=== PATIENT | female | born 1960 | race African-American/Black ===

== ENCOUNTER 2017-07-19 07:32 | Observation (INO) | payer OTHER ==
[2017-07-19 07:56] LABS: #Eosinphils 0.1 thou/uL (0.0-0.7); #Lymphocytes 2.3 thou/uL (1.20-3.40); #Monocytes 0.4 thou/uL (0.11-0.59); #Neutrophils 4.3 thou/uL (1.40-6.50); %Lymphocytes 31.9 % (21.0-51.0); %Monocytes 6.2 % (0.0-10.0); Hematocrit 40.4 % (36.0-47.0); Red Blood Cell (RBC) Count 4.46 mill/uL (4.20-5.40); White Blood Cell (WBC) Count 7.2 thou/uL (4.8-10.8)
--- NOTE | 2017-07-19 08:08 | RAD ---
CHEST 1 VIEW: Date: 07/19/17 HISTORY: Chest pain. Tachycardia. COMPARISON: Chest 2 view dated 06/22/17. FINDINGS: Lungs are clear. No pneumothorax or effusion. Cardiac silhouette and mediastinal contours are normal . IMPRESSION: No acute intrathoracic abnormality. POS: MED
[2017-07-19 08:24] LABS: ALT (SGPT) 18 U/L (8-55); AST (SGOT) 14 U/L (5-34); Alkaline Phosphatase 95 U/L (40-150); Anion Gap 16 mmol/L (10-20); BUN (Urea Nitrogen) 11 mg/dL (9.8-20.1); Bilirubin, Total 0.3 mg/dL (0.2-1.2); CK (CPK) 123 U/L (29-168); Calc. Creatinine Clearance 0 mL/min (70-130); Calcium 9.7 mg/dL (7.8-10.44); Carbon Dioxide 25 mmol/L (22-29); Chloride 104 mmol/L (98-107); Estimated GFR-MDRD 79; Globulin 3.9 g/dL (2.4-3.5); Protein, Total 7.9 g/dL (6.0-8.3)
[2017-07-19 08:27] LABS: Troponin I Less than 0.010 ng/mL (< 0.028)
--- NOTE | 2017-07-19 10:23 | CT ---
CT ARTERIOGRAM CHEST WITH IV CONTRAST AND 3D MIP IMAGING: History: Chest pain, tachycardia. FINDINGS: There is good contrast opacification of the pulmonary arteries and thoracic aorta with normal branch ing of the great vessels from the aortic arch. No pneumothorax, pleural fluid, or mediastinal adenop athy are apparent. Reactive appearing lymph nodes are partially visualized of each axilla. Subglandu lar bilateral breast implants are in place. IMPRESSION: No CT evidence of pulmonary embolus. POS: LUIZA
[2017-07-19 13:35] LABS: Magnesium 1.6 mg/dL (1.6-2.6); Phosphorus 2.8 mg/dL (2.3-4.7)
[2017-07-19 13:39] LABS: Troponin I Less than 0.010 ng/mL (< 0.028)
[2017-07-19] MEDS ORDERED: Acetaminophen 325 MG TAB PO PRN (14:02)
[2017-07-19] MEDS ORDERED: Ondansetron ODT 4 MG TAB PO PRN (14:02)
[2017-07-19] MEDS ORDERED: Ondansetron HCl/PF 4 MG/2 ML Vial IVP PRN (14:02)
[2017-07-19 14:30] VITALS: BMI 43.6
[2017-07-19 15:43] LABS: Troponin I Less than 0.010 ng/mL (< 0.028)
[2017-07-19] MEDS ORDERED: Sodium Chloride 0.9% 1,000 ML IV SCH (16:00)
[2017-07-19] MEDS ORDERED: ISOVUE-370 76%-LOCM 1 ML ONE (16:26)
--- NOTE | 2017-07-19 23:34 | CON ---
DATE OF CONSULTATION: 07/19/2017 ELECTROPHYSIOLOGY CONSULTATION REFERRING PHYSICIAN: Dr. Jey Blas. HISTORY OF PRESENT ILLNESS: I am seeing Ms. 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 Her problems are: 1. Paroxysmal tachyarrhythmias. A. Previous admission in 12/2016. At that point, cardiac workup demonstrated no ischemia and mannie l LVEF on a stress test. B. No documented strips from the tachyarrhythmia episodes. 2. Coronary artery risk factors. A. Hypertension. B. Elevated BMI. ALLERGIES: PENICILLINS. MEDICATIONS AT HOME: Included Norvasc which was recently started. She is off atenolol which she wa s taking before. She is on estrogen supplements, cholecalciferol, multivitamin, magnesium oxide, an d aspirin. SUBJECTIVE: Ms. Bowen is here due to rapid palpitations. 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 She had a monitor placed on her in day surgery, but it was not recorded. She subsequently was sent to the ER where her rhythm was back to normal. These spells are very similar to prior arrhyth laith episodes back in December, at which point she was admitted, then had full cardiac workup, but no ta chyarrhythmia documented. At that point, she was on beta-blockers. She has no stroke-like symptoms or neurological deficits. No fever, chills, or cough. She has no PND or orthopnea at this time. No bleeding issues. REVIEW OF SYSTEMS: The rest of the 12-point review of systems overall unremarkable. PAST MEDICAL HISTORY: As above. SOCIAL HISTORY: The patient denies smoking, ETOH, or drug abuse. She is a registered nurse in our OR. FAMILY HISTORY: Noncontributory. OBJECTIVE DATA: VITAL SIGNS: Blood pressure is 145/86, heart rate 77, respirations 16, temperature 97.7 degrees Fah renheit. GENERAL: She is an alert and oriented woman, in no apparent distress. NECK: Supple. Jugular veins are not distended. CHEST: Coarse without crackles. CARDIOVASCULAR: Heart sounds are regular to rate and rhythm. No murmur or gallop. ABDOMEN: Benign. Bowel sounds positive. EXTREMITIES: Lower extremities without edema, clubbing, or cyanosis. DATABASE: EKGs reviewed from the ER revealing sinus rhythm, rate of 94 beats per minute, no signifi cant ST-T wave changes. Narrow QRS at 82 milliseconds noted. LABORATORY DATA: Sodium 141, potassium 3.5, BUN 11, creatinine 0.89. AST and ALT are 14 and 18. C K 123. Troponin I is less than 0.01 and 0.01. Albumin and globulin are 4 and 3.9. ASSESSMENT AND PLAN: Ms. Bowen is a pleasant 56-year-old woman with a prior history of hypertension , who has recurrent tachypalpitations. Although, she was noted to have heart rates in attach monito r today with palpitations started, it was unfortunately not recorded, not available to me. So far, we are not able to exactly diagnose arrhythmias, but they are definitely present. I discussed treatment options. She already tried beta-blockers and atenolol in the past with breakt hrough arrhythmias with that as well back in December. Considerations to resume beta blockers, increas ing dosages versus switching to diltiazem were discussed with her. On the other hand, she would lik e to have a more accurate diagnosis and this could be done through an electrophysiology study. Also discussed different arrhythmias as well as the statistical chances of her having each which we coul d induce on the EP study. I did discuss the ablation procedures for atrioventricular john reentry tachycardia flutter ablation discussed as well. We might consider basic ablation maneuvers if indee d atrioventricular john reentry tachycardia or flutter is induced or atrioventricular reentrant tac hycardia is induced. Might require medical therapy if atrial fibrillation is seen. For now, stroke risk is low. Risks, benefits of the potential infection, bleeding, tamponade, recurrence, bradycar leilani requiring pacing, stroke risk are all detailed. She understands and willing to proceed. We will schedule her a near date. Thank you again for allowing me to participate in the care of this patient. We will follow with you . Discussed the case with the patient, nurse, and the primary family residents as well.
[2017-07-20 04:54] LABS: #Eosinphils 0.2 thou/uL (0.0-0.7); #Lymphocytes 2.3 thou/uL (1.20-3.40); #Monocytes 0.4 thou/uL (0.11-0.59); #Neutrophils 3.5 thou/uL (1.40-6.50); %Basophils 0.3 % (0.0-1.0); %Eosinophils 2.6 % (0.0-10.0); %Lymphocytes 36.2 % (21.0-51.0); %Monocytes 6.4 % (0.0-10.0); Hematocrit 35.6 % (36.0-47.0); Red Blood Cell (RBC) Count 3.93 mill/uL (4.20-5.40); White Blood Cell (WBC) Count 6.4 thou/uL (4.8-10.8)
--- NOTE | 2017-07-20 04:59 | HP-2 ---
PRIMARY CARE PHYSICIAN: Shahab Gilliland M.D. ATTENDING PHYSICIAN: Fatmata Whitehead M.D. ADMITTING RESIDENT: Artie Arechiga MD. CODE STATUS: FULL. CHIEF COMPLAINT: Palpitations. HISTORY OF PRESENT ILLNESS: This is a 56-year-old female with previous episodes of paroxysmal palpi tations, who presented this morning with chest pain, shortness of breath, and palpitations that star franko suddenly at work. 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 Hospital staff was around the patient and quickly hooked he r up to monitors which showed a heart rate in the 180s. This was not a 12-lead EKG, but per witness es, it appeared to be SVT to the nurses on hand. The patient was wheeled down to the ER. No EKG fr om that time was available at the time of the admission. The patient denies nausea, vomiting, and d iarrhea. Symptoms lasted for 45 minutes. They seemed to resolve after several times the patient to bear down to cause a vagal maneuver. Eventually, this brought her heart rate down. She did not re ceive any medications to reduce her heart rate. In the ER, she was given aspirin. PAST MEDICAL HISTORY: 1. Hypertension. 2. Osteoarthritis. PAST SURGICAL HISTORY: 1. Tonsils and adenoids removed in 1987. 2. BTL in 1982. 3. Bilateral breast augmentation in 1992. 4. Total vaginal hysterectomy with BSO in 1989. 5. Left knee arthroscopy in 2001. 6. Right knee arthroscopy in 2012. 7. Left endoscopic plantar fascia release in 2009. 8. Left tympanoplasty in 2012. 9. Abdominoplasty in 2007. SOCIAL HISTORY: The patient is a never smoker, drinks approximately 1drink per week and denies any recreational drugs. Her occupation is as an operating room nurse. REVIEW OF SYSTEMS: A twelve-point review of systems was done and was negative for everything except for what is listed above. Respiratory: Positive for shortness of breath. Cardiovascular: Positi ve for chest pain, palpitations, and diaphoresis. PHYSICAL EXAMINATION: VITAL SIGNS: Blood pressure 141/88, pulse 72, respiratory rate 14, T-max 97.5, pulse ox 98% on room air. GENERAL: The patient is alert and oriented x4, in no acute distress, obese, and appropriately inter active. EYES: PERRLA, EOMI. Conjunctivae are within normal limits. ENT: Showed normal nasal mucosa and oropharynx. NECK: Supple without lymphadenopathy. No bruits. CARDIOVASCULAR: Regular rate and rhythm without murmurs or gallops. Radial pulses 2+, pedal pulses 2+. RESPIRATORY: Normal effort without retractions. Clear to auscultation bilaterally. SKIN: Warm and dry without cyanosis or lesions. ABDOMEN: Soft, nontender to palpation. Bowel sounds x4 without mass or distention. EXTREMITIES: No clubbing, cyanosis, or edema. MUSCULOSKELETAL: Structure and tone within normal limits. NEUROLOGIC: No focal deficits. Sensation is within normal limits. LABORATORY DATA: White blood cell count 7.2, hemoglobin 13.0, hematocrit 40.4, platelets 385. Sodi um 141, potassium 3.5, chloride 104, bicarbonate 25, BUN 11, creatinine 0.89, glucose 124. Troponin was 0.010 x3. TSH 6 months ago was 2.7. Chest x-ray showed no acute disease. Chest CT was negati ve for pulmonary embolism and showed no other acute disease in the cardiothoracic region. [facility] while the patient was nonsymptomatic, was normal sinus rhythm. ASSESSMENT AND PLAN: 1. Paroxysmal supraventricular tachycardia. We do not have EKG available, but the rate of 180 is n ot consistent with sinus tachycardia and it is quick onset and resolution, it is also not consistent sinus tachycardia, more consistent with paroxysmal supraventricular tachycardia. Dr. Goldsmith with [facility] was consulted in the emergency department and plans [facility] with possible ablation if schedule allows tomorrow. We will make the patient n.p.o . at midnight. If the patient cannot be fit into the schedule tomorrow, he is discussed that he may discharge the patient with rate control medications and follow up soon for study as described above . 2. Hypertension, controlled. Continue amlodipine. 3. Osteoarthritis. We will hold home Celebrex and Tylenol as needed for pain. 4. Surgical menopause. We will continue the patient's home Premarin. History and physical exam, as well as management, discussed with Dr. Fatmata Whitehead who is in [facility] nt.
[2017-07-20 05:10] LABS: PTT 28.6 SEC (22.9-36.1); Prothrombin Time 14.3 SEC (12.0-14.7)
[2017-07-20 05:16] LABS: Anion Gap 9 mmol/L (10-20); BUN (Urea Nitrogen) 11 mg/dL (9.8-20.1); Calc. Creatinine Clearance 178 mL/min (70-130); Calcium 8.7 mg/dL (7.8-10.44); Carbon Dioxide 27 mmol/L (22-29); Chloride 104 mmol/L (98-107); Estimated GFR-MDRD Greater than 90
[2017-07-20] MEDS ORDERED: Potassium Chloride 20 MEQ TAB PO SCH (07:00)
[2017-07-20] MEDS ORDERED: Potassium Chloride 40 MEQ in Sodium Chloride 0.9% 500 ML IVPB SCH (07:45)
--- NOTE | 2017-07-20 08:11 | PDOC.FM ---
- Subjective Subjective: Patient doing well this AM. No significant overnight events. She did have another episode of SVT that resolved with vagal maneuver yesterday evening after being admitted to hospital. - Objective MAR Reviewed: Yes Vital Signs & Weight: Vital Signs (12 hours) Temp Pulse Resp BP BP Pulse Ox 07/20/17 08:00 97.6 F 72 18 136/73 96 07/20/17 07:31 76 145/78 H 07/20/17 07:05 97.6 F 72 18 136/73 96 07/20/17 03:49 98.7 F 76 16 145/78 H 96 07/19/17 22:47 98.6 F 76 16 140/90 97 Weight Weight 137.847 kg I&O: 07/19/17 07/20/17 07/21/17 06:59 06:59 06:59 Intake Total 902 Output Total 600 Balance 302 Result Diagrams: 07/20/17 03:52 07/20/17 03:52 <Karen Ramos - Last Filed: 07/20/17 08:17> - Objective Vital Signs & Weight: Vital Signs (12 hours) Temp Pulse Resp BP BP Pulse Ox 07/20/17 11:03 98.3 F 74 18 135/75 97 07/20/17 08:00 97.6 F 72 18 136/73 96 07/20/17 07:31 76 145/78 H 07/20/17 07:05 97.6 F 72 18 136/73 96 07/20/17 03:49 98.7 F 76 16 145/78 H 96 Weight Weight 137.847 kg I&O: 07/19/17 07/20/17 07/21/17 06:59 06:59 06:59 Intake Total 902 Output Total 600 Balance 302 Result Diagrams: 07/20/17 03:52 07/20/17 03:52 <Charles Muñiz - Last Filed: 07/20/17 11:57> Phys Exam - Physical Examination Constitutional: NAD HEENT: moist MMs, sclera anicteric Neck: supple, full ROM Respiratory: no wheezing, no rales, no rhonchi, clear to auscultation bilateral Cardiovascular: RRR, no significant murmur, no rub Gastrointestinal: soft, non-tender, no distention, positive bowel sounds obese trace edema Neurological: moves all 4 limbs Psychiatric: normal affect, A&O x 3 Skin: no rash, normal turgor, cap refill <2 seconds <Karen Ramos - Last Filed: 07/20/17 08:17> Dx/Plan (1) Paroxysmal SVT (supraventricular tachycardia) Code(s): I47.1 - SUPRAVENTRICULAR TACHYCARDIA Status: Acute Plan: -HR in 180's on admission; resolved with vagal maneuvers -Dr. Goldsmith, home teaching grades 9 thru 12 teacher, consulted; appreciate recommendations -Plans for EP study to evaluate cause of arrhythmias if schedule allows -If schedule does not allow for procedure today, plans for discharge home with rate control medications and EP study in near future -Chest CTA negative for PE (2) HTN (hypertension) Code(s): I10 - ESSENTIAL (PRIMARY) HYPERTENSION Status: Acute Plan: -Continue amlodipine -Monitor BP -BP 145/78 this AM (3) Osteoarthritis Code(s): M19.90 - UNSPECIFIED OSTEOARTHRITIS, UNSPECIFIED SITE Status: Acute Plan: -Hold celebrex in case study is performed -Tylenol as needed for pain (4) Obesity Code(s): E66.9 - OBESITY, UNSPECIFIED Status: Acute Qualifiers: Body mass index: BMI 40.0-44.9 Plan: -Recommend diet and exercise (5) Surgical menopause Code(s): E89.40 - ASYMPTOMATIC POSTPROCEDURAL OVARIAN FAILURE Status: Acute Plan: -Continue primerin <Karen Ramos - Last Filed: 07/20/17 08:17> Attending Addendum - Attending Addendum I personally evaluated the patient and discussed the management with Dr. Olmedo. I agree with the History, Examination, Assessment and Plan documented above with any addition or exceptions noted below. Feels fine now. At least one documented run of SVT on monitor. Dr. Goldsmith to consider EP study/ablation. Lungs: CTA, Cor: RRR no murmur or gallop. Rajiv <Charles Muñiz - Last Filed: 07/20/17 11:57>
--- NOTE | 2017-07-20 13:50 | PRG ---
DATE OF SERVICE: 07/20/2017 I am seeing Ms. Bowen at our [facility] telemetry floor as a followup. SUBJECTIVE: Mrs. Bowen is essentially doing well. OBJECTIVE DATA: VITAL SIGNS: Blood pressure is 135/75, heart rate 74, respirations 18, temperature 98.3 degrees Fah renheit. GENERAL: Alert and oriented woman with elevated BMI, in no apparent distress. NECK: Supple. Jugular veins not distended. CHEST: Coarse without crackles. CARDIOVASCULAR: Heart sounds are regular rate and rhythm. No murmur or gallop. ABDOMEN: Benign. EXTREMITIES: Lower extremities without edema, clubbing or cyanosis. LABORATORY DATA: Hemoglobin 11.4, white cell count is 6.4, platelet count is 328. INR 1.1. Sodium 137, potassium 3.4, BUN 9, creatinine 0.77. ASSESSMENT AND PLAN: Ms. Bowen is a pleasant 56-year-old woman with history of recurrent palpitatio ns. She has had episodes of tachy palpitations and on the recorded telemetry strips was suggestive of supraventricular tachycardia. We are planning an EP study and radiofrequency ablation. Now it h as been postponed hence scheduling issues for tomorrow. Risks, benefits discussed in detail, she is willing to proceed. Thank you again for allowing me to participate in the care of this patient.
[2017-07-20] MEDS: Ibuprofen 600 MG TAB PO PRN (19:57)
--- NOTE | 2017-07-21 06:27 | PDOC.FM ---
- Subjective Subjective: Patient doing well this AM. No significant overnight events. She went down for EP study yesterday, but there was a scheduling conflict so procedure was never performed. She is scheduled to have EP study and radiofrequency ablation performed between 12-[address] Goldsmith. - Objective MAR Reviewed: Yes Vital Signs & Weight: Vital Signs (12 hours) Temp Pulse Resp BP BP Pulse Ox 07/21/17 04:36 97.6 F 74 16 142/86 H 97 07/20/17 23:06 98.4 F 72 22 H 140/78 96 07/20/17 19:07 99.1 F 81 24 H 145/70 H 97 07/20/17 19:01 97.7 F 76 22 H Weight Weight 137.847 kg I&O: 07/19/17 07/20/17 07/21/17 06:59 06:59 06:59 Intake Total 902 1300 Output Total 600 2200 Balance 302 -900 Result Diagrams: 07/20/17 03:52 07/20/17 03:52 EKG Reviewed by me: Yes <Karen Ramos - Last Filed: 07/21/17 11:56> - Objective Vital Signs & Weight: Weight Weight 137.847 kg I&O: 07/21/17 07/22/17 07/23/17 06:59 06:59 06:59 Intake Total 1540 Output Total 2200 Balance -660 Result Diagrams: 07/20/17 03:52 07/20/17 03:52 <Charles Muñiz - Last Filed: 07/22/17 13:23> Phys Exam - Physical Examination Constitutional: NAD HEENT: PERRLA, moist MMs, sclera anicteric Neck: full ROM Respiratory: no wheezing, no rales, no rhonchi, clear to auscultation bilateral Cardiovascular: RRR, no significant murmur, no rub Gastrointestinal: soft, non-tender, no distention, positive bowel sounds Musculoskeletal: pulses present trace edema Neurological: moves all 4 limbs Psychiatric: normal affect, A&O x 3 Skin: no rash, cap refill <2 seconds <Karen Ramos - Last Filed: 07/21/17 11:56> Dx/Plan (1) Paroxysmal SVT (supraventricular tachycardia) Code(s): I47.1 - SUPRAVENTRICULAR TACHYCARDIA Status: Acute Plan: -Dr. Goldsmith, barrel line operator, consulted; appreciate recommendations -Plan for EP study and radiofrequency ablation today per Dr. Goldsmith around 12-1 pm -Chest CTA negative for PE -Patient had an episode of SVT which was captured on electronics technology instructor (2) HTN (hypertension) Code(s): I10 - ESSENTIAL (PRIMARY) HYPERTENSION Status: Acute Plan: -Continue amlodipine -Monitor BP -BP 142/86 this AM (3) Osteoarthritis Code(s): M19.90 - UNSPECIFIED OSTEOARTHRITIS, UNSPECIFIED SITE Status: Acute Plan: -Hold celebrex for procedure -Tylenol as needed for pain (4) Obesity Code(s): E66.9 - OBESITY, UNSPECIFIED Status: Acute Qualifiers: Body mass index: BMI 40.0-44.9 Plan: -Recommend diet and exercise (5) Surgical menopause Code(s): E89.40 - ASYMPTOMATIC POSTPROCEDURAL OVARIAN FAILURE Status: Acute Plan: -Continue Premarin <Karen Ramos - Last Filed: 07/21/17 11:56> Attending Addendum - Attending Addendum I personally evaluated the patient and discussed the management on DOS 07/[address] Ramos. I agree with the History, Examination, Assessment and Plan documented above with any addition or exceptions noted below. She feels well. Cor: RRR no arrhythmias overnight. Will be going for EP strudy and planned RF Ablation tomorrow. Liz <Charles Muñiz - Last Filed: 07/22/17 13:23>
[2017-07-21] MEDS: Ibuprofen 600 MG TAB PO PRN ×2 (09:18→18:27)
[2017-07-21] MEDS ORDERED: Heparin 10,000 UNITS/1 ML VIAL ONE (11:04)
[2017-07-21] MEDS ORDERED: Propofol 500 MG/50 ML VIAL ONE ×3 (12:06→14:49)
[2017-07-21] MEDS ORDERED: Ondansetron HCl/PF 4 MG/2 ML Vial ONE ×2 (12:59→13:04)
[2017-07-21] MEDS ORDERED: Midazolam HCl 2 mg/2 ml Vial ONE (12:59)
[2017-07-21] MEDS ORDERED: PHENYLEPHRINE-NS 100 MCG/ML 10 ML SYRINGE ONE (13:04)
[2017-07-21] MEDS ORDERED: Propofol 200 MG/20 ML VIAL ONE (13:04)
[2017-07-21] MEDS ORDERED: Lidocaine 2% Jelly 5 ML TUBE ONE (13:13)
[2017-07-21] MEDS ORDERED: Propofol 1,000 MG/100 ML VIAL IV ONE (13:26)
[2017-07-21] MEDS ORDERED: Isoproterenol 0.2 MG/1 ML AMP ONE (14:23)
[2017-07-21] MEDS ORDERED: Fentanyl 100 MCG/2 ML VIAL ONE ×2 (15:18→16:16)
[2017-07-21] MEDS ORDERED: Lidocaine 1% PF 5 ML VIAL ONE (15:44)
[2017-07-21] MEDS ORDERED: Ondansetron HCl/PF 4 MG/2 ML Vial IVP PRN ×2 (16:07→16:30)
[2017-07-21] MEDS ORDERED: Promethazine HCl 25 MG/ML VIAL SLOW IVP PRN (16:07)
[2017-07-21] MEDS ORDERED: traMADol HCl 50 MG TAB PO PRN (16:30)
[2017-07-21] MEDS ORDERED: Acetaminophen 325 MG TAB PO PRN (16:30)
[2017-07-21] MEDS ORDERED: Nitroglycerin 0.4 MG TAB (25 Tab Bottle) SL PRN (16:30)
[2017-07-21] MEDS ORDERED: diphenhydrAMINE HCl 25 MG CAP PO PRN (16:30)
[2017-07-21] MEDS ORDERED: Bisacodyl 10 MG SUPP PR PRN (16:30)
[2017-07-21] MEDS ORDERED: Mag-Al 1200 mg/1200 mg/30 ML UDCUP PO PRN (16:30)
[2017-07-21] MEDS ORDERED: Bisacodyl 5 MG TAB PO PRN (16:30)
[2017-07-21] MEDS ORDERED: Temazepam 15 MG CAP PO PRN (16:30)
[2017-07-21 17:28] VITALS: TEMP 97.5
[2017-07-21 19:53] VITALS: BP 140/83
--- NOTE | 2017-07-22 14:29 | CCLSPC ---
DATE OF SERVICE: 07/21/2017 ELECTROPHYSIOLOGY STUDY AND RADIOFREQUENCY ABLATION REPORT REFERRING PHYSICIAN: Charles Muñiz M.D. REASON FOR PROCEDURE: Ms. Bowen is a 56-year-old woman with history of recurrent palpitations with negative cardiac workup so far. 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 She is here for evaluating the nature of her tachyarrhythmias and potential radiofrequency ablat ion. PROCEDURE: The patient received deep sedation by Anesthesia specialist. Both femoral venous areas were prepped, draped and anesthetized using subcutaneous lidocaine. With the help of vascular ultra sound, the left femoral vein was accessed x2 and 6- and 8-Citizen Of [place] short sheath was introduced through which an octapolar catheter was advanced to the RV, His bundle and right atrial area. Also a Decap olar catheter was advanced to the coronary sinus. Mapping, pacing and recording was performed in ea ch location. Following findings were noted. Baseline cycle length is 785, CT 189, QRS 86, QT 429, AH 116, HV 67 milliseconds. AV Wenckebach cyc le length 350, retrograde Wenckebach cycle length less than 360, center retrograde VA activation was seen on the CS lead. Antegrade extra stimuli testing was performed demonstrating AV john ERP less than 600/240 milliseconds and clear dual AV john physiology was present. With RV pacing, we unabl e to induce a narrow complex SVT with VA timing very short less than 60 milliseconds, the cycle bunny th was 399 milliseconds. Ventricular overdrive pacing demonstrating VA-VA response, that is suggest ed typical AV john reentrant tachycardia along with the dual AV john physiology being present. Th e tachycardia was terminable from both A and V overdrive pacing. Following that, the right femoral vein area was accessed without ultrasound guidance and an 8-Citizen [place] sheath was introduced, which was eventually exchanged to a ----- sheath. Through this a 4-mm F-cur ve catheter was advanced to the right atrial geometry map as well as His bundle and CS area map was obtained. Following that, multiple min total of 4 ablations was delivered with the slow pathway a fab. Junctional beats were demonstrated with the min. No AV block was seen. Following that, a r epeat EP testing was performed demonstrating normal HV interval about 50 milliseconds. The AV Wenck ebach cycle length was about 360 milliseconds. Still dual AV john physiology was present on Isupre l. The tachycardia concerned with AVNRT was reinduced. Repeat min were applied eventually elimin ating the inducible tachycardia which remained non-inducible on Isuprel. CONCLUSION: 1. Typical AV john reentrant tachycardia induced. 2. Ablation of the slow pathway eventually eliminates the inducibility of the AV john reentrant ta chycardia. POS: LUIZA
--- NOTE | 2017-07-23 17:44 | EKG ---
Test Reason : Blood Pressure : / mmHG Vent. Rate : 078 BPM Atrial Rate : 078 BPM P-R Int : 194 ms QRS Dur : 088 ms QT Int : 416 ms P-R-T Axes : 074 032 037 degrees QTc Int : 474 ms Normal sinus rhythm Low voltage QRS ( Precordial leads) Borderline ECG Confirmed by JENNYFER SAENZ ([id number]) on 07/23/2017 5:44:25 PM Referred By: ELIU Confirmed By:JENNYFER SAENZ
--- NOTE | 2017-07-24 01:25 | DIS-2 ---
DATE OF ADMISSION: 07/19/2017 DATE OF DISCHARGE: 07/21/2017 RESIDENT: Karen Ramos DO ADMITTING ATTENDING: Charles Muñiz MD DISCHARGE ATTENDING: Charles Muñiz MD CONSULT: Electrophysiology, Jero Goldsmith MD PROCEDURES: 1. Electrophysiology study. 2. Radiofrequency ablation. 3. EKG, normal sinus rhythm, low voltage QRS. PRIMARY DIAGNOSIS: Typical atrioventricular john reentrant tachycardia; supraventricular tachycardia. SECONDARY DIAGNOSES: 1. Hypertension. 2. Osteoarthritis. 3. Obesity. 4. Surgical menopause. DISCHARGE MEDICATIONS: 1. Premarin 1.25 mg oral daily. 2. Vitamin D3 of 5000 units daily. 3. Multivitamin 2 tablets oral daily. 4. Aspirin 81 mg oral daily. 5. Ibuprofen 800 mg oral 3 times daily as needed. 6. Furosemide 40 mg oral daily as needed. 7. Amlodipine 5 mg oral daily. 8. Celebrex 200 mg oral daily. DISCONTINUED MEDICATIONS: None. HISTORY OF PRESENT ILLNESS/HOSPITAL COURSE: This is a 56-year-old female with previous episodes of paroxysmal palpitations, who presented with chest pain, shortness of breath, and palpitations that started suddenly at work. 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 Hospital staff was around the patient and quickly hooked her up to monitors, which showed a heart rate in the 180s. This was not a 12-lead EKG, but per witnesses it appeared to be SVT. The patient was wheeled down to the ER. She denied nausea, vomiting, or diarrhea. Symptoms lasted for approximately 45 minutes. This seemed to resolve after several Valsalva maneuvers. Eventually, the patient's heart rate went down into the normal range. She received aspirin in the ER. The patient remained stable throughout the course of her hospital stay, the evening that she presented to the emergency department, she had a second episode of SVT. Since she was on telemetry, this episode was captured. It was appreciable for supraventricular tachycardia. Dr. Goldsmith was consulted in the emergency department. He opted to perform an electrophysiology study to evaluate for AV john reentrant tachycardia. Additionally, he recommended a radiofrequency ablation. The patient was taken down for her electrophysiology study the morning after admission; however, Dr. Goldsmith's schedule did not allow for the procedure to be done that day, so patient did stay in the hospital an additional day to have procedure performed. The procedure was performed and the electrophysiology study did note an AV john reentrant tachycardia, which was ablated via radiofrequency. Patient denied any more episodes of palpitations. She was stable to be discharged a few hours after the procedure was performed. Dr. Goldsmith did not recommend any further medications to be added to her current medication regimen. The patient is to follow up with Dr. Goldsmith between 2 to 6 weeks for re-evaluation. This was all discussed with the patient and she was in understanding of the plan. DISPOSITION: Stable. DISCHARGE INSTRUCTIONS: 1. Location: Home. 2. Diet: No restrictions. 3. Activity: As tolerated. 4. Followup: The patient is to follow up with training designer, Dr. Goldsmith, within the next 2 to 6 weeks for re-evaluation. These are the recommendations per Dr. Goldsmith. Additionally, the patient is to follow with her primary care physician, Dr. Tee Gilliland within 7 days for hospital followup and to ensure proper management of her current condition. The patient was in understanding of this plan and agreeable. LIV
== END 2017-07-21 21:08 | disposition home or self-care (01) ==
LOC: ERS 07:32 → 2SW 12:10
PROVIDERS: ADMIT Family Medicine; ATTEND Family Medicine
DX: I47.1 Supraventricular tachycardia (principal); I10 Essential (primary) hypertension; M19.90 Unspecified osteoarthritis, unspecified site; E66.9 Obesity, unspecified; Z79.82 Long term (current) use of aspirin; Z79.899 Other long term (current) drug therapy; Z68.41 Body mass index [BMI] 40.0-44.9, adult; Z88.0 Allergy status to penicillin; Z98.51 Tubal ligation status; Z78.0 Asymptomatic menopausal state; Z98.890 Other specified postprocedural states
CPT/HCPCS: 36415; 71010; 71275; 76942; 80048; 80053; 82553; 83735; 84100; 84484; 85025; 85379; 85610; 85730; 93005; 93613; 93623; 93653; 96361; 96365; 96366; C1730; C1769; G0378; J1644; J2001; J2250; J2405; J2704; J3010; J3480; J7050

== ENCOUNTER 2017-07-27 19:30 | Outpatient (CLI) | payer OTHER | END 2017-07-27 19:31 | disposition home or self-care (01) | LOC: SLEEPLAB 19:30 | PROVIDERS: ATTEND Internal Medicine | DX: G47.33 Obstructive sleep apnea (adult) (pediatric) (principal); E66.9 Obesity, unspecified; K21.9 Gastro-esophageal reflux disease without esophagitis; I10 Essential (primary) hypertension; R06.83 Snoring; R35.1 Nocturia | CPT/HCPCS: 95811 ==

== ENCOUNTER 2018-02-14 12:04 | Emergency (ER) | payer OTHER ==
[2018-02-14 13:25] LABS: #Basophils 0.1 thou/uL (0.0-0.2); #Eosinphils 0.1 thou/uL (0.0-0.7); #Lymphocytes 3.2 thou/uL (1.20-3.40); #Monocytes 0.8 thou/uL (0.11-0.59); #Neutrophils 8.5 thou/uL (1.40-6.50); %Basophils 0.4 % (0.0-1.0); %Eosinophils 0.9 % (0.0-10.0); %Monocytes 6.1 % (0.0-10.0); %Neutrophils 67.6 % (42.0-75.0); Hemoglobin 11.5 g/dL (12.0-16.0); Mean Corpuscular HGB CONC 33.3 g/dL (32.0-36.0); Mean Platelet Volume 7.3 fL (7.4-10.4); Platelet Count 398 thou/uL (130-400); RBC Distribution Width 14.9 % (11.5-14.5); Red Blood Cell (RBC) Count 3.84 mill/uL (4.20-5.40); White Blood Cell (WBC) Count 12.6 thou/uL (4.8-10.8)
[2018-02-14 13:52] LABS: ALT (SGPT) 18 U/L (8-55); AST (SGOT) 11 U/L (5-34); Albumin 3.8 g/dL (3.5-5.0); Alkaline Phosphatase 56 U/L (40-150); Anion Gap 12 mmol/L (10-20); BUN (Urea Nitrogen) 32 mg/dL (9.8-20.1); Bilirubin, Total 0.3 mg/dL (0.2-1.2); CK (CPK) 103 U/L (29-168); Calc. Creatinine Clearance 0 mL/min (70-130); Calcium 9.2 mg/dL (7.8-10.44); Carbon Dioxide 22 mmol/L (22-29); Chloride 108 mmol/L (98-107); Estimated GFR-MDRD 71; Globulin 3.2 g/dL (2.4-3.5); Glucose 81 mg/dL (70-105); Lipase 21 U/L (8-78); Potassium 4.4 mmol/L (3.5-5.1); Sodium 138 mmol/L (136-145)
[2018-02-14 13:55] LABS: CKMB 2.7 ng/mL (0-6.6); Troponin I Less than 0.010 ng/mL (< 0.028)
--- NOTE | 2018-02-14 14:17 | RAD ---
PORTABLE CHEST ONE VIEW: Date: 02-14-18 Time: 12:53 p.m. History: Chest pain. FINDINGS: Comparison is made with exam of 07-29-17. There is continued elevation of the right hemidiaphragm. The heart size is normal. No focal areas of consolidation, pneumothorax, mary pulmonary edema or pleural effusions are seen. There are degenerat moody changes of the spine. IMPRESSION: No acute process. POS: ANNETTE
== END 2018-02-14 14:50 | disposition home or self-care (01) ==
LOC: ERS 12:04
DX: R07.2 Precordial pain (principal); I10 Essential (primary) hypertension; Z79.82 Long term (current) use of aspirin; Z79.899 Other long term (current) drug therapy
CPT/HCPCS: 36415; 71045; 80053; 82550; 82553; 83690; 84484; 85025; 93005

== ENCOUNTER 2018-02-26 08:42 | Outpatient (CLI) | payer OTHER | END 2018-02-26 08:43 | disposition home or self-care (01) | LOC: BICMAMMO 08:42 | PROVIDERS: ATTEND Obstetrics & Gynecology | DX: Z12.31 Encounter for screening mammogram for malignant neoplasm of breast (principal) | CPT/HCPCS: 77063; 77067 ==

== ENCOUNTER 2018-09-18 12:14 | Outpatient (CLI) | payer OTHER | END 2018-09-18 12:15 | disposition home or self-care (01) | LOC: CP 12:14 | PROVIDERS: ATTEND Internal Medicine | DX: R05 Cough (principal); R06.09 Other forms of dyspnea; G47.33 Obstructive sleep apnea (adult) (pediatric) | CPT/HCPCS: 94060; 94727; 94729 ==

== ENCOUNTER 2018-12-10 00:01 | Inpatient (IN) | payer OTHER ==
[2018-12-10] MEDS ORDERED: cefTRIAXone\\ROCEPHIN 1 GM VIAL ONE (01:10)
[2018-12-10] MEDS ORDERED: Ondansetron PF 4 MG/2 ML Vial ONE (01:10)
[2018-12-10] MEDS ORDERED: Ketorolac Tromethamine 30 MG/ML VIAL ONE (01:10)
[2018-12-10] MEDS ORDERED: Morphine 4 MG/ML VIAL ONE (01:10)
[2018-12-10 01:13] LABS: Band 6 % (5-11); Lymphocytes 9 % (21-51); MDiff Complete? YES; Mean Corpuscular HGB CONC 31.4 g/dL (32.0-36.0); Mean Corpuscular Hemoglobin 28.1 pg (27.0-31.0); Mean Corpuscular Volume 89.7 fL (78.0-98.0); Mean Platelet Volume 7.7 fL (7.4-10.4); Monocytes 4 % (0-10); Neutrophil 81 % (42-75); Platelet Count 365 thou/uL (130-400); Platelet Morphology Comment Appears Adequate; RBC Distribution Width 15.3 % (11.5-14.5); Red Blood Cell (RBC) Count 4.28 mill/uL (4.20-5.40); White Blood Cell (WBC) Count 22.8 thou/uL (4.8-10.8)
[2018-12-10] MEDS ORDERED: Lidocaine 1% w/Epinephrine 1:100K 20 ML VIAL ONE (01:16)
[2018-12-10 01:18] LABS: ALT (SGPT) 22 U/L (8-55); AST (SGOT) 20 U/L (5-34); Albumin 3.6 g/dL (3.5-5.0); Alkaline Phosphatase 106 U/L (40-150); Anion Gap 15 mmol/L (10-20); BUN (Urea Nitrogen) 13 mg/dL (9.8-20.1); Bilirubin, Total 0.5 mg/dL (0.2-1.2); Calc. Creatinine Clearance 0 mL/min (70-130); Calcium 9.6 mg/dL (7.8-10.44); Carbon Dioxide 24 mmol/L (22-29); Chloride 102 mmol/L (98-107); Estimated GFR-MDRD 61; Glucose 123 mg/dL (70-105); Potassium 4.1 mmol/L (3.5-5.1); Protein, Total 7.6 g/dL (6.0-8.3); Sodium 137 mmol/L (136-145)
[2018-12-10] MEDS ORDERED: Midazolam HCl 2 mg/2 ml Vial ONE (01:28)
--- NOTE | 2018-12-10 02:31 | PDOC.FPRHP ---
- History of Present Illness Chief Complaint: back abscess History of Present Illness: 58 yo F presents to ED for cc of lower back abscess. Started out as pimple two days ago. Did not attempt to pop it, but due to increasing pain, redness and growth came to ED. No drainage. Endorses subjective fevers, chills, some diarrhea initially that has now resolved. Denies any upper respiratory infections, hx of prior abscess or recent trauma to site In the ED BPs were lower limit of normal in low 100s, febrile, tachycardic received 30cc/kg fluids. I&D performed which drained about 30cc per ED resident. - Allergies/Adverse Reactions Allergies Allergy/AdvReac Type Severity Reaction Status Date / Time Penicillins Allergy Verified 12/22/16 13:18 - Home Medications Medication Instructions Recorded Confirmed Type Aspirin Chewable [Aspirin Chewable 81 mg PO DAILY 12/22/16 12/10/18 History Tablet] Cholecalciferol (Vitamin D3) 5,000 unit PO DAILY 12/22/16 12/10/18 History [Vitamin D3] Estrogens, Conjugated [Premarin] 1.25 mg PO DAILY 12/22/16 12/10/18 History Multivitamin [Daily Multiple 1 each PO DAILY 12/22/16 12/10/18 History Vitamin] Amlodipine [Norvasc] 10 mg PO DAILY 07/19/17 12/10/18 History Furosemide [Lasix] 40 mg PO DAILY PRN 07/19/17 12/10/18 History Baclofen 10 mg PO BID 12/10/18 12/10/18 History Diclofenac Sodium/Misoprostol 1 tab PO BID 12/10/18 12/10/18 History [Diclofenac-Misoprost 75-200 Tb] Fluticasone/Vilanterol [Breo 1 puff INH DAILY 12/10/18 12/10/18 History Ellipta 200-25 Mcg INH] Losartan Potassium 25 mg PO DAILY 12/10/18 12/10/18 History Meloxicam 7.5 mg PO BID 12/10/18 12/10/18 History Montelukast Sodium [Singulair] 10 mg PO DAILY 12/10/18 12/10/18 History traMADol HCl [Tramadol HCl ER] 200 mg PO Q6HR PRN 12/10/18 12/10/18 History - History PMHx:DJD, HTN, asthma PSHx: orthopedic surg, b/l knee arthroscopy, hysterectomy, cardiac ablation, colonscopy, abdominoplasty, tympanoplasty, breast augmentation FHx: n/c Social: denies t/e/d - Review of Systems General: reports: fever/chills, weight/appetite/sleep changes Eyes: denies: eye pain, vision changes ENT: denies: nasal congestion, rhinorrhea Respiratory: denies: cough, congestion, shortness of breath Cardiovascular: denies: chest pain, palpitation Gastrointestinal: reports: nausea, diarrhea. denies: vomiting, abdominal pain, GI bleeding Genitourinary: denies: incontinence, dysuria Skin: reports: rashes, lesions (abscess). denies: jaundice Musculoskeletal: reports: pain, tenderness Neurological: denies: numbness, seizure, weakness - Vital signs BP: 107/72 HR: 89 RR: 18 Tmax: 100.1 Pox: 95% on [RA] Wt: 142kg - Physical Exam Constitutional: NAD, awake, alert and oriented HEENT: normocephalic and atraumatic, PERRLA, EOMI, conjunctiva clear, no scleral icterus Neck: supple, FROM, trachea midline Chest: no-tender to palpation, no lesions Heart: RRR, normal S1/S2, no murmurs/rubs/gallops Lungs: CTAB, no respiratory distress, no wheezing Abdomen: soft, non-tender, bowel sounds present, no hernias Musculoskeletal: normal structure, normal tone, ROM grossly normal Neurological: no focal deficit, CN II-XII intact, normal sensation -Skin: right lower paraspinal area with erythema. swelling with 4 skin incisions and darrick drains from I&D, no crepitus Heme/Lymphatic: no unusual bruising or bleeding, no purpura Psychiatric: normal mood and affect, good judgment and insight, intact recent and remote memory FMR H&P: Results - Labs Result Diagrams: 12/10/18 00:34 12/10/18 05:15 Lab results: WBC 22.8 thou/uL (4.8-10.8) H 12/10/18 00:34 Hgb 12.0 g/dL (12.0-16.0) 12/10/18 00:34 Hct 38.4 % (36.0-47.0) 12/10/18 00:34 MCV 89.7 fL (78.0-98.0) 12/10/18 00:34 Plt Count 365 thou/uL (130-400) 12/10/18 00:34 Band Neuts % (Manual) 6 % (5-11) 12/10/18 00:34 Sodium 137 mmol/L (136-145) 12/10/18 00:34 Potassium 4.1 mmol/L (3.5-5.1) 12/10/18 00:34 Chloride 102 mmol/L (98-107) 12/10/18 00:34 Carbon Dioxide 24 mmol/L (22-29) 12/10/18 00:34 BUN 13 mg/dL (9.8-20.1) 12/10/18 00:34 Creatinine 1.11 mg/dL (0.6-1.1) H 12/10/18 00:34 Glucose 123 mg/dL (70-105) H 12/10/18 00:34 Lactic Acid 1.3 mmol/L (0.5-2.2) 12/10/18 00:34 Calcium 9.6 mg/dL (7.8-10.44) 12/10/18 00:34 Total Bilirubin 0.5 mg/dL (0.2-1.2) 12/10/18 00:34 AST 20 U/L (5-34) 12/10/18 00:34 ALT 22 U/L (8-55) 12/10/18 00:34 Alkaline Phosphatase 106 U/L (40-150) 12/10/18 00:34 Serum Total Protein 7.6 g/dL (6.0-8.3) 12/10/18 00:34 Albumin 3.6 g/dL (3.5-5.0) 12/10/18 00:34 - EKG Interpretation EKG: sinus tachycardia - Radiology Interpretation Chest x-ray Status: image reviewed by me, report reviewed by me (no acute cardiopulmonary processes) FMR H&P: A/P - Problem List (1) Sepsis Current Visit: Yes Status: Acute Code(s): A41.9 - SEPSIS, UNSPECIFIED ORGANISM (2) Abscess Current Visit: Yes Status: Acute Code(s): L02.91 - CUTANEOUS ABSCESS, UNSPECIFIED (3) Asthma Current Visit: Yes Status: Acute Code(s): J45.909 - UNSPECIFIED ASTHMA, UNCOMPLICATED (4) HTN (hypertension) Current Visit: No Status: Acute Code(s): I10 - ESSENTIAL (PRIMARY) HYPERTENSION (5) Obesity Current Visit: No Status: Acute Code(s): E66.9 - OBESITY, UNSPECIFIED Qualifiers: Body mass index: BMI 40.0-44.9 (6) Osteoarthritis Current Visit: No Status: Acute Code(s): M19.90 - UNSPECIFIED OSTEOARTHRITIS , UNSPECIFIED SITE - Plan Sepsis 2/2 abscess of left lower back -WBC 22, P 108, Temp 101.4 in ED -s/p 30cc/kg fluids resuscication with I&D & darrick drain placement -s/p vanc & rocephin -received 1g vanc in ED, based on CrCl and weight pt should have 2g loading dose. Will give 1g once more and then continue regimen -will change ceftriaxone to cefepime to include pseudomonas coverage. 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 Roberto Nuno -will hold anitihypertensives since BP on low end in ED -asx, stable, continue to monitor DJD -hold home meds for now since NPO dvt ppx: SCD diet: NPO --> HH FMR H&P: Upper Level - Pertinent history 58 y/o F with HTN presents with a mass on her back. She first noticed it 3 days ago and it has swollen since then, become more painful, and redness has increased. Associated weakness, chills, decreased appetite, and generalized not feeling well. Also pain around the area with fever. PT has no history of abscess in the past. ED course: S/p incision and Drainage with pinrose drains placed. Did receive 30cc/kg IVF which improved initial sinus tachycardia. Morphine given and pain controlled well and pt in good spirits lying in bed. - Pertinent findings PHYSICAL EXAM: GEN: NAD, pleasant CARDIO: RRR, no MRG LUNGS: lungs CTAB, no wheezes, ronchi, non-labored breathing MSK: MAEW, no edema, pulses present and strong SKIN: Bandage overlying lesion o n R Mid back. x4 1cm incisions present with drains present. Minimal erythema visualized WBC 22.8 - Plan Date/Time: 12/10/18 0231 Jesus Lawrence, have evaluated this patient and agree with findings/plan as outlined by post graduate internship resident. Pertinent changes/additions are listed here. 1. Sepsis 2/2 Abscess & Cellulitis - s/p IVF resuscitation in ED. Significant leukocytosis 22.8. Will continue broad spectrum abx and consult surgery in the AM. ED did use packing with pinrose drains for lesion. Continue MIVF and pain control overnight. Margins of cellulitis marked. Will notify gen surgery tonight if margins rapidly spread, but no specific concern for necrotizing fasciitis currently. EKG reviewed and sinus tachycardia which has improved with IVF.. 2. HTN - Hold home medications now as mildly hypotensive. 3. LILIA - likely prerenal; will trend BMP Diet: NPO at midnight DVT PPX: SCDs
[2018-12-10 03:18] VITALS: BMI 45.0
[2018-12-10] MEDS ORDERED: Acetaminophen 1,000 MG in Premix Bag 1 BAG IVPB PRN (03:42)
[2018-12-10] MEDS: Lactated Ringer's 1,000 ML IV SCH ×3 (04:08→21:26)
[2018-12-10] MEDS ORDERED: Vancomycin HCl 1 GM in Premix Bag 1 BAG IVPB SCH (04:30)
[2018-12-10] MEDS ORDERED: Cefepime 2 GM in Sodium Chloride 0.9% 100 ML IVPB SCH (06:00)
--- NOTE | 2018-12-10 06:01 | RAD ---
CHEST ONE VIEW: INDICATIONS: Sepsis protocol. COMPARISON: 02/14/2018 FINDINGS: There is stable elevation of the right hemidiaphragm. Heart size is normal. The lungs are clear. N o pneumothorax is evident. No acute osseous abnormality is noted. IMPRESSION: No acute cardiopulmonary abnormality. POS: BH
[2018-12-10 07:07] LABS: Anion Gap 16 mmol/L (10-20); BUN (Urea Nitrogen) 14 mg/dL (9.8-20.1); Calc. Creatinine Clearance 119 mL/min (70-130); Calcium 8.8 mg/dL (7.8-10.44); Carbon Dioxide 20 mmol/L (22-29); Chloride 105 mmol/L (98-107); Estimated GFR-MDRD 58; Glucose 96 mg/dL (70-105); Potassium 4.1 mmol/L (3.5-5.1); Sodium 137 mmol/L (136-145)
[2018-12-10] MEDS: Morphine 4 MG/ML VIAL SLOW IVP PRN ×2 (08:11→12:32)
[2018-12-10] MEDS: Cefepime 2 GM in Sodium Chloride 0.9% 100 ML IVPB SCH ×2 (08:11→21:28)
[2018-12-10 08:19] LABS: Hemoglobin A1c 5.7 % (4.0-6.0)
--- NOTE | 2018-12-10 10:03 | HP ---
HISTORY OF PRESENT ILLNESS: I have examined the patient. I have discussed the case with Dr. Mary Fay and agree with her assessment and plan. Briefly, Ms. 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 She presented with a 2-day history of abscess on her back that started off as a "pimple." The patient does state she had some fever and chills at home. She is not diabetic. She had I and D of about 30 mL done in the ER. Currently, she is awake and alert, in no distress. PHYSICAL EXAMINATION: VITAL SIGNS: She is afebrile. Blood pressure is 92/64. Her O2 sats on room air 92%. Pulse rate is 97 respirations 16. GENERAL: She is awake, alert, and pleasant, in no distress. EAR, NOSE, AND THROAT: No erythema or exudate. NECK: Supple. CARDIAC: Heart rhythm is regular. No gallop or murmur noted. LUNGS: Clear without rales or wheezes. ABDOMEN: Flat and soft. No guarding, rebound, or rigidity. EXTREMITIES: No edema. NEUROLOGIC: No focal deficits. LABORATORY DATA: White count is 22,800, hemoglobin was 12, hematocrit is 38.4. Chemistries; sodium 137, potassium 4.1, chloride 102, bicarb 24, BUN 13, creatinine 1.11 with a GFR 61. Her glucose is 123. ASSESSMENT: Soft tissue abscess. PLAN: Cultures have been obtained. 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 We will also talk surgery about whether any further I and D is needed. Job ID: [id number]
--- NOTE | 2018-12-10 11:33 | ULT ---
ULTRASOUND SOFT TISSUE TRUNK FOR ABSCESS OR CYST: HISTORY: Evaluation for abscess. COMPARISON: None. FINDINGS: Very extensive infiltration in the subcutaneous fat along the back, on the right side. No drainable fluid collection. The skin is thickened. IMPRESSION: Findings suggestive of cellulitis. No drainable collection. POS: [facility]
[2018-12-10] MEDS ORDERED: Furosemide 40 MG TAB PO PRN (11:57)
[2018-12-10] MEDS ORDERED: Acetaminophen 500 MG TAB PO PRN (12:01)
[2018-12-10] MEDS ORDERED: Tramadol Hcl [Tramadol Hcl Er] 200 MG PO PRN (13:15)
[2018-12-10] MEDS ORDERED: Heparin 1,000 UNITS/ML VIAL ONE (15:00)
[2018-12-10] MEDS: Vancomycin HCl 1.25 GM in Sodium Chloride 0.9% 250 ML 250 ML IVPB SCH (21:28)
[2018-12-10] MEDS: Baclofen 10 MG TAB PO SCH (21:29)
[2018-12-11] MEDS ORDERED: cefTRIAXone\\ROCEPHIN 1 GM in Sodium Chloride 0.9% 100 ML IVPB SCH (01:00)
[2018-12-11] MEDS: Lactated Ringer's 1,000 ML IV SCH ×4 (05:39→23:40)
[2018-12-11] MEDS: Morphine 4 MG/ML VIAL SLOW IVP PRN (06:01)
[2018-12-11 06:40] LABS: #Eosinphils 0.2 thou/uL (0.0-0.7); #Lymphocytes 1.7 thou/uL (1.20-3.40); #Monocytes 0.9 thou/uL (0.11-0.59); #Neutrophils 12.7 thou/uL (1.40-6.50); %Lymphocytes 10.9 % (21.0-51.0); Hemoglobin 10.7 g/dL (12.0-16.0); Mean Corpuscular HGB CONC 31.2 g/dL (32.0-36.0); Mean Corpuscular Hemoglobin 28.1 pg (27.0-31.0); Mean Platelet Volume 7.7 fL (7.4-10.4); Platelet Count 348 thou/uL (130-400); RBC Distribution Width 15.3 % (11.5-14.5); Red Blood Cell (RBC) Count 3.81 mill/uL (4.20-5.40); White Blood Cell (WBC) Count 15.5 thou/uL (4.8-10.8)
[2018-12-11 06:57] LABS: Anion Gap 12 mmol/L (10-20); BUN (Urea Nitrogen) 15 mg/dL (9.8-20.1); Calc. Creatinine Clearance 113 mL/min (70-130); Calcium 8.9 mg/dL (7.8-10.44); Carbon Dioxide 23 mmol/L (22-29); Chloride 105 mmol/L (98-107); Estimated GFR-MDRD 55; Glucose 107 mg/dL (70-105); Potassium 4.3 mmol/L (3.5-5.1); Sodium 136 mmol/L (136-145)
--- NOTE | 2018-12-11 07:42 | PDOC.FM ---
- Subjective Subjective: Patient reports spreading of swelling and redness around her right side. Also reports fevering on & off overnight. Plans to go to OR today with Dr. Sidhu. Denies any N/V and reports pain is currently ok as she just received IV morphine around 0600. - Objective MAR Reviewed: Yes Vital Signs & Weight: Vital Signs (12 hours) Temp Pulse Resp BP Pulse Ox 12/11/18 07:05 98.4 F 97 20 94/67 99 12/11/18 06:54 96 20 93 L 12/11/18 05:04 99.5 F 107 H 18 100/68 93 L 12/11/18 00:27 105 H 22 H 92 L 12/11/18 00:00 99.4 F 105 H 18 97/64 92 L 12/10/18 20:00 98.7 F 93 18 95/62 93 L Weight Weight 142.428 kg I&O: 12/10/18 12/11/18 12/12/18 06:59 06:59 06:59 Intake Total 2350 Balance 2350 Result Diagrams: 12/11/18 05:59 12/11/18 05:59 Phys Exam - Physical Examination Constitutional: NAD HEENT: moist MMs Neck: supple, full ROM Respiratory: no wheezing, no rales, no rhonchi, clear to auscultation bilateral Cardiovascular: RRR, no significant murmur Gastrointestinal: positive bowel sounds Neurological: non-focal, moves all 4 limbs Psychiatric: normal affect, A&O x 3 Skin: normal turgor Deviation from normal: right mid back covered with dry clean & intact dressing -: areas of warmth palpated outside dressing w/ TTP just below R axilla Dx/Plan (1) Cellulitis Code(s): L03.90 - CELLULITIS, UNSPECIFIED Status: Acute (2) Leukocytosis Code(s): D72.829 - ELEVATED WHITE BLOOD CELL COUNT, UNSPECIFIED Status: Acute (3) LILIA (acute kidney injury) Code(s): N17.9 - ACUTE KIDNEY FAILURE, UNSPECIFIED Status: Acute (4) CKD (chronic kidney disease) Code(s): N18.9 - CHRONIC KIDNEY DISEASE, UNSPECIFIED Status: Acute (5) Asthma Code(s): J45.909 - UNSPECIFIED ASTHMA, UNCOMPLICATED Status: Acute (6) Sepsis Code(s): A41.9 - SEPSIS, UNSPECIFIED ORGANISM Status: Acute (7) HTN (hypertension) Code(s): I10 - ESSENTIAL (PRIMARY) HYPERTENSION Status: Chronic Qualifiers: Hypertension type: essential hypertension Qualified Code(s): I10 - Essential (primary) hypertension (8) Obesity Code(s): E66.9 - OBESITY, UNSPECIFIED Status: Chronic Qualifiers: Body mass index: BMI 40.0-44.9 (9) Osteoarthritis Code(s): M19.90 - UNSPECIFIED OSTEOARTHRITIS, UNSPECIFIED SITE Status: Acute (10) Paroxysmal SVT (supraventricular tachycardia) Code(s): I47.1 - SUPRAVENTRICULAR TACHYCARDIA Status: Chronic - Plan Plan: Sepsis 2/2 purulent cellulitis of right lower back, improving -WBC 22, P 108, Temp 101.4 in ED. Tmax of 100.9 yesterday w/ tachycardia & hypotension. WBC improved to 15 this AM. -s/p 30cc/kg fluids resuscitation with I&D & darrick drain placement -Will continue IV vancomycin and cefepime & IVFs w/ LR @ 150mL/hr. -Prelim fluid cxs showing + gram cocci in clusters. Blood Cxs NTD. -procal 0.16 yesterday -Will continue tylenol for fever & morphine & tramadol for pain control. - Patient going to OR for I&D w/ general surgery this AM. LILIA on suspected CKD III - Per chart review eGFR ~60 months prior. Patient endorses h/o chronic heavy NSAID use for DJD. - Will continue mIVFs & hold NSAIDS during hospital stay. - Will continue to monitor w/ QD BMPs. SVT s/p ablation -stable, not on any meds for this -follows with Dr. Mejia HTN -Will hold anitihypertensives since BP continues to run low & continue IVFs. -Asx, stable, continue to monitor DJD -Will hold home meds for now since NPO dvt ppx: SCD diet: ABDULLAHI
[2018-12-11] MEDS: Cefepime 2 GM in Sodium Chloride 0.9% 100 ML IVPB SCH ×2 (08:32→20:13)
[2018-12-11] MEDS ORDERED: traMADol HCl 50 MG TAB PO PRN (08:57)
[2018-12-11] MEDS ORDERED: Amlodipine 10 MG TAB PO SCH (09:00)
[2018-12-11] MEDS ORDERED: Amlodipine 5 MG TAB PO SCH (09:00)
[2018-12-11] MEDS ORDERED: Losartan 25 MG TAB PO SCH (09:00)
[2018-12-11] MEDS ORDERED: ESTROGENS CONJUGATED 1.25 MG PO SCH (09:00)
[2018-12-11] MEDS ORDERED: Non-Formulary Item 1 EACH (Cholecalciferol (Vitamin D3) [Vitamin D3] 5,000 UNIT) PO SCH (09:00)
[2018-12-11] MEDS ORDERED: Non-Formulary Item 1 EACH (Multivitamin [Daily Multiple Vitamin] 1 EACH) PO SCH (09:00)
[2018-12-11] MEDS: Vancomycin HCl 1.25 GM in Sodium Chloride 0.9% 250 ML 250 ML IVPB SCH ×2 (09:43→21:42)
[2018-12-11] MEDS: Aspirin Chewable 81 MG TAB PO SCH (10:17)
[2018-12-11] MEDS: Baclofen 10 MG TAB PO SCH ×2 (10:17→20:12)
[2018-12-11] MEDS: Montelukast Sodium 10 mg Tablet PO SCH (10:17)
[2018-12-11] MEDS: Multivit, Therapeutic 1 TAB PO SCH (10:18)
--- NOTE | 2018-12-11 12:26 | PRG ---
DATE OF SERVICE: 12/11/2018 ADDENDUM: This is an addendum to the note of Dr. Radha Figueroa. Ms. Cueto was still have some significant back and flank pain over the site of her abscess, and was seen by Surgery. She will be taken later today for further I and D, although soft tissue ultrasound did not reveal a drainable pocket. Her white count has improved, although she does maintain a low-grade fever. We will continue our current antibiotic regimen. Pending final culture results and further culture results from surgery. Job ID: [id number]
[2018-12-11] MEDS ORDERED: Scopolamine 1.5 mg/72 hour Patch ONE (13:33)
[2018-12-11] MEDS ORDERED: Bupivacaine/Epinephrine 0.25% 30 ML VIAL ONE (14:03)
[2018-12-11] MEDS ORDERED: Midazolam HCl 2 mg/2 ml Vial ONE (14:15)
[2018-12-11] MEDS ORDERED: Fentanyl 250 MCG/5 ML VIAL ONE (14:15)
[2018-12-11] MEDS ORDERED: Lidocaine 1% PF 5 ML VIAL ONE (15:10)
[2018-12-11] MEDS ORDERED: Rocuronium Bromide 10 MG/ML (10ML VIAL) ONE (15:10)
[2018-12-11] MEDS ORDERED: PROPOFOL 200 MG/20 ML VIAL ONE (15:10)
[2018-12-11] MEDS ORDERED: Glycopyrrolate 0.2 MG/ML 5 ML SYRINGE ONE (15:10)
[2018-12-11] MEDS ORDERED: Ondansetron PF 4 MG/2 ML Vial ONE (15:10)
[2018-12-11] MEDS ORDERED: HYDROmorphone 2 MG/ML VIAL ONE (15:43)
[2018-12-11] MEDS ORDERED: HYDROmorphone 2 MG/ML VIAL SLOW IVP PRN (15:55)
[2018-12-11] MEDS ORDERED: Ondansetron HCl/PF 4 MG/2 ML Vial IVP PRN (15:55)
[2018-12-11] MEDS ORDERED: PACU-Morphine 4MG/ML VIAL SLOW IVP PRN (15:55)
[2018-12-11] MEDS ORDERED: Promethazine HCl 25 MG/ML VIAL SLOW IVP PRN (15:55)
[2018-12-11] MEDS ORDERED: Promethazine HCl 25 MG/ML VIAL IM PRN ×2 (15:55→16:04)
[2018-12-11] MEDS ORDERED: HYDROmorphone 10 mg/100 ml CADD IVPB PRN (16:04)
[2018-12-11] MEDS ORDERED: diphenhydrAMINE 50 MG/ML VIAL IVP PRN (16:04)
[2018-12-11] MEDS ORDERED: Ondansetron PF 4 MG/2 ML Vial IVP PRN (16:04)
[2018-12-11] MEDS ORDERED: Zolpidem Tartrate 5 MG TAB PO PRN (16:04)
[2018-12-11] MEDS ORDERED: diphenhydrAMINE 50 MG/ML VIAL IM PRN (16:04)
[2018-12-11] MEDS ORDERED: diphenhydrAMINE 25 MG CAP PO PRN (16:04)
[2018-12-11] MEDS ORDERED: Naloxone HCl 0.4 mg/ml Vial IV PRN (16:04)
[2018-12-11] MEDS ORDERED: Communication Order-Pharmacy FS SCH (16:15)
[2018-12-11] MEDS ORDERED: Fentanyl 100 MCG/2 ML VIAL ONE (16:48)
[2018-12-11 21:07] LABS: Vancomycin, Trough 18.3 ug/mL
[2018-12-12] MEDS: Lactated Ringer's 1,000 ML IV SCH (05:18)
--- NOTE | 2018-12-12 06:42 | PDOC.FM ---
- Subjective Subjective: Patient states her pain is markedly this AM. Denies any chest pain, SOB, or N/V/ D. Does endorse fevering up to 102.4F overnight but says her fever broke around 0400. Says she is still not urinating much but is tolerating PO. - Objective MAR Reviewed: Yes Vital Signs & Weight: Vital Signs (12 hours) Temp Pulse Resp BP Pulse Ox 12/12/18 05:08 99.5 F 104 H 18 103/66 93 L 12/12/18 01:46 108 H 18 96 12/12/18 00:00 99.9 F H 110 H 18 121/56 L 91 L 12/11/18 20:00 98 F 83 18 101/54 L 98 12/11/18 19:42 82 18 96 Weight Weight 142.428 kg I&O: 12/10/18 12/11/18 12/12/18 06:59 06:59 06:59 Intake Total 2350 2500 Balance 2350 2500 Result Diagrams: 12/12/18 07:17 12/12/18 07:17 Phys Exam - Physical Examination Constitutional: NAD HEENT: moist MMs Neck: supple, full ROM Respiratory: no wheezing, no rales, no rhonchi, clear to auscultation bilateral Cardiovascular: RRR, no significant murmur Gastrointestinal: positive bowel sounds Neurological: non-focal, moves all 4 limbs Psychiatric: normal affect, A&O x 3 Skin: no rash Deviation from normal: R-mid back wound covered with a wound vac Dx/Plan (1) Cellulitis Code(s): L03.90 - CELLULITIS, UNSPECIFIED Status: Acute Qualifiers: Site of cellulitis: trunk Site of cellulitis of trunk: back Qualified Code(s): L03.312 - Cellulitis of back [any part except buttock] (2) Leukocytosis Code(s): D72.829 - ELEVATED WHITE BLOOD CELL COUNT, UNSPECIFIED Status: Acute (3) LILIA (acute kidney injury) Code(s): N17.9 - ACUTE KIDNEY FAILURE, UNSPECIFIED Status: Ruled-out (4) CKD (chronic kidney disease) Code(s): N18.9 - CHRONIC KIDNEY DISEASE, UNSPECIFIED Status: Acute (5) Sepsis Code(s): A41.9 - SEPSIS, UNSPECIFIED ORGANISM Status: Ruled-out (6) HTN (hypertension) Code(s): I10 - ESSENTIAL (PRIMARY) HYPERTENSION Status: Chronic Qualifiers: Hypertension type: essential hypertension Qualified Code(s): I10 - Essential (primary) hypertension (7) Obesity Code(s): E66.9 - OBESITY, UNSPECIFIED Status: Chronic Qualifiers: Body mass index: BMI 40.0-44.9 (8) Osteoarthritis Code(s): M19.90 - UNSPECIFIED OSTEOARTHRITIS, UNSPECIFIED SITE Status: Acute (9) Paroxysmal SVT (supraventricular tachycardia) Code(s): I47.1 - SUPRAVENTRICULAR TACHYCARDIA Status: Chronic (10) VICKY on CPAP Code(s): G47.33 - OBSTRUCTIVE SLEEP APNEA (ADULT) (PEDIATRIC); Z99.89 - DEPENDENCE ON OTHER ENABLING MACHINES AND DEVICES Status: Acute - Plan Plan: Sepsis 2/2 purulent cellulitis of right lower back, improving -WBC 22, P 108, Temp 101.4 in ED. Tmax of 99.9F yesterday w/ persistent tachycardia & hypotension. WBC continues to improve. - Post-op day #1 s/p surgical I&D by Dr. Sidhu yesterday. - Will consider de-escalating IV abx & IVFs today as prelim cxs + for staph & patient is tolerating PO. - Blood Cxs NTD @ 48 hours at midnight. - Will continue tylenol for fever. Anethesia ordered a Dilaudid pump for pain control. Will consider de-escalating today as patient has not required it's use yet & want to get on a pain regimen she will tolerate at home. Suspected CKD III - Per chart review eGFR ~60 months prior. Patient endorses h/o chronic heavy NSAID use for DJD. eGFR stable in the ~50s since admission. - Will de-escalte mIVFs as patient is tolerating PO & hold NSAIDS during hospital stay. - Will continue to monitor w/ QD BMPs. SVT s/p ablation -stable, not on any meds for this -follows with Dr. Mjeia HTN -Will hold anitihypertensives since BP continues to run low & continue IVFs. -Asx, stable, continue to monitor DJD -Will hold NSAIDS while in hospital due to impaired renal function. VICKY on CPAP: - Encouraged use of home CPAP while in hospital. dvt ppx: SCDs, lovenox diet: CC Abx: Cefepime & vancomyinc (12/10) GI PPx: none Dispo: Will likely continue IV abx for 1 more day & consider de-escalating to PO tomorrow w/ possible d/c home then if pain is well controlled on a PO regimen.
[2018-12-12 07:24] LABS: #Eosinphils 0.3 thou/uL (0.0-0.7); #Lymphocytes 2.4 thou/uL (1.20-3.40); #Monocytes 0.9 thou/uL (0.11-0.59); #Neutrophils 9.3 thou/uL (1.40-6.50); %Basophils 0.4 % (0.0-1.0); %Eosinophils 2.1 % (0.0-10.0); %Lymphocytes 18.1 % (21.0-51.0); %Monocytes 7.2 % (0.0-10.0); %Neutrophils 72.2 % (42.0-75.0); Hemoglobin 10.1 g/dL (12.0-16.0); Mean Corpuscular HGB CONC 30.7 g/dL (32.0-36.0); Mean Corpuscular Volume 91.3 fL (78.0-98.0); Mean Platelet Volume 7.5 fL (7.4-10.4); Platelet Count 336 thou/uL (130-400); RBC Distribution Width 15.3 % (11.5-14.5); Red Blood Cell (RBC) Count 3.61 mill/uL (4.20-5.40); White Blood Cell (WBC) Count 12.9 thou/uL (4.8-10.8)
[2018-12-12 07:47] LABS: Anion Gap 12 mmol/L (10-20); BUN (Urea Nitrogen) 13 mg/dL (9.8-20.1); Calc. Creatinine Clearance 116 mL/min (70-130); Calcium 8.9 mg/dL (7.8-10.44); Carbon Dioxide 23 mmol/L (22-29); Chloride 105 mmol/L (98-107); Estimated GFR-MDRD 56; Glucose 112 mg/dL (70-105); Potassium 4.7 mmol/L (3.5-5.1); Sodium 135 mmol/L (136-145)
[2018-12-12] MEDS: Montelukast Sodium 10 mg Tablet PO SCH (09:22)
[2018-12-12] MEDS: Aspirin Chewable 81 MG TAB PO SCH (09:22)
[2018-12-12] MEDS: Multivit, Therapeutic 1 TAB PO SCH (09:23)
[2018-12-12] MEDS: Baclofen 10 MG TAB PO SCH ×2 (09:23→21:54)
[2018-12-12] MEDS: Cefepime 2 GM in Sodium Chloride 0.9% 100 ML IVPB SCH (09:24)
[2018-12-12] MEDS: Vancomycin HCl 1.25 GM in Sodium Chloride 0.9% 250 ML 250 ML IVPB SCH ×2 (09:30→21:54)
[2018-12-12] MEDS: Enoxaparin Sodium 40 MG/0.4 ML SYRINGE SC SCH ×2 (09:37→21:54)
--- NOTE | 2018-12-12 12:50 | PRG ---
DATE OF SERVICE: 12/12/2018 Ms. Cueto went to surgery yesterday for further wound debridement and clean out. She feels better this morning. Her wound culture from the ER is growing MRSA, and we will drop her coverage to vancomycin only. Her white count this morning has dropped to 12,900 from 15,500. She is currently afebrile. Clinically improved. Continue to follow with Surgery. Job ID: [id number]
--- NOTE | 2018-12-12 13:35 | PQF ---
CLINICAL DOCUMENTATION IMPROVEMENT CLARIFICATION FORM: ICD-10 Updated PLEASE DO AN ADDENDUM TO THE PROGRESS NOTE WITH ANY DOCUMENTATION UPDATES OR ADDITIONS AND CARRY THROUGH TO DC SUMMARY. THANK YOU. DATE: 12/12/2018 ATTN: Dr. Figueroa/ Attending Dr. Rios Please exercise your independent, professional judgment in responding to the clarification form. Clinical indicators are provided on the bottom of this form for your review Please check appropriate box(s) to clarify if the following diagnosis has been ruled in or ruled out: SEPSIS [ ] Ruled in diagnosis [ ] Continue to treat [ ] Resolved [ x ] Ruled out diagnosis [ ] Cannot rule out diagnosis [ ] Other diagnosis [ ] Unable to determine In addition, please specify: Present on Admission (POA): [ x ] Yes [ ] No [ ] Unable to determine For continuity of documentation, please document condition throughout progress notes and discharge summary. Thank You. CLINICAL INDICATORS - SIGNS / SYMPTOMS / LABS PN 12/12: DX/Plan: Sepsis. Ruled-out Plan: Sepsis 2/2 purulent cellulitis of r lower back, improving. Will consider de-escalating IV abx & IVFs today as prelim cxs + for staph & pt is tolerating PO Blood Cxs NTD @ 48 hrs at midnight RISKS: H&P 12/10: Obesity. Sepsis 2/2 abscess & cellulitis. HTN. LILIA - likely prerenal. TREATMENT: H&P: I&D performed Order 12/10: Vancomycin HCL 1.25 gm IV OP Note (Parrent) 12/11: I&D abscess Thank you, Shalonda (This form is maintained as a part of the permanent medical record) 2014 [employer]. All Rights Reserved Shalonda Aguilera RN, BSN [email or web address] Office: [phone] [facility]
--- NOTE | 2018-12-12 13:44 | PRG ---
DATE OF SERVICE: 12/12/2018 SUBJECTIVE: Ms. Cueto' pain is improved. She is using the HOSTESS regularly. Wound VAC is still intact. OBJECTIVE: She is afebrile and her vital signs are stable. LABORATORY DATA: White blood cell count today is 12. Creatinine 1.19. Cultures; preliminary culture showed MRSA. ASSESSMENT: Necrotizing status post debridement with wound VAC. She will need home VAC and outpatient wound care. Change to oral antibiotics when susceptibilities have returned. Job ID: [id number]
--- NOTE | 2018-12-12 13:46 | OP ---
DATE OF PROCEDURE: 12/11/2018 PREOPERATIVE DIAGNOSIS: Necrotizing infection, soft tissues, back. POSTOPERATIVE DIAGNOSIS: Necrotizing infection, soft tissues, back. PROCEDURE PERFORMED: Debridement of skin and subcutaneous tissue and incision and drainage of necrotizing infection to back subcutaneous tissues. SURGEON: Pawan Sidhu MD ANESTHESIA: General. ESTIMATED BLOOD LOSS: Minimal. COMPLICATIONS: None. CULTURES: Taken for anaerobes and aerobes. DESCRIPTION OF PROCEDURE: The patient was taken to the operating room and laid supine on the operating room table. After general anesthetic was obtained, placed in left lateral decubitus position. The previous Kirk drains and dressings are removed. The back wound all the way around to the front of her torso was prepped and draped in a sterile fashion. Where the four counter incisions were made, all the skin was ellipsed out into a large cavity full of purulent material. There was some necrotic fat underneath that was debrided. The wound tracks medial around towards the right breast. The wound was open throughout the course of this tunneling. There was a small scab type wound on the right lateral breast and the extension of this cavity goes all the way to that point. A counter incision was made in the area of this. The wound was irrigated. Cultures were taken. Meticulous hemostasis was obtained. A wound VAC was placed immediately on the wound in the operating room. The patient was sent to Recovery in stable condition. All instrument counts, needle counts, lap counts were correct. Job ID: [id number]
[2018-12-12] MEDS: Acetaminophen 325 MG TAB PO PRN (15:34)
--- NOTE | 2018-12-12 16:25 | CON ---
DATE OF CONSULTATION: 12/12/2018 HISTORY OF PRESENT ILLNESS: Ms. Cueto is a 58-year-old female, who works here in the operating room. I was consulted by Anesthesia. After a big surgery for what was felt to be necrotizing fasciitis. I do not see an operative note in the computer yet. She says she is feeling better than she felt prior to her surgery. She noticed on Monday of last week that she had pain under her breast and arm on the right and this progressed to a point where she could not lay on her right side. Her finally made her to come to the emergency department because she did not want to go to the hospital. PAST MEDICAL HISTORY: Remarkable for hypertension, asthma, as well as sleep apnea. Her is bringing her CPAP up as it was not here last night. PAST SURGICAL HISTORY: Remarkable for bilateral knee surgery, hysterectomy, AFib ablation, abdominoplasty in the past, and breast augmentation. SOCIAL HISTORY: She is a nonsmoker and nondrinker. FAMILY HISTORY: Negative for lung disease in early age. REVIEW OF SYSTEMS: A 10-point review of systems completed. Negative except for pain under her right arm, right breast, and around into her back. PHYSICAL EXAMINATION: VITAL SIGNS: She is afebrile, heart rate is 94, respiratory rate is 20, oximetry is 97, blood pressure 111/69. GENERAL: She is standing in the room, getting ready to go for walker. HEENT: Pupils were equal. Throat was clear. NECK: Without lymphadenopathy. LUNGS: Clear. HEART: Regular rhythm. S1 and S2 are normal. ABDOMEN: Soft and nontender. EXTREMITIES: Without clubbing, cyanosis, or edema. She has a wound VAC in place. LABORATORY DATA: White count 12.9, hemoglobin 10.1, and platelets 336. Sodium 135, potassium 4.7, chloride 105, bicarb 23, BUN 30, and creatinine 1.19, which is improved. She says her urine is almost tea-colored yesterday, but the color is improving. IMPRESSION: ? Necrotizing fasciitis. PLAN: She is only on vancomycin at this time. The initial culture was suggestive of possible mixed ngoc. The anaerobic culture is still pending. I would recommend discussing with Dr. Sidhu the need for broader antimicrobial therapy as it is unusual for methicillin-resistant Staph to create this much soft tissue destruction. She appears to be stable now and subjectively is improving and clinically appears to be improving. This is a 70 minute consult, with greater than 50% of time spent on unit coordinating care. Job ID: [id number] MTDD
--- NOTE | 2018-12-12 16:38 | SPC ---
LEFT UPPER EXTREMITY PICC LINE WITH ULTRASOUND GUIDANCE: HISTORY: MRSA infection. COMPARISON: None. EXPOSURE: 1.2 minutes 16,424 mGy per cm2. FINDINGS: Successful left upper extremity PICC line placement. Trim length is 48 cm. Distal tip is in the sup erior vena cava. Both lumen flush and aspirate without difficulty. TECHNIQUE: Consent obtained to perform a left upper extremity PICC line with ultrasound guidance. The left arm was prepped and draped in a sterile fashion, and 1% Lidocaine buffered with sodium bicarbonate was us ed for local anesthesia. Under ultrasound guidance, a micropuncture needle was used to cannulate the brachial vein. A 0.018 guidewire was advanced through the needle, to the level of the superior vena cava. Under fluoroscopy, the wire was advanced into the inferior vena cava, to document venous acce ss. The wire was subsequently pulled back to the superior vena cava. The tract was dilated. A dual -lumen 5-Tuvaluan catheter was advanced over the wire. Both lumen flush and aspirate without difficult y. Trim length is 48 cm. IMPRESSION: Successful left upper extremity peripherally inserted central catheter line placement with ultrasound guidance. POS: ANNETTE
[2018-12-12] MEDS: Polyethylene Glycol 3350 17 GM Packet PO SCH (21:50)
[2018-12-12] MEDS: Docusate 100 MG CAP PO SCH (21:53)
[2018-12-12] MEDS ORDERED: Clindamycin/D5W 900 MG in Premix Bag 1 BAG IVPB SCH (22:00)
--- NOTE | 2018-12-13 06:46 | PDOC.FM ---
- Subjective Subjective: Patient states she feel well this AM. Says her pain is well-controlled w/ [employer] pump. Denies any chest pain, SOB, N/V/D, or wheezing. Does endorse a headache and says tylenol did not help it. Says her back pain is currently 5/10 in severity. - Objective MAR Reviewed: Yes Vital Signs & Weight: Vital Signs (12 hours) Temp Pulse Resp BP Pulse Ox 12/13/18 04:00 98.5 F 83 18 124/79 91 L 12/13/18 00:02 90 18 94 L 12/13/18 00:00 98.8 F 90 18 100/68 92 L 12/12/18 20:00 93 L 12/12/18 19:37 98.6 F 100 20 114/77 92 L 12/12/18 19:03 91 18 97 Weight Weight 142.428 kg I&O: 12/11/18 12/12/18 12/13/18 06:59 06:59 06:59 Intake Total 2350 2500 1200 Balance 2350 2500 1200 Result Diagrams: 12/13/18 07:11 12/13/18 07:11 Phys Exam - Physical Examination Constitutional: NAD HEENT: moist MMs Neck: supple, full ROM Respiratory: no wheezing, no rales, no rhonchi, clear to auscultation bilateral Cardiovascular: RRR, no significant murmur Gastrointestinal: soft, positive bowel sounds Musculoskeletal: no edema Neurological: non-focal, moves all 4 limbs Psychiatric: normal affect, A&O x 3 Deviation from normal: large open excision site in right mid-back w/ wound vac in place -: tight seal on wound vac w/ no leaks noted Dx/Plan (1) Cellulitis Code(s): L03.90 - CELLULITIS, UNSPECIFIED Status: Acute Qualifiers: Site of cellulitis: trunk Site of cellulitis of trunk: back Qualified Code(s): L03.312 - Cellulitis of back [any part except buttock] (2) Leukocytosis Code(s): D72.829 - ELEVATED WHITE BLOOD CELL COUNT, UNSPECIFIED Status: Acute (3) LILIA (acute kidney injury) Code(s): N17.9 - ACUTE KIDNEY FAILURE, UNSPECIFIED Status: Ruled-out (4) CKD (chronic kidney disease) Code(s): N18.9 - CHRONIC KIDNEY DISEASE, UNSPECIFIED Status: Acute (5) Sepsis Code(s): A41.9 - SEPSIS, UNSPECIFIED ORGANISM Status: Ruled-out (6) HTN (hypertension) Code(s): I10 - ESSENTIAL (PRIMARY) HYPERTENSION Status: Chronic Qualifiers: Hypertension type: essential hypertension Qualified Code(s): I10 - Essential (primary) hypertension (7) Obesity Code(s): E66.9 - OBESITY, UNSPECIFIED Status: Chronic Qualifiers: Body mass index: BMI 40.0-44.9 (8) Osteoarthritis Code(s): M19.90 - UNSPECIFIED OSTEOARTHRITIS, UNSPECIFIED SITE Status: Acute (9) Paroxysmal SVT (supraventricular tachycardia) Code(s): I47.1 - SUPRAVENTRICULAR TACHYCARDIA Status: Chronic (10) VICKY on CPAP Code(s): G47.33 - OBSTRUCTIVE SLEEP APNEA (ADULT) (PEDIATRIC); Z99.89 - DEPENDENCE ON OTHER ENABLING MACHINES AND DEVICES Status: Acute - Plan Plan: Purulent cellulitis vs. necrotizing infection of right lower back, improving -WBC 22, P 108, Temp 101.4 in ED. Tmax of 99.9F yesterday w/ persistent tachycardia & hypotension. WBC continues to improve. WNLs at 10.5 this AM. - Post-op day #2 s/p surgical I&D by Dr. Sidhu. - Will consider adding gram negative/anaerobic IV abx coverage pending surgical cultures & continue to encourage aggressive PO hydration. Will consult ID for abx recs since patient now has a PICC line in place. - Blood Cxs NTD @ 72 hours at midnight. - Will continue tylenol PRN for fever. Anesthesia ordered a Dilaudid pump for pain control. Will consider de-escalating today w/ transition to a PO pain regimen that patient can go home on. Will continue DOREEN bowel regimen while on narcotics for pain control. - CM consulted to assist w/ outpatient wound care. WC on board as well. Suspected CKD III - Per chart review eGFR ~60 months prior. Patient endorses h/o chronic heavy NSAID use for DJD. eGFR up to baseline this AM. - Will hold NSAIDS during hospital stay. - Will continue to monitor w/ QD BMPs & dose all meds accordingly w/ eGFR. SVT s/p ablation -stable, not on any meds for this -follows with Dr. Meija HTN -Will hold anitihypertensives since BP continues to run low & continue IVFs. -Asx, stable, will continue to monitor. DJD -Will hold NSAIDS while in hospital due to impaired renal function. VICKY on CPAP: - Encouraged use of home CPAP while in hospital. Sepsis 2/2 R back abscess vs. necrotizing infection: - ruled out as blood cultures NTD. dvt ppx: SCDs, lovenox diet: CC Abx: vancomycin (12/10) GI PPx: none Dispo: Will likely continue IV abx, possibly upon d/c, pending ID recs. D/c pending adequate pain control and antibiotic regimen being established.
[2018-12-13] MEDS: Acetaminophen 325 MG TAB PO PRN (06:49)
[2018-12-13 07:34] LABS: #Basophils 0.1 thou/uL (0.0-0.2); #Eosinphils 0.3 thou/uL (0.0-0.7); #Lymphocytes 2.4 thou/uL (1.20-3.40); #Monocytes 0.8 thou/uL (0.11-0.59); #Neutrophils 6.7 thou/uL (1.40-6.50); %Basophils 0.5 % (0.0-1.0); %Eosinophils 2.8 % (0.0-10.0); %Lymphocytes 23.4 % (21.0-51.0); %Neutrophils 65.3 % (42.0-75.0); Hemoglobin 9.7 g/dL (12.0-16.0); Mean Corpuscular HGB CONC 31.5 g/dL (32.0-36.0); Mean Corpuscular Hemoglobin 27.9 pg (27.0-31.0); Mean Corpuscular Volume 88.4 fL (78.0-98.0); Mean Platelet Volume 7.8 fL (7.4-10.4); Platelet Count 335 thou/uL (130-400); RBC Distribution Width 14.9 % (11.5-14.5); Red Blood Cell (RBC) Count 3.47 mill/uL (4.20-5.40); White Blood Cell (WBC) Count 10.3 thou/uL (4.8-10.8)
[2018-12-13 07:39] LABS: Anion Gap 12 mmol/L (10-20); BUN (Urea Nitrogen) 13 mg/dL (9.8-20.1); Calc. Creatinine Clearance 135 mL/min (70-130); Calcium 9.3 mg/dL (7.8-10.44); Carbon Dioxide 25 mmol/L (22-29); Chloride 107 mmol/L (98-107); Estimated GFR-MDRD 67; Glucose 94 mg/dL (70-105); Potassium 4.4 mmol/L (3.5-5.1); Sodium 140 mmol/L (136-145)
[2018-12-13] MEDS ORDERED: diphenhydrAMINE 50 MG/ML VIAL IVP SCH (09:00)
[2018-12-13] MEDS ORDERED: Metoclopramide HCl 10 MG/2 ML VIAL IVP SCH (09:00)
[2018-12-13] MEDS ORDERED: Amlodipine 10 MG TAB PO SCH (09:00)
[2018-12-13] MEDS: Montelukast Sodium 10 mg Tablet PO SCH (09:46)
[2018-12-13] MEDS: Multivit, Therapeutic 1 TAB PO SCH (09:46)
[2018-12-13] MEDS: Docusate 100 MG CAP PO SCH ×2 (09:47→21:55)
[2018-12-13] MEDS: Vancomycin HCl 1.25 GM in Sodium Chloride 0.9% 250 ML 250 ML IVPB SCH ×2 (09:47→21:55)
[2018-12-13] MEDS: Aspirin Chewable 81 MG TAB PO SCH (09:47)
[2018-12-13] MEDS: Enoxaparin Sodium 40 MG/0.4 ML SYRINGE SC SCH ×2 (09:47→21:55)
[2018-12-13] MEDS: Baclofen 10 MG TAB PO SCH ×2 (09:47→21:55)
[2018-12-13] MEDS: Polyethylene Glycol 3350 17 GM Packet PO SCH (09:47)
[2018-12-13] MEDS ORDERED: Clindamycin/D5W 900 MG in Premix Bag 1 BAG IVPB SCH (14:00)
[2018-12-13] MEDS ORDERED: Clindamycin/D5W 600 MG in Premix Bag 1 BAG IVPB SCH (14:00)
--- NOTE | 2018-12-13 14:34 | PDOC.GSPN ---
Surgery Progress Note: Subj - Subjective Narrative: Pain with vac change but otherwise controlled Surgery Progress Note: Obj - Vital signs Vital signs: Vital Signs - Most Recent Temp Pulse Resp BP Pulse Ox 98.4 F 87 22 H 127/81 95 12/13/18 11:37 12/13/18 11:37 12/13/18 11:37 12/13/18 11:37 12/13/18 11:37 - Physical Exam General: no distress Cardiovascular: regular rate and rhythm Respiratory: clear to auscultation Wound: other (Wound seen on dressing changes. No residual purulence or necrosis.) Surgery Progress Note: Results - Labs Result Diagrams: 12/13/18 07:11 12/13/18 07:11 Lab results: Laboratory Results - last 24 hr 12/13/18 12/13/18 07:11 07:11 WBC 10.3 RBC 3.47 L Hgb 9.7 L Hct 30.7 L MCV 88.4 MCH 27.9 MCHC 31.5 L RDW 14.9 H Plt Count 335 MPV 7.8 Neutrophils % 65.3 Lymphocytes % 23.4 Monocytes % 8.0 Eosinophils % 2.8 Basophils % 0.5 Neutrophils # 6.7 H Lymphocytes # 2.4 Monocytes # 0.8 H Eosinophils # 0.3 Basophils # 0.1 Sodium 140 Potassium 4.4 Chloride 107 Carbon Dioxide 25 Anion Gap 12 BUN 13 Creatinine 1.02 Estimated GFR (MDRD) 67 Glucose 94 Calcium 9.3 - Radiology Interpretation Chest x-ray Status: image reviewed by me, report reviewed by me (no acute cardiopulmonary processes) Surgery Progress Note: A/P - Problem (1) Abscess of back Current Visit: Yes Code(s): L02.212 - CUTANEOUS ABSCESS OF BACK [ANY PART, EXCEPT BUTTOCK] Status: Acute - Plan Plan: Home after vac change on Monday. -Home wound vac pending
--- NOTE | 2018-12-13 17:14 | PRG ---
DATE OF SERVICE: 12/13/2018 SUBJECTIVE: Reta Cueto is doing well. She looks better every day. Her anaerobic cultures are still pending. OBJECTIVE: VITAL SIGNS: She is afebrile. Heart rate is 87, respiratory rate 22, oximetry is 95% on a cannula, 92% to 93% on room air. When I was in the room, blood pressure 127/81. LUNGS: Clear. HEART: Regular rhythm. ABDOMEN: Soft. LABORATORY DATA: White count 10.3, hemoglobin 9.7, platelets 335. IMPRESSION: Multi organism necrotizing fasciitis status post debridement, on broad antimicrobial coverage at this time. Awaiting final cultures. She will continue with wound VAC. Antimicrobials will be adjusted depending on cultures. We will sign off. Job ID: [id number]
--- NOTE | 2018-12-13 19:04 | PRG ---
DATE OF SERVICE: Ms. Cueto continues to look and feel well. She has been afebrile now for almost 48 hours. Her blood pressure is normal. Her white count has dropped to 10,300 with a hemoglobin of 9.7. We will continue to follow. Job ID: [id number]
--- NOTE | 2018-12-13 20:00 | CON ---
DATE OF CONSULTATION: 12/13/2018 REASON FOR CONSULTATION: Abscess, back area. HISTORY OF PRESENT ILLNESS: A 58-year-old patient, who has a history of obesity and hypertension, admitted with new onset of pain and inflammatory changes in right back region. She developed a fever and chills and went to the emergency room, where she had a limited debridement there about 30 mL of purulent exudate removed. Dr. Sidhu completed a surgical debridement on December 11 and the area was prepped. Four counter incisions were made and skin was removed into a large cavity, full of purulent material, some necrotic fat underneath debrided as well. The wound would track medially towards the right breast region and all this area of tunneling was opened. The patient has been receiving clindamycin and vancomycin. She is improving steadily. No headaches, visual symptoms, sore throat, odynophagia, or dysphagia. No dyspnea, cough, or sputum production. No chest pain outside the area of involvement. No abdominal pain or diarrhea. No genitourinary symptoms. She is voiding normally. PAST MEDICAL HISTORY: Hypertension and obesity. She has had mammoplasty in the past, osteoarthritis, vaginal hysterectomy, left knee arthroscopy, right knee arthroscopy, plantar fascia release, tympanoplasty, and abdominoplasty. SOCIAL HISTORY: She works as a nurse in the OR. Never smoker. . Drinks occasionally. ALLERGIES: PENICILLINS WITH MOSTLY RASHES. CURRENT MEDICATIONS: 1. P.r.n. medications. 2. DuoNeb. 3. Singulair. 4. Zofran. 6. Vancomycin. PHYSICAL EXAMINATION: VITAL SIGNS: T-max 100.9, she is currently afebrile. Blood pressure 120/80, pulse 87, respirations 20 to 22, and O2 saturation 93% to 95% on 2 L nasal cannula. GENERAL: The patient has a PICC line in left upper extremity inserted yesterday I believe. She has a peripheral IV access. No Monzon catheter. HEENT: Ocular movements conjugate. Oral cavity normal. Teeth in good shape. NECK: Supple. No jugular vein distention. LUNGS: Symmetric. Clear breath sounds. She has a quite long area of negative pressure dressing right side of the back region extending towards the anterolateral mammary region. ABDOMEN: Soft. Not distended or tender. No ascites. No bladder distention. No joint inflammatory activity. EXTREMITIES: She moves extremities equally. Cognitive function appears to be intact. LABORATORY DATA: White cell count is down from 22,000 to 10,000, hemoglobin 9.7 , platelets 335 with normal differential at this time. Chemistry shows improvement in GFR from 58 to 67. Sodium 140 and creatinine 1.02. Liver profile was within normal limits. Lactic acid 1.3, albumin 3.6, globulin 4.0. Vancomycin trough is 18.3. Microbiology with methicillin-resistant Staph aureus susceptible to clindamycin, doxycycline, linezolid, and rifampin. Vancomycin ALEXEY was 0.5. IMAGING STUDIES: There is a chest x-ray as well, which did not show any acute abnormality. ASSESSMENT: Skin and soft tissue abscess/carbuncle due to methicillin-resistant Staphylococcus aureus right back soft tissue region, status post surgical debridement with steady improvement. Once she is ready for discharge, then we will transition to the outpatient setting. Continuation of IV therapy with either vancomycin or daptomycin for another 7 to 10 days maybe 14 days. There has been no evidence of bacteremia detected during admission, although, the cultures are still at 48 hours incubation. After completion of the IV therapy phase, we will discuss with her the decolonization options to prevent recrudescence of this problem. Job ID: [id number] [facility] MED[facility] CENTERLeonardo
[2018-12-13 20:50] LABS: Vancomycin, Trough 17.2 ug/mL
--- NOTE | 2018-12-14 06:28 | PDOC.FM ---
- Subjective Subjective: Patient states her pain is still being well-controlled with her SALES [employer]ENT[employer] pump. Denies any fever/chills, N/V/D, chest pain, or SOB today. Did endorse some nausea yesterday and says she only ate once 2/2 this. However, feels much better today. - Objective MAR Reviewed: Yes Vital Signs & Weight: Vital Signs (12 hours) Temp Pulse Resp BP Pulse Ox 12/14/18 04:00 97.9 F 82 18 121/73 95 12/14/18 00:00 97.9 F 85 20 111/72 94 L 12/13/18 20:00 98.7 F 82 18 130/78 93 L Weight Weight 142.428 kg I&O: 12/12/18 12/13/18 12/14/18 06:59 06:59 06:59 Intake Total 2500 1200 1416 Balance 2500 1200 1416 Result Diagrams: 12/13/18 07:11 12/13/18 07:11 Phys Exam - Physical Examination Constitutional: NAD HEENT: moist MMs Neck: supple, full ROM Respiratory: no wheezing, no rales, no rhonchi, clear to auscultation bilateral Cardiovascular: RRR, no significant murmur Gastrointestinal: soft, positive bowel sounds Musculoskeletal: no edema Neurological: non-focal, moves all 4 limbs Psychiatric: normal affect, A&O x 3 Skin: normal turgor, cap refill <2 seconds Deviation from normal: wound vac in place over right mid-back wound, intact w/ tight seal Dx/Plan (1) Cellulitis Code(s): L03.90 - CELLULITIS, UNSPECIFIED Status: Acute Qualifiers: Site of cellulitis: trunk Site of cellulitis of trunk: back Qualified Code(s): L03.312 - Cellulitis of back [any part except buttock] (2) Leukocytosis Code(s): D72.829 - ELEVATED WHITE BLOOD CELL COUNT, UNSPECIFIED Status: Acute (3) LILIA (acute kidney injury) Code(s): N17.9 - ACUTE KIDNEY FAILURE, UNSPECIFIED Status: Ruled-out (4) CKD (chronic kidney disease) Code(s): N18.9 - CHRONIC KIDNEY DISEASE, UNSPECIFIED Status: Acute (5) Sepsis Code(s): A41.9 - SEPSIS, UNSPECIFIED ORGANISM Status: Ruled-out (6) HTN (hypertension) Code(s): I10 - ESSENTIAL (PRIMARY) HYPERTENSION Status: Chronic Qualifiers: Hypertension type: essential hypertension Qualified Code(s): I10 - Essential (primary) hypertension (7) Obesity Code(s): E66.9 - OBESITY, UNSPECIFIED Status: Chronic Qualifiers: Body mass index: BMI 40.0-44.9 (8) Osteoarthritis Code(s): M19.90 - UNSPECIFIED OSTEOARTHRITIS, UNSPECIFIED SITE Status: Acute (9) Paroxysmal SVT (supraventricular tachycardia) Code(s): I47.1 - SUPRAVENTRICULAR TACHYCARDIA Status: Chronic (10) VICKY on CPAP Code(s): G47.33 - OBSTRUCTIVE SLEEP APNEA (ADULT) (PEDIATRIC); Z99.89 - DEPENDENCE ON OTHER ENABLING MACHINES AND DEVICES Status: Acute - Plan Plan: Purulent cellulitis vs. necrotizing infection of right lower back, improving - Patient has been afebrile for the past 72 hours and HD stable for the last 2 days. WBC continues to improve. WNLs at 10.5 yesterday. Repeat pending for today. - Post-op day #3 s/p surgical I&D by Dr. Sidhu. - Blood Cxs NTD. Anaerobic wound cultures still pending but are + for MRSA so far. - ID, Dr. Narayanan consulted yesterday and recommended IV vancomycin vs. daptomycin for an additional 7-14 days on outpatient basis. PICC line placed 2 days ago. CM consulted to assist patient with setting up outpatient infusions. - Will continue tylenol PRN for fever. Spoke w/ anesthesia yesterday about d/c Dilaudid pump for pain control w/ transition to a PO pain regimen that patient can go home on. Will continue DOREEN bowel regimen while on narcotics for pain control. - CM also consulted to assist w/ outpatient wound care. WC on board as well. Suspected CKD III - Per chart review eGFR ~60 months prior. Patient endorses h/o chronic heavy NSAID use for DJD. eGFR up to baseline this AM. - Will hold NSAIDS during hospital stay. - Will continue to monitor w/ QD BMPs & dose all meds accordingly w/ eGFR. HTN - Will resume home meds as tolerated by patient since BP in now WNLs & occasionally elevated. - Will continue to monitor. DJD -Will hold NSAIDS while in hospital due to impaired renal function. VICKY on CPAP: - Encouraged use of home CPAP while in hospital. SVT s/p ablation - stable, not on any meds for this - follows with Dr. Mejia Sepsis 11/17 R back abscess vs. necrotizing infection: - ruled out as blood cultures NTD. dvt ppx: SCDs, lovenox diet: CC Abx: vancomycin (12/10) GI PPx: none Dispo: Anticipate d/c on 12/15 once home WC & outpatient IV abx are set up per general surgery.
[2018-12-14] MEDS: Montelukast Sodium 10 mg Tablet PO SCH (09:26)
[2018-12-14] MEDS: Baclofen 10 MG TAB PO SCH ×2 (09:36→21:55)
[2018-12-14] MEDS: Docusate 100 MG CAP PO SCH ×2 (09:37→21:54)
[2018-12-14] MEDS: Amlodipine 10 MG TAB PO SCH (09:37)
[2018-12-14] MEDS: Aspirin Chewable 81 MG TAB PO SCH (09:37)
[2018-12-14] MEDS: Multivit, Therapeutic 1 TAB PO SCH (09:38)
[2018-12-14] MEDS: Enoxaparin Sodium 40 MG/0.4 ML SYRINGE SC SCH ×2 (09:40→21:54)
[2018-12-14] MEDS: Vancomycin HCl 1.25 GM in Sodium Chloride 0.9% 250 ML 250 ML IVPB SCH ×2 (09:40→21:54)
[2018-12-14] MEDS: Polyethylene Glycol 3350 17 GM Packet PO SCH (09:41)
[2018-12-14 10:08] LABS: #Basophils 0.1 thou/uL (0.0-0.2); #Eosinphils 0.3 thou/uL (0.0-0.7); #Lymphocytes 2.4 thou/uL (1.20-3.40); #Monocytes 0.8 thou/uL (0.11-0.59); #Neutrophils 6.9 thou/uL (1.40-6.50); %Eosinophils 3.2 % (0.0-10.0); %Lymphocytes 22.5 % (21.0-51.0); %Monocytes 7.7 % (0.0-10.0); %Neutrophils 65.6 % (42.0-75.0); Hemoglobin 9.9 g/dL (12.0-16.0); Mean Corpuscular HGB CONC 30.9 g/dL (32.0-36.0); Mean Corpuscular Hemoglobin 28.2 pg (27.0-31.0); Mean Corpuscular Volume 91.3 fL (78.0-98.0); Mean Platelet Volume 7.5 fL (7.4-10.4); Platelet Count 366 thou/uL (130-400); RBC Distribution Width 14.7 % (11.5-14.5); Red Blood Cell (RBC) Count 3.52 mill/uL (4.20-5.40); White Blood Cell (WBC) Count 10.6 thou/uL (4.8-10.8)
[2018-12-14 10:31] LABS: Anion Gap 10 mmol/L (10-20); BUN (Urea Nitrogen) 10 mg/dL (9.8-20.1); Calc. Creatinine Clearance 150 mL/min (70-130); Calcium 9.3 mg/dL (7.8-10.44); Carbon Dioxide 26 mmol/L (22-29); Chloride 109 mmol/L (98-107); Estimated GFR-MDRD 76; Glucose 86 mg/dL (70-105); Potassium 4.3 mmol/L (3.5-5.1); Sodium 141 mmol/L (136-145)
[2018-12-14] MEDS ORDERED: Sterile Water 10 ML VIAL FS SCH (10:47)
[2018-12-14] MEDS ORDERED: Activase 2 MG VIAL CATH SCH (10:47)
--- NOTE | 2018-12-14 11:33 | PRG ---
DATE OF SERVICE: 12/14/2018 SUBJECTIVE: Ms. Cueto is awake, happy, alert this morning. She is feeling much better. Her white count has dropped to 10,600, and she is afebrile. We anticipate she will likely be discharged tomorrow to continue approximately 5 to 7 more days of IV antibiotics. Job ID: [id number]
[2018-12-14] MEDS ORDERED: HYDROcodone/Acetaminophen 10/325 mg Tablet PO PRN ×2 (12:24)
[2018-12-14] MEDS ORDERED: Fentanyl 100 MCG/2 ML VIAL SLOW IVP PRN (12:24)
[2018-12-14] MEDS ORDERED: Fentanyl 100 MCG/2 ML VIAL SLOW IVP SCH (12:30)
[2018-12-14] MEDS ORDERED: traMADol HCl 50 MG TAB PO PRN ×2 (13:24)
--- NOTE | 2018-12-14 13:34 | PRG ---
DATE OF SERVICE: 12/14/2018 SUBJECTIVE: Ms. Cueto is doing well. Dr. Narayanan is recommended IV antibiotics after discharge. Minimal pain today. The DRYER FEEDER has been discontinued. Wound VAC is in place. ASSESSMENT: Necrotizing wound VAC status post incision and drainage. Needs to go home with wound VAC to facilitate faster wound healing. PLAN: Likely home this weekend. Dr. Young around for me p.r.n. I have sent a prescription for tramadol over to her pharmacy, [facility]. Job ID: [id number]
--- NOTE | 2018-12-15 06:27 | PDOC.FM ---
- Subjective Subjective: Patient states she feels well this AM. Denies any fever/chills, N/V/D or constipation. Also denies any chest pain or SOB. - Objective MAR Reviewed: Yes Vital Signs & Weight: Vital Signs (12 hours) Temp Pulse Resp BP Pulse Ox 12/14/18 20:00 93 L 12/14/18 18:36 98.7 F 91 16 121/80 93 L Weight Weight 142.428 kg I&O: 12/13/18 12/14/18 12/15/18 06:59 06:59 06:59 Intake Total 1200 1416 800 Balance 1200 1416 800 Result Diagrams: 12/15/18 07:13 12/15/18 07:13 Phys Exam - Physical Examination Constitutional: NAD HEENT: moist MMs Neck: supple, full ROM Respiratory: no wheezing, no rales, no rhonchi, clear to auscultation bilateral Cardiovascular: RRR, no significant murmur Gastrointestinal: positive bowel sounds Neurological: non-focal, moves all 4 limbs Psychiatric: normal affect, A&O x 3 Skin: no rash Deviation from normal: wound vac over R mid-back wound w/ good seal Dx/Plan (1) Cellulitis Code(s): L03.90 - CELLULITIS, UNSPECIFIED Status: Acute Qualifiers: Site of cellulitis: trunk Site of cellulitis of trunk: back Qualified Code(s): L03.312 - Cellulitis of back [any part except buttock] (2) Leukocytosis Code(s): D72.829 - ELEVATED WHITE BLOOD CELL COUNT, UNSPECIFIED Status: Acute (3) LILIA (acute kidney injury) Code(s): N17.9 - ACUTE KIDNEY FAILURE, UNSPECIFIED Status: Ruled-out (4) CKD (chronic kidney disease) Code(s): N18.9 - CHRONIC KIDNEY DISEASE, UNSPECIFIED Status: Acute (5) Sepsis Code(s): A41.9 - SEPSIS, UNSPECIFIED ORGANISM Status: Ruled-out (6) HTN (hypertension) Code(s): I10 - ESSENTIAL (PRIMARY) HYPERTENSION Status: Chronic Qualifiers: Hypertension type: essential hypertension Qualified Code(s): I10 - Essential (primary) hypertension (7) Obesity Code(s): E66.9 - OBESITY, UNSPECIFIED Status: Chronic Qualifiers: Body mass index: BMI 40.0-44.9 (8) Osteoarthritis Code(s): M19.90 - UNSPECIFIED OSTEOARTHRITIS, UNSPECIFIED SITE Status: Acute (9) Paroxysmal SVT (supraventricular tachycardia) Code(s): I47.1 - SUPRAVENTRICULAR TACHYCARDIA Status: Chronic (10) VICKY on CPAP Code(s): G47.33 - OBSTRUCTIVE SLEEP APNEA (ADULT) (PEDIATRIC); Z99.89 - DEPENDENCE ON OTHER ENABLING MACHINES AND DEVICES Status: Acute - Plan Plan: Purulent cellulitis w/ necrotizing infection of right lower back, improving - Patient has been afebrile since 12/12 and remains HD stable. WBC stable & WNLs. Repeat pending for today. - Post-op day #4 s/p surgical I&D w/ Dr. Sidhu. - Blood Cxs NTD. Anaerobic wound cultures still pending but other Cxs are + for MRSA so far. - Will continue IV vancomycin or an additional 7-14 days following d/c per ID recs. PICC line in place & infusions set up w/ Dr. Narayanan's office yesterday. However, patient cannot start outpatient infusions there until Monday, 12/17. - Will continue PRN [place] and tramadol per anesthesia for pain control as want ot avoid NSAIDS 2/2 mild renal dysfunction. - Outpatient WC also set up yesterday. WC to change wound vac dressing today and again on Monday. Suspected CKD III - Per chart review eGFR ~60 months prior. Patient endorses h/o chronic heavy NSAID use for DJD. Cr slightly elevated this AM at 1.11 but eGFR within baseline range. - Will continue to hold NSAIDS during hospital stay & recommend patient not take NSAIDS regularly upon d/c. - Will continue to monitor w/ QD BMPs & dose all meds accordingly w/ eGFR. HTN - Will resume home meds as tolerated by patient since BP in now WNLs & occasionally elevated. - Will continue to monitor. DJD -Will hold NSAIDS while in hospital due to impaired renal function. VICKY on CPAP: - Encouraged use of home CPAP while in hospital. SVT s/p ablation - stable, not on any meds for this - follows with Dr. Mejia Sepsis 2/ R back abscess vs. necrotizing infection: - ruled out as blood cultures NTD. dvt ppx: SCDs, lovenox diet: CC Abx: vancomycin (12/10) GI PPx: none Dispo: Anticipate d/c on 12/18 as patient will be unable to start outpatient antibiotic infusions until then. Addendum - Attending - Attending Attestation Date/Time: 12/15/18 0483 I personally evaluated the patient and discussed the management with Dr. Figueroa. I agree with the History, Examination, Assessment and Plan documented above with any addition or exceptions noted below. Patient is doing well. There were no documented fevers overnight. IV antibiotics and wound vac has been set up but cannot start until 12/17/18.
[2018-12-15 07:27] LABS: #Basophils 0.1 thou/uL (0.0-0.2); #Eosinphils 0.3 thou/uL (0.0-0.7); #Lymphocytes 2.3 thou/uL (1.20-3.40); #Monocytes 0.7 thou/uL (0.11-0.59); #Neutrophils 6.2 thou/uL (1.40-6.50); %Basophils 0.9 % (0.0-1.0); %Eosinophils 2.9 % (0.0-10.0); %Lymphocytes 23.7 % (21.0-51.0); %Monocytes 7.5 % (0.0-10.0); %Neutrophils 65.1 % (42.0-75.0); Hemoglobin 9.4 g/dL (12.0-16.0); Mean Corpuscular HGB CONC 31.7 g/dL (32.0-36.0); Mean Corpuscular Hemoglobin 28.8 pg (27.0-31.0); Mean Platelet Volume 7.3 fL (7.4-10.4); Platelet Count 365 thou/uL (130-400); RBC Distribution Width 14.5 % (11.5-14.5); Red Blood Cell (RBC) Count 3.27 mill/uL (4.20-5.40); White Blood Cell (WBC) Count 9.6 thou/uL (4.8-10.8)
[2018-12-15 07:47] LABS: Anion Gap 11 mmol/L (10-20); BUN (Urea Nitrogen) 11 mg/dL (9.8-20.1); Calc. Creatinine Clearance 124 mL/min (70-130); Calcium 9.2 mg/dL (7.8-10.44); Carbon Dioxide 25 mmol/L (22-29); Chloride 108 mmol/L (98-107); Estimated GFR-MDRD 61; Glucose 92 mg/dL (70-105); Sodium 140 mmol/L (136-145)
[2018-12-15] MEDS: Enoxaparin Sodium 40 MG/0.4 ML SYRINGE SC SCH ×2 (08:07→21:32)
[2018-12-15] MEDS: Acetaminophen 325 MG TAB PO PRN (08:07)
[2018-12-15] MEDS: Montelukast Sodium 10 mg Tablet PO SCH (08:08)
[2018-12-15] MEDS: Baclofen 10 MG TAB PO SCH ×2 (08:09→21:31)
[2018-12-15] MEDS: Aspirin Chewable 81 MG TAB PO SCH (08:09)
[2018-12-15] MEDS: Amlodipine 10 MG TAB PO SCH (08:09)
[2018-12-15] MEDS: Docusate 100 MG CAP PO SCH ×2 (08:10→21:31)
[2018-12-15] MEDS: Multivit, Therapeutic 1 TAB PO SCH (08:10)
[2018-12-15] MEDS: Polyethylene Glycol 3350 17 GM Packet PO SCH (08:11)
[2018-12-15] MEDS: Vancomycin HCl 1.25 GM in Sodium Chloride 0.9% 250 ML 250 ML IVPB SCH ×2 (08:22→21:31)
[2018-12-15] MEDS ORDERED: Polyethylene Glycol 3350 17 GM Packet PO PRN (08:33)
[2018-12-15] MEDS ORDERED: Sterile Water 10 ML VIAL IVP SCH (12:21)
[2018-12-15] MEDS ORDERED: Activase 2 MG VIAL CATH SCH (12:21)
--- NOTE | 2018-12-15 18:04 | PRG ---
DATE OF SERVICE: 12/15/2018 SUBJECTIVE: Feeling better. Sitting up by the bedside. Minimal pain. Able to ambulate. No respiratory symptoms or abdominal pain. No diarrhea. OBJECTIVE: VITAL SIGNS: Normal. She is afebrile for the past few days. LUNGS: Clear. HEART: S1 and S2. Regular rate. SKIN: Right-sided negative pressure dressing in place. PICC line inserted. LABORATORY DATA: White cell count 9.6, hemoglobin 9.4, platelets 365. Creatinine 1.12, GFR 61. Microbiology with MRSA. Vancomycin trough 17.2. ASSESSMENT AND DISCUSSION: Skin and soft tissue abscess, carbuncle with methicillin-resistant Staphylococcus aureus, status post debridements. The patient to be discharged, I believe Monday on IV daptomycin in the outpatient setting. Job ID: [id number]
--- NOTE | 2018-12-16 05:49 | PDOC.FM ---
- Subjective Subjective: Patient reports that her pain is still well-controlled on PO meds. Denies any chest pain, SOB, fever/chills, N/V/D. Denies any headache. - Objective MAR Reviewed: Yes Vital Signs & Weight: Vital Signs (12 hours) Temp Pulse Resp BP Pulse Ox 12/15/18 23:36 99.1 F 12/15/18 19:44 99.1 F 84 18 115/72 94 L 12/15/18 19:42 94 L Weight Weight 142.428 kg I&O: 12/14/18 12/15/18 12/16/18 06:59 06:59 06:59 Intake Total 1416 800 Balance 1416 800 Result Diagrams: 12/16/18 06:48 12/16/18 06:48 Phys Exam - Physical Examination Constitutional: NAD HEENT: moist MMs Neck: supple, full ROM Respiratory: no wheezing, no rales, no rhonchi, clear to auscultation bilateral Cardiovascular: RRR, no significant murmur Gastrointestinal: soft, positive bowel sounds Neurological: non-focal, moves all 4 limbs Psychiatric: normal affect, A&O x 3 Skin: no rash, normal turgor Deviation from normal: wound vac in place over R mid-back wound w/ tight seal Dx/Plan (1) Cellulitis Code(s): L03.90 - CELLULITIS, UNSPECIFIED Status: Acute Qualifiers: Site of cellulitis: trunk Site of cellulitis of trunk: back Qualified Code(s): L03.312 - Cellulitis of back [any part except buttock] (2) Leukocytosis Code(s): D72.829 - ELEVATED WHITE BLOOD CELL COUNT, UNSPECIFIED Status: Acute (3) CKD (chronic kidney disease) Code(s): N18.9 - CHRONIC KIDNEY DISEASE, UNSPECIFIED Status: Acute (4) HTN (hypertension) Code(s): I10 - ESSENTIAL (PRIMARY) HYPERTENSION Status: Chronic Qualifiers: Hypertension type: essential hypertension Qualified Code(s): I10 - Essential (primary) hypertension (5) Obesity Code(s): E66.9 - OBESITY, UNSPECIFIED Status: Chronic Qualifiers: Body mass index: BMI 40.0-44.9 (6) Osteoarthritis Code(s): M19.90 - UNSPECIFIED OSTEOARTHRITIS, UNSPECIFIED SITE Status: Acute (7) Paroxysmal SVT (supraventricular tachycardia) Code(s): I47.1 - SUPRAVENTRICULAR TACHYCARDIA Status: Chronic (8) VICKY on CPAP Code(s): G47.33 - OBSTRUCTIVE SLEEP APNEA (ADULT) (PEDIATRIC); Z99.89 - DEPENDENCE ON OTHER ENABLING MACHINES AND DEVICES Status: Acute - Plan Plan: Purulent cellulitis w/ necrotizing infection of right lower back, improving - Patient has been afebrile since 12/12 and remains HD stable. WBC stable & WNLs. Repeat pending for today. - Post-op day #5 s/p surgical I&D w/ Dr. Sidhu. - Blood Cxs & anaerobic wound cultures negative. Wound Cxs are + for MRSA only. - Will continue IV vancomycin or an additional 7-14 days following d/c per ID recs. PICC line in place & Daptomycin infusions set up through Dr. Narayanan's office to begin on Monday, 12/17. - Will continue PRN [place] and tramadol per anesthesia for pain control as want to avoid NSAIDS 2/2 mild renal dysfunction. - Outpatient WC also set up yesterday. WC to change wound vac to home wound vac on Monday. Suspected CKD III - Per chart review eGFR ~60 months prior. Patient endorses h/o chronic heavy NSAID use for DJD. Cr slightly elevated yesterday at 1.11 but eGFR within baseline range. - Will continue to hold NSAIDS during hospital stay & recommend patient not take NSAIDS regularly upon d/c. - Will continue to monitor w/ QD BMPs & dose all meds accordingly w/ eGFR. HTN - Will resume home meds as tolerated by patient since BP in now WNLs & occasionally elevated. - Will continue to monitor. DJD -Will hold NSAIDS while in hospital due to impaired renal function. VICKY on CPAP: - Encouraged use of home CPAP while in hospital. SVT s/p ablation - stable, not on any meds for this - follows with Dr. Mejia Sepsis 2/2 R back abscess vs. necrotizing infection: - ruled out as blood cultures NTD. dvt ppx: SCDs, lovenox diet: CC Abx: vancomycin (12/10) GI PPx: none Dispo: Anticipate d/c on 12/17 as patient will be unable to start outpatient antibiotic infusions until then. Addendum - Attending - Attending Attestation Date/Time: 12/16/18 8188 I personally evaluated the patient and discussed the management with Dr. Figueroa. I agree with the History, Examination, Assessment and Plan documented above with any addition or exceptions noted below. the patient is doing well. She will d/c on 12/17. She will get her wound vac replaced prior to leaving and has appt with Dr. Narayanan for outpt antibiotics.
[2018-12-16 07:40] LABS: #Eosinphils 0.2 thou/uL (0.0-0.7); #Lymphocytes 2.6 thou/uL (1.20-3.40); #Monocytes 0.8 thou/uL (0.11-0.59); #Neutrophils 7.4 thou/uL (1.40-6.50); %Basophils 0.3 % (0.0-1.0); %Eosinophils 2.1 % (0.0-10.0); %Lymphocytes 23.4 % (21.0-51.0); %Monocytes 7.2 % (0.0-10.0); Hemoglobin 10.2 g/dL (12.0-16.0); Mean Corpuscular HGB CONC 32.1 g/dL (32.0-36.0); Mean Corpuscular Hemoglobin 28.2 pg (27.0-31.0); Mean Corpuscular Volume 87.8 fL (78.0-98.0); Mean Platelet Volume 7.8 fL (7.4-10.4); Platelet Count 424 thou/uL (130-400); RBC Distribution Width 14.7 % (11.5-14.5); Red Blood Cell (RBC) Count 3.61 mill/uL (4.20-5.40)
[2018-12-16 08:08] LABS: Anion Gap 14 mmol/L (10-20); BUN (Urea Nitrogen) 11 mg/dL (9.8-20.1); Calc. Creatinine Clearance 114 mL/min (70-130); Calcium 9.8 mg/dL (7.8-10.44); Carbon Dioxide 26 mmol/L (22-29); Chloride 106 mmol/L (98-107); Estimated GFR-MDRD 55; Glucose 93 mg/dL (70-105); Potassium 3.7 mmol/L (3.5-5.1); Sodium 142 mmol/L (136-145)
[2018-12-16] MEDS: Vancomycin HCl 1.25 GM in Sodium Chloride 0.9% 250 ML 250 ML IVPB SCH ×2 (08:49→22:26)
[2018-12-16] MEDS: Baclofen 10 MG TAB PO SCH ×2 (08:50→20:12)
[2018-12-16] MEDS: Aspirin Chewable 81 MG TAB PO SCH (08:50)
[2018-12-16] MEDS: Montelukast Sodium 10 mg Tablet PO SCH (08:50)
[2018-12-16] MEDS: Multivit, Therapeutic 1 TAB PO SCH (08:51)
[2018-12-16] MEDS: Amlodipine 10 MG TAB PO SCH (08:51)
[2018-12-16] MEDS: Enoxaparin Sodium 40 MG/0.4 ML SYRINGE SC SCH ×2 (08:51→20:12)
[2018-12-16] MEDS: Docusate 100 MG CAP PO SCH ×2 (08:51→20:12)
[2018-12-16] MEDS: Acetaminophen 325 MG TAB PO PRN (16:49)
[2018-12-16 20:45] LABS: Vancomycin, Trough 27.5 ug/mL
--- NOTE | 2018-12-17 06:50 | PDOC.FM ---
- Subjective Subjective: Patient states she feels well this AM. Is ready to go home. Denies any fever/ chills, N/V/D, chest pain, or SOB. Says pain has been well-controlled on PO pain meds. - Objective MAR Reviewed: Yes Vital Signs & Weight: Vital Signs (12 hours) Temp Pulse Resp BP Pulse Ox 12/16/18 19:44 98.9 F 75 18 129/77 95 12/16/18 19:41 95 Weight Weight 142.428 kg I&O: 12/15/18 12/16/18 12/17/18 06:59 06:59 06:59 Intake Total 800 790 720 Balance 800 790 720 Result Diagrams: 12/16/18 06:48 12/16/18 06:48 Phys Exam - Physical Examination Constitutional: NAD HEENT: moist MMs Neck: supple, full ROM Respiratory: no wheezing, no rales, no rhonchi, clear to auscultation bilateral Cardiovascular: RRR, no significant murmur Gastrointestinal: soft, positive bowel sounds Neurological: non-focal, moves all 4 limbs Psychiatric: normal affect, A&O x 3 Skin: no rash, normal turgor Deviation from normal: wound vac in place over R mid back wound w/ tight seal Dx/Plan (1) Cellulitis Code(s): L03.90 - CELLULITIS, UNSPECIFIED Status: Acute Qualifiers: Site of cellulitis: trunk Site of cellulitis of trunk: back Qualified Code(s): L03.312 - Cellulitis of back [any part except buttock] (2) Leukocytosis Code(s): D72.829 - ELEVATED WHITE BLOOD CELL COUNT, UNSPECIFIED Status: Acute (3) CKD (chronic kidney disease) Code(s): N18.9 - CHRONIC KIDNEY DISEASE, UNSPECIFIED Status: Acute (4) HTN (hypertension) Code(s): I10 - ESSENTIAL (PRIMARY) HYPERTENSION Status: Chronic Qualifiers: Hypertension type: essential hypertension Qualified Code(s): I10 - Essential (primary) hypertension (5) Obesity Code(s): E66.9 - OBESITY, UNSPECIFIED Status: Chronic Qualifiers: Body mass index: BMI 40.0-44.9 (6) Osteoarthritis Code(s): M19.90 - UNSPECIFIED OSTEOARTHRITIS, UNSPECIFIED SITE Status: Acute (7) Paroxysmal SVT (supraventricular tachycardia) Code(s): I47.1 - SUPRAVENTRICULAR TACHYCARDIA Status: Chronic (8) VICKY on CPAP Code(s): G47.33 - OBSTRUCTIVE SLEEP APNEA (ADULT) (PEDIATRIC); Z99.89 - DEPENDENCE ON OTHER ENABLING MACHINES AND DEVICES Status: Acute - Plan Plan: Purulent cellulitis w/ necrotizing infection of right lower back, improving - Patient has been afebrile since 12/12 and remains HD stable. WBC stable & WNLs. Repeat pending for today. - Post-op day #6 s/p surgical I&D w/ Dr. Sidhu. - Blood Cxs NTD. Anaerobic wound cultures still pending but other Cxs are + for MRSA so far. - Will continue IV vancomycin or an additional 7-14 days following d/c per ID recs. PICC line in place & infusions set up w/ Dr. Narayanan's office. Patient to start outpatient infusions today upon discharge. - Will continue PRN [place] and tramadol per anesthesia for pain control as want to avoid NSAIDS 2/2 mild renal dysfunction. - Outpatient WC also approved. WC to connect home wound vac up before d/c this AM. LILIA on suspected CKD III - Per chart review eGFR ~60 months prior. Patient endorses h/o chronic heavy NSAID use for DJD. Cr slightly elevated yesterday AM at 1.15 but eGFR within baseline range. Likely 2/2 vancomycin as trough yesterday evening was slightly above therapeutic range for skin infections. Adjusted by pharmacy but patient to start on daptomycin today. - Will recommend patient not take NSAIDS regularly upon d/c. HTN - Will resume home meds as tolerated by patient since BP in now WNLs & occasionally elevated. - Will continue to monitor. DJD -Will hold NSAIDS while in hospital due to impaired renal function. VICKY on CPAP: - Encouraged use of home CPAP while in hospital. SVT s/p ablation - stable, not on any meds for this - follows with Dr. Mejia Sepsis 2/2 R back abscess vs. necrotizing infection: - ruled out as blood cultures NTD. dvt ppx: SCDs, lovenox diet: CC Abx: vancomycin (12/10) GI PPx: none Dispo: Discharge this AM following home wound vac placement to start outpatient antibiotic infusions with Dr. Narayanan. Addendum - Attending - Attending Attestation Date/Time: 12/17/18 1854 I personally evaluated the patient and discussed the management with Dr. Figueroa. I agree with the History, Examination, Assessment and Plan documented above with any addition or exceptions noted below. The patient was seen this morning prior to discharge. She has wound vac placed. Will d/c to make appt with Dr. Narayanan.
[2018-12-17] MEDS: Baclofen 10 MG TAB PO SCH (08:12)
[2018-12-17] MEDS: Docusate 100 MG CAP PO SCH (08:12)
[2018-12-17] MEDS: Amlodipine 10 MG TAB PO SCH (08:12)
[2018-12-17] MEDS: Aspirin Chewable 81 MG TAB PO SCH (08:12)
[2018-12-17] MEDS: Montelukast Sodium 10 mg Tablet PO SCH (08:13)
[2018-12-17] MEDS: Enoxaparin Sodium 40 MG/0.4 ML SYRINGE SC SCH (08:13)
[2018-12-17] MEDS: Multivit, Therapeutic 1 TAB PO SCH (08:13)
[2018-12-17 08:35] VITALS: BP 131/84; TEMP 98.6
[2018-12-17] MEDS ORDERED: Vancomycin HCl 1 GM in Premix Bag 1 BAG IVPB SCH (10:00)
--- NOTE | 2018-12-17 21:51 | DIS ---
DATE OF ADMISSION: 12/10/2018 DATE OF DISCHARGE: 12/17/2018 RESIDENT: Radha Figueroa MD ADMITTING ATTENDING: Fatmata Whitehead MD DISCHARGE ATTENDING: Cyndi Belle MD CONSULTS: 1. General Surgery, Dr. Pawan Sidhu. 2. Anesthesiology. 3. Infectious Disease, Dutch Narayanan MD. PROCEDURES: 1. Chest x-ray on 12/10/2018, which showed no acute cardiopulmonary abnormalities. 2. Ultrasound of soft-tissue trunk for abscess or cyst on 12/10/2018, which showed very extensive infiltration in the subcutaneous fat along the back on the right side with no drainable fluid collection. Findings suggestive of cellulitis. 3. Debridement of skin and subcutaneous tissue, incision and drainage of necrotizing infection to the back subcutaneous tissues on 12/11/2018. 4. Left upper extremity PICC line placement with ultrasound guidance on 12/12/2018. PRIMARY DIAGNOSES: 1. Necrotizing skin infection. 2. Acute kidney injury on suspected chronic kidney disease stage 3, secondary to chronic NSAID use. 3. Leukocytosis. SECONDARY DIAGNOSES: 1. Hypertension. 2. Paroxysmal supraventricular tachycardia. 3. Osteoarthritis. 4. Obesity. 5. Asthma. 6. Obstructive sleep apnea, on CPAP. DISCHARGE MEDICATIONS: 1. Premarin 1.25 p.o. daily. 2. Vitamin D3 of 5000 units p.o. daily. 3. Multivitamin one p.o. daily. 4. Aspirin 81 mg daily. 5. Lasix 40 mg p.o. daily p.r.n. 6. Singulair 10 mg p.o. daily. 7. Breo one puff inhaled daily. 8. Baclofen 10 mg p.o. b.i.d. 9. Tramadol 200 mg p.o. every 6 hours p.r.n. for pain. 10. Acetaminophen 650 mg p.o. every 4 hours p.r.n. for pain. 11. Colace 100 mg p.o. b.i.d. 12. MiraLAX 17 g p.o. daily p.r.n. for constipation for 14 doses. 13. Daptomycin 4 mg/kg IV every 24 hours per ID recommendations. 14. Norvasc 10 mg p.o. daily. 15. Losartan potassium 25 mg p.o. daily. DISCONTINUED MEDICATIONS: 1. Diclofenac sodium/misoprostol one tab p.o. b.i.d. 2. Meloxicam 7.5 mg p.o. b.i.d. HOSPITAL COURSE: The patient is a 58-year-old obese -Russian female with a past medical history significant for hypertension, who presented to the emergency department with a chief complaint of right lower back abscess. The patient reports that the abscess began as a pimple only 2 days prior to presentation and continued to increase in size with associated increase in pain, redness, and erythema. Eventually, the patient developed subjective fevers, chills with some associated nausea and presented to the emergency department for further evaluation. On presentation to the ED, the patient was noted to be tachycardic with a heart rate of 102 and febrile with a temperature of 101.4 taken orally. She reported her pain to be 10/10 in severity but her blood pressure, O2 sats, and respirations were within normal limits. Routine blood work including CBC, CMP, lactate and procalcitonin were obtained, which were significant for elevated white blood count 22.8 with 81% neutrophils and only 6 bands, lactate of 1.3, and procalcitonin of 0.16, making our suspicion for sepsis less convincing. Of note, the patient also had an elevated creatinine of 1.11 with an estimated GFR of 61. However, on chart review, the patient's GFR was noted to be similar several months prior to admission. An I and D was therefore performed in the emergency department and Kirk drain was left in place to allow for continued draining. The patient was started on IV vancomycin and Rocephin and was given 50 mg of Toradol, 4 mg of morphine, 1 mg of Versed, 4 mg of Zofran, and 30 mL/kg bolus of normal saline before being transferred to the floor for continued IV antibiotic treatment. 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 IV fluids were also continued and due to reported persistent pain, fevers, tachycardia and low normal blood pressures, ultrasound of the right back was obtained to rule out any remaining pus that would likely require surgical consult for ID x2. A right back ultrasound was therefore obtained, which did not show any drainable fluid collection, but did show cellulitis with infiltration into the fat. It was therefore decided to continue IV antibiotics for an additional day with close observation of vitals before consulting General Surgery. However, the patient consulted General Surgery, Dr. Pawan Sidhu later that day, who decided to take the patient back to the operating room the afternoon of 12/11/2018 for an I and D, and possible debridement. Upon surgical intervention, Dr. Sidhu noted the patient did indeed have a necrotizing skin infection that required significant tissue debridement in addition to further incision and drainage and therefore, requested that a wound VAC to be placed postoperatively to promote faster wound healing. Interventional Radiology was also consulted to place a PICC line as the patient would likely need IV antibiotics as an outpatient following discharge. The patient was continued on IV antibiotics with cefepime and vancomycin for the next several days, pending wound cultures obtained during surgery. However, by approximately day 4 of the patient's hospital stay, the initial wound cultures obtained upon I and D in the ER resulted as positive for MRSA. Therefore, the patient's IV antibiotics were deescalated to IV vancomycin only, which was continued for the remainder of her hospital stay. On 12/13/2018, Infectious Disease, Dr. Dutch Narayanan was consulted to come and evaluate the patient for recommendations for an outpatient antibiotic regimen upon discharge. Dr. Narayanan recommended either IV vancomycin or daptomycin for a minimum of 7 days upon discharge, which he requested to be set up through his office. Case Management was therefore consulted to assist the patient with setting up an approval for an outpatient wound VAC, as well as IV antibiotic infusions. Of note, once approved for outpatient infusions with Dr. Narayanan, it was noted that the patient's infusions could not begin until 12/17/2018; therefore, the patient was closely monitored over the course of the weekend and continued to receive b.i.d. IV vancomycin for the treatment of skin infection. By the date of discharge, the patient has had remained hemodynamically stable for the last several days as well as afebrile and her pain was well controlled on a p.o. pain regimen. Regarding her lab abnormalities, the patient's white blood cell count had downtrended to 11 by the date of discharge. In addition, her renal function remained within her baseline range with a creatinine of 1.21 and EGFR 55 upon discharge. Her creatinine and EGFR were most likely slightly worse than on admission secondary to her IV vancomycin infusions as her vancomycin trough on 12/16/2018 was noted to be slightly elevated at 27.5. The patient's dosing was adjusted; however, the patient was scheduled to receive IV daptomycin upon discharge with Dr. Narayanan with close followup of her renal function. In addition, it was noted that the patient had been on chronic NSAIDs for her severe degenerative joint disease for many years and therefore had acute kidney injury superimposed on estimated chronic kidney disease stage 3 upon chart review and her history. It was therefore recommended that the patient avoid taking regularly scheduled NSAIDs upon discharge to avoid further impairment in her renal function. Lastly, hemoglobin A1c was obtained during the patient's hospital stay and was noted to be within the prediabetic range of 5.7. The patient was therefore counseled on following an appropriate diabetic diet in order to avoid progressing to diabetes mellitus type 2. The patient endorsed understanding. DISPOSITION: Stable. DISCHARGE INSTRUCTIONS: 1. Location: Home. 2. Diet: Heart healthy diet, consistent carb diet. 3. Activity: As tolerated. No restrictions. 4. Followup: The patient was instructed to follow up with Dutch Narayanan' office immediately upon discharge for her first scheduled IV outpatient antibiotic infusion. In addition, the patient was instructed to follow up with Dr. Pawan Sidhu within 10 days of discharge as well as her primary care physician, Dr. Shahab Gilliland within 1 week of discharge. Job ID: [id number]
--- NOTE | 2018-12-22 21:35 | EKG ---
Test Reason : Blood Pressure : / mmHG Vent. Rate : 111 BPM Atrial Rate : 111 BPM P-R Int : 144 ms QRS Dur : 074 ms QT Int : 324 ms P-R-T Axes : 056 008 031 degrees QTc Int : 440 ms Sinus tachycardia Possible Left atrial enlargement Borderline ECG Confirmed by AMADOR NAYAK ([id number]), newspaper photo editor LORETTA GHOTRA ([id number]) on 12/22/2018 9:34:29 PM Referred By: Confirmed By:AMADOR NAYAK
== END 2018-12-17 08:58 | disposition home or self-care (01) | DRG 264 ==
LOC: ERS 00:01 → T4-A 03:05
PROVIDERS: ADMIT Family Medicine; ATTEND Family Medicine
PROC: 0W9L0ZZ Drainage of Lower Back, Open Approach (ICD-10-PCS; 2018-12-10)
PROC: 0JB70ZZ Excision of Back Subcutaneous Tissue and Fascia, Open Approach (ICD-10-PCS; principal; 2018-12-11)
PROC: 02HV33Z Insertion of Infusion Device into Superior Vena Cava, Percutaneous Approach (ICD-10-PCS; 2018-12-12)
DX: I96 Gangrene, not elsewhere classified (principal); L03.312 Cellulitis of back [any part except buttock and flank]; N17.9 Acute kidney failure, unspecified; Z68.41 Body mass index [BMI] 40.0-44.9, adult; N18.3 Chronic kidney disease, stage 3 (moderate); I10 Essential (primary) hypertension; E66.9 Obesity, unspecified; M19.90 Unspecified osteoarthritis, unspecified site; J45.909 Unspecified asthma, uncomplicated; G47.33 Obstructive sleep apnea (adult) (pediatric); B95.62 Methicillin resistant Staphylococcus aureus infection as the cause of diseases classified elsewhere; T39.395A Adverse effect of other nonsteroidal anti-inflammatory drugs [NSAID], initial encounter; Z99.89 Dependence on other enabling machines and devices; Z88.0 Allergy status to penicillin; Z79.82 Long term (current) use of aspirin; Z79.899 Other long term (current) drug therapy
CPT/HCPCS: 10061; 36415; 36569; 71045; 76705; 80048; 80053; 80202; 83036; 83605; 84145; 85025; 87040; 87070; 87077; 87186; 87205; 93005; 94640; 96365; 96366; 96368; 96375; A4216; J0131; J0692; J0696; J1170; J1200; J1644; J1650; J1885; J2001; J2250; J2270; J2405; J2704; J2765; J2997; J3010; J3370; J7050; J7620

== ENCOUNTER 2018-12-21 09:41 | Outpatient (CLI) | payer OTHER ==
[2018-12-21] MEDS ORDERED: Sodium Chloride 0.9% 15 ML NEB ONE (12:00)
== END 2018-12-21 09:42 | disposition home or self-care (01) ==
LOC: WCC 09:41
PROVIDERS: ATTEND Family Medicine
DX: T81.89XD Other complications of procedures, not elsewhere classified, subsequent encounter (principal)
CPT/HCPCS: 97606; A4218

== ENCOUNTER 2018-12-24 14:46 | Outpatient (CLI) | payer OTHER ==
[2018-12-24] MEDS ORDERED: Sodium Chloride 0.9% 15 ML NEB ONE (17:51)
== END 2018-12-24 14:47 | disposition home or self-care (01) ==
LOC: WCC 14:46
PROVIDERS: ATTEND Family Medicine
DX: T81.89XD Other complications of procedures, not elsewhere classified, subsequent encounter (principal)
CPT/HCPCS: 97605; A4218

== ENCOUNTER 2018-12-26 15:56 | Observation (INO) | payer OTHER ==
[2018-12-26 16:50] VITALS: BMI 44.6
--- NOTE | 2018-12-26 19:35 | PDOC.FPRHP ---
- History of Present Illness Chief Complaint: cramping in upper ext History of Present Illness: 58 yo female sent from specialist office today for evaluation of muscle pain. Originally noted in arms on Monday. Blood work noted rhabdo. Patient reports constant crampy pain in arms. Worse with function or activity. Notes edema/ swelling to arms. Patient reports recent history of daptomycin use which appears to be the culprit. She has been on antibiotics due to right sided back abscess complicated by sepsis and necrotizing fascitis. Patient was taken back for surgery with Dr. Sidhu and currently has a wound vac in place. Patient has been on antibiotics for the past week and a half. Denies fever, chills, NVD , chest pain, palpitations, abdominal pain, LE cramps or swelling. ED Course: direct admit - Allergies/Adverse Reactions Allergies Allergy/AdvReac Type Severity Reaction Status Date / Time Penicillins Allergy Verified 12/26/18 16:52 - Home Medications Medication Instructions Recorded Confirmed Type Aspirin Chewable [Aspirin Chewable 81 mg PO DAILY 12/22/16 12/26/18 History Tablet] Cholecalciferol (Vitamin D3) 5,000 unit PO DAILY 12/22/16 12/26/18 History [Vitamin D3] Estrogens, Conjugated [Premarin] 1.25 mg PO DAILY 12/22/16 12/26/18 History Multivitamin [Daily Multiple 1 each PO DAILY 12/22/16 12/26/18 History Vitamin] Furosemide [Lasix] 40 mg PO DAILY PRN 07/19/17 12/26/18 History Baclofen 10 mg PO BID 12/10/18 12/26/18 History Fluticasone/Vilanterol [Breo 1 puff INH DAILY 12/10/18 12/26/18 History Ellipta 200-25 Mcg INH] Montelukast Sodium [Singulair] 10 mg PO DAILY 12/10/18 12/26/18 History traMADol HCl [Tramadol HCl ER] 200 mg PO Q6HR PRN 12/10/18 12/26/18 History Acetaminophen [Tylenol Regular 650 mg PO Q4H PRN tab 12/17/18 12/26/18 Rx Strength] Amlodipine [Norvasc] 10 mg PO DAILY #30 tab 12/17/18 12/26/18 Rx DAPTOmycin [Daptomycin] 4 mg/kg IV Q24H #14 vial 12/17/18 12/26/18 Rx Docusate [Colace] 100 mg PO BID #30 cap 12/17/18 12/26/18 Rx Losartan Potassium 25 mg PO DAILY #30 tablet 12/17/18 12/26/18 Rx Polyethylene Glycol 3350 [Miralax] 17 gm PO DAILY PRN #14 pk 12/17/18 12/26/18 Rx Cholecalciferol (Vitamin D3) 5,000 unit PO DAILY 12/26/18 12/26/18 History [Vitamin D3] Diclofenac Sodium/Misoprostol 1 tablet PO BID 12/26/18 12/26/18 History [Arthrotec] Montelukast Sodium [Singulair] 10 mg PO DAILY 12/26/18 12/26/18 History - History PMHx: Pre-diabetes, HTN, CKD 3, OA, VICKY. Mild intermittent asthma, seasonal allergies PSHx: Extensive I&D and washout for abscess/nec fas, Bilateral knee scope, hysterectomy, bilateral breast augmentation, tummy tuck, Plantar fascial release , left templanoplasty, tonsils and adenoids FHx: Mother: CAD, HF, HTN, HLD, DM Social: Denies T/A/D use Allergies: Penicillin - rash, SOB - Review of Systems General: denies: fever/chills, night sweats, fatigue ENT: denies: nasal congestion, rhinorrhea Respiratory: denies: cough, congestion, shortness of breath, exercise intolerance Cardiovascular: denies: chest pain, palpitation, edema Gastrointestinal: denies: nausea, vomiting, diarrhea, constipation, abdominal pain Genitourinary: denies: dysuria Musculoskeletal: reports: swelling (in upper extremities) Neurological: reports: weakness (inupper extremities) - Vital signs BP: 140/83 HR: 95 RR: 18 Tmax: 98.6 Pox: 95% on RA Wt: 141kg - Physical Exam Constitutional: NAD, awake, alert and oriented HEENT: normocephalic and atraumatic, PERRLA, EOMI, normal nasal mucosa, MMM Neck: supple, FROM, trachea midline Chest: no-tender to palpation, no lesions Heart: RRR, normal S1/S2, no murmurs/rubs/gallops, pulses present Lungs: CTAB, no respiratory distress, good air movement, no rales/rhonchi, no wheezing, no retractions Abdomen: soft, non-tender, bowel sounds present, no masses/distention, no hernias Musculoskeletal: normal structure, normal tone, ROM grossly normal -Musculoskeletal: minimal swelling in bilateral upper extremities, no erythema noted, TTP of bilateral upper extremities Neurological: no focal deficit Skin: no rash/lesions, good turgor, capillary refill <2 seconds Psychiatric: normal mood and affect FMR H&P: Results - Labs Result Diagrams: 12/27/18 06:41 12/27/18 06:41 FMR H&P: A/P - Problem List (1) Rhabdomyolysis Current Visit: Yes Status: Acute Code(s): M62.82 - RHABDOMYOLYSIS (2) Abscess of back Current Visit: No Status: Acute Code(s): L02.212 - CUTANEOUS ABSCESS OF BACK [ANY PART, EXCEPT BUTTOCK] (3) Asthma Current Visit: No Status: Chronic Code(s): J45.909 - UNSPECIFIED ASTHMA, UNCOMPLICATED (4) CKD (chronic kidney disease) Current Visit: No Status: Chronic Code(s): N18.9 - CHRONIC KIDNEY DISEASE, UNSPECIFIED Qualifiers: Chronic kidney disease stage: stage 2 (mild) Qualified Code(s): N18.2 - Chronic kidney disease, stage 2 (mild) (5) VICKY on CPAP Current Visit: No Status: Chronic Code(s): G47.33 - OBSTRUCTIVE SLEEP APNEA (ADULT) (PEDIATRIC); Z99.89 - DEPENDENCE ON OTHER ENABLING MACHINES AND DEVICES (6) HTN (hypertension) Current Visit: No Status: Chronic Code(s): I10 - ESSENTIAL (PRIMARY) HYPERTENSION Qualifiers: Hypertension type: essential hypertension Qualified Code(s): I10 - Essential (primary) hypertension (7) Obesity Current Visit: No Status: Chronic Code(s): E66.9 - OBESITY, UNSPECIFIED Qualifiers: Body mass index: BMI 40.0-44.9 - Plan Rhabdomyolysis No records sent over from clinic with lab values, but patient describes bilateral upper extremity crampy pain. Dr. Narayanan gave check out that patient had lab values indicating rhabdo. Likely due to daptomycin. - LFTs elevated which is to be expected in rhabdo, CK > [address] - will trend CMP and CK in the AM - Will give LR bolus and start on IVF - Will obtain bilateral upper extremity US doppler due to swelling Hx of back abscess - Wound vac currently in place, following up with Dr. Sidhu next week - No longer on abx for infection - Will consult wound care VICKY on CPAP - Continue home CPAP at night; Order placed to get patient CPAP for tonight as she did not bring machine from home - monitor VS HTN - aware, continue home meds Asthma - aware, continue home meds, in no acute resp distress and satting well at this time. No wheezing on exam. CKD stage 2-3 - GFR between 50-60s - no LILIA DISPO: admit to medical obs Diet: CC DVT ppx: heparin Case discussed with Dr. Ha FMKrystal H&P: Upper Level - Pertinent history 58F direct admitted by Dr. Narayanan for rhabdomyolysis, 3 days. She had been on 2 week of daptomycin for necrotizing fascititis. She begin having upper extmeties bilateral pain, described as crampy, constant and worsening. Associated with edema in arm. She followed up with Dr. Narayanan today who felt it was rhabdo. - Pertinent findings No lab work available. Gen: Alert, oriented, cheerful Derm: Right lumbar back, wound vac in place, s/p debridement Ext: Upper arm tender to palpation - Plan Date/Time: 12/26/181930 1. Rhabdomyolysis - Plan, obtain CK, CMP, CBC. Will start patient on LR. - Due to complaint of UE swelling and pain, will obtain doppler to rule out clots. 2. Necrotizing Fascitiis - Currently has wound vac on. Will consult wound care while patient is here. She is to follow up with vicki as outpatient. See internet sales consultant note for patient's chronic problems. I, [Zen Palmer], have evaluated this patient and agree with findings/plan as outlined by internet sales consultant resident. Pertinent changes/additions are listed here. Addendum - Attending - Attending Attestation Date/Time: 12/26/182148 I personally evaluated the patient and discussed the management with Dr. Mckeon and Dr. Palmer I agree with the History, Examination, Assessment and Plan documented above with any addition or exceptions noted below. 58 yo female with multiple medical conditions including recent nec fas and CKD II directly admitted from Dr. Narayanan for rhabo caused by daptomycin. Place in obs. Start IVF hydration. Trend labs. Treat pain as needed. Encourage movement of upper extremities. Consult PT as needed. Consider compression sleeves. Consider UE US to rule out complications such as VTE. If edema progresses will have to monitor for compartment syndrome. Reed
[2018-12-26] MEDS ORDERED: Ondansetron PF 4 MG/2 ML Vial IVP PRN (20:15)
[2018-12-26] MEDS ORDERED: Ondansetron ODT 4 MG TAB PO PRN (20:15)
[2018-12-26] MEDS: Lactated Ringer's 1,000 ML IV SCH (20:39)
[2018-12-26] MEDS ORDERED: Lactated Ringer's 500 ML IV SCH (21:00)
[2018-12-26 21:20] LABS: ALT (SGPT) 85 U/L (8-55); AST (SGOT) 259 U/L (5-34); Albumin 3.4 g/dL (3.5-5.0); Alkaline Phosphatase 88 U/L (40-150); Anion Gap 11 mmol/L (10-20); BUN (Urea Nitrogen) 16 mg/dL (9.8-20.1); Bilirubin, Total Less than 0.2 mg/dL (0.2-1.2); Calc. Creatinine Clearance 129 mL/min (70-130); Calcium 9.2 mg/dL (7.8-10.44); Carbon Dioxide 27 mmol/L (22-29); Chloride 105 mmol/L (98-107); Estimated GFR-MDRD 64; Globulin 3.2 g/dL (2.4-3.5); Glucose 96 mg/dL (70-105); Potassium 3.9 mmol/L (3.5-5.1); Protein, Total 6.6 g/dL (6.0-8.3); Sodium 139 mmol/L (136-145)
[2018-12-26] MEDS: Heparin 5,000 UNITS/ML VIAL SC SCH (21:24)
[2018-12-26 21:58] LABS: CK (CPK) 13144 U/L (29-168)
[2018-12-27] MEDS: Lactated Ringer's 1,000 ML IV SCH ×5 (00:12→21:28)
--- NOTE | 2018-12-27 05:50 | PDOC.FM ---
- Subjective Subjective: Reports no pain in her arms or legs this morning. Eating and drinking well. No other complaints. - Objective Vital Signs & Weight: Vital Signs (12 hours) Temp Pulse Resp BP BP Pulse Ox 12/27/18 00:25 98 F 86 16 115/75 94 L 12/26/18 20:00 98.1 F 87 18 151/90 H 95 Weight Weight 141.067 kg I&O: 12/25/18 12/26/18 12/27/18 06:59 06:59 06:59 Intake Total 2168 Balance 2168 Result Diagrams: 12/27/18 06:41 12/27/18 06:41 Phys Exam - Physical Examination Constitutional: NAD Respiratory: no wheezing, clear to auscultation bilateral Cardiovascular: RRR, no significant murmur Gastrointestinal: soft, non-tender, no distention, positive bowel sounds Musculoskeletal: no edema, pulses present Neurological: moves all 4 limbs Psychiatric: normal affect Skin: no rash, normal turgor, cap refill <2 seconds Dx/Plan (1) Rhabdomyolysis Code(s): M62.82 - RHABDOMYOLYSIS Status: Acute (2) Abscess of back Code(s): L02.212 - CUTANEOUS ABSCESS OF BACK [ANY PART, EXCEPT BUTTOCK] Status : Acute (3) Asthma Code(s): J45.909 - UNSPECIFIED ASTHMA, UNCOMPLICATED Status: Chronic (4) CKD (chronic kidney disease) Code(s): N18.9 - CHRONIC KIDNEY DISEASE, UNSPECIFIED Status: Chronic Qualifiers: Chronic kidney disease stage: stage 2 (mild) Qualified Code(s): N18.2 - Chronic kidney disease, stage 2 (mild) (5) VICKY on CPAP Code(s): G47.33 - OBSTRUCTIVE SLEEP APNEA (ADULT) (PEDIATRIC); Z99.89 - DEPENDENCE ON OTHER ENABLING MACHINES AND DEVICES Status: Chronic (6) HTN (hypertension) Code(s): I10 - ESSENTIAL (PRIMARY) HYPERTENSION Status: Chronic Qualifiers: Hypertension type: essential hypertension Qualified Code(s): I10 - Essential (primary) hypertension (7) Obesity Code(s): E66.9 - OBESITY, UNSPECIFIED Status: Chronic Qualifiers: Body mass index: BMI 40.0-44.9 (8) Anemia Code(s): D64.9 - ANEMIA, UNSPECIFIED Status: Acute - Plan Plan: Rhabdomyolysis Bilateral upper extremity crampy pain. Direct admit from Dr. Narayanan. Likely due to daptomycin. - LFTs elevated which is to be expected in rhabdo - CK > 13,000, improved to 11,000 - Renal function excellent - LR bolus then IVF @ 200 ml/hr - BUE Dopplers: read pending Hx of back abscess - Wound vac currently in place, following up with Dr. Sidhu next week - No longer on abx for infection - Wound care consulted Anemia -Iron studies, folate and B12 pening VICKY on CPAP - Continue home CPAP at night - monitor VS HTN - aware, continue home meds Asthma - aware, continue home meds, in no acute resp distress and satting well at this time. No wheezing on exam. CKD stage 2-3 - GFR between 50-60s - no LILIA DISPO: admit to medical obs Diet: CC DVT ppx: heparin Case discussed with Dr. Ha
[2018-12-27] MEDS: Mometasone/Formoterol 120 PUFF INHALER INH SCH ×2 (06:41→18:58)
[2018-12-27 07:25] LABS: #Basophils 0.1 thou/uL (0.0-0.2); #Eosinphils 0.2 thou/uL (0.0-0.7); #Lymphocytes 2.8 thou/uL (1.20-3.40); #Monocytes 0.7 thou/uL (0.11-0.59); #Neutrophils 5.8 thou/uL (1.40-6.50); %Basophils 0.5 % (0.0-1.0); %Eosinophils 1.8 % (0.0-10.0); %Lymphocytes 29.8 % (21.0-51.0); %Monocytes 6.9 % (0.0-10.0); %Neutrophils 60.9 % (42.0-75.0); Hemoglobin 9.8 g/dL (12.0-16.0); Mean Corpuscular HGB CONC 32.6 g/dL (32.0-36.0); Mean Corpuscular Hemoglobin 28.9 pg (27.0-31.0); Mean Corpuscular Volume 88.6 fL (78.0-98.0); Mean Platelet Volume 7.6 fL (7.4-10.4); Platelet Count 411 thou/uL (130-400); RBC Distribution Width 14.8 % (11.5-14.5); White Blood Cell (WBC) Count 9.5 thou/uL (4.8-10.8)
[2018-12-27 07:31] LABS: Anion Gap 12 mmol/L (10-20); BUN (Urea Nitrogen) 14 mg/dL (9.8-20.1); Calc. Creatinine Clearance 153 mL/min (70-130); Calcium 9.2 mg/dL (7.8-10.44); Carbon Dioxide 25 mmol/L (22-29); Chloride 105 mmol/L (98-107); Estimated GFR-MDRD 79; Glucose 95 mg/dL (70-105); Potassium 3.7 mmol/L (3.5-5.1); Sodium 138 mmol/L (136-145)
[2018-12-27 07:56] LABS: CK (CPK) 11102 U/L (29-168)
[2018-12-27] MEDS ORDERED: Enoxaparin Sodium 40 MG/0.4 ML SYRINGE SC SCH (09:00)
[2018-12-27] MEDS: Aspirin Chewable 81 MG TAB PO SCH (09:08)
[2018-12-27] MEDS: Baclofen 10 MG TAB PO SCH ×2 (09:08→20:07)
[2018-12-27] MEDS: Montelukast Sodium 10 mg Tablet PO SCH (09:08)
[2018-12-27] MEDS: Losartan 25 MG TAB PO SCH (09:08)
[2018-12-27] MEDS: Amlodipine 5 MG TAB PO SCH (09:08)
[2018-12-27] MEDS: Multivitamin W/ Minerals 1 TAB PO SCH (09:09)
[2018-12-27] MEDS: Heparin 5,000 UNITS/ML VIAL SC SCH ×3 (09:10→20:07)
[2018-12-27 09:53] LABS: Reticulocyte Count 2.1 % (0.5-1.5)
--- NOTE | 2018-12-27 10:07 | ULT ---
ULTRASOUND DOPPLER DUPLEX VENOUS BILATERAL UPPER EXTREMITIES: 12/27/2018 HISTORY: A 58-year-old female with bilateral upper extremity edema. TECHNIQUE: Rodriguez-scale, color-flow, and spectral analysis of the major veins of the bilateral upper extremities. Compression and release applied to all veins except for the subclavian veins. FINDINGS: The bilateral internal jugular, subclavian, axillary, brachial, basilic, ulnar, radial, and cephalic veins are patent and clear, with no evidence of thrombosis. IMPRESSION: Negative. No deep venous thrombosis of the bilateral upper extremities. POS: [facility]
[2018-12-27 10:25] LABS: Iron 43 ug/dL (50-170); Iron Binding Capacity, Total 330 mcg/dL (265-497)
--- NOTE | 2018-12-27 12:06 | PRG ---
DATE OF SERVICE: 12/27/2018 SUBJECTIVE: Ms. Cueto is a pleasant 58-year-old black female patient who has been treated with daptomycin for MRSA of back abscess. She developed rhabdomyolysis secondary to this medication and has been admitted for treatment. She had presented to her Infectious Disease doctor with some muscle pain and found to have a CPK level in excess of 8000. Upon presentation to our facility, she was noticed to have a CPK level of 13,000 and this morning it has dropped to 11,000. We will continue with vigorous fluid administration of at least 200 mL/hour for the next 24 hours and reassess her CPK daily. Her renal function is normal with a BUN of 14, creatinine 0.89 and GFR of 79. Job ID: [id number]
[2018-12-28] MEDS ORDERED: Acetaminophen 325 MG TAB PO PRN (02:41)
[2018-12-28] MEDS: Lactated Ringer's 1,000 ML IV SCH ×2 (02:45→08:09)
--- NOTE | 2018-12-28 06:53 | PDOC.FM ---
- Subjective Subjective: Patient feels well this morning. No SOB, chest pain, or arm pain. States she has been voiding frequently. - Objective Vital Signs & Weight: Vital Signs (12 hours) Temp Pulse Resp BP Pulse Ox 12/28/18 05:42 98 F 79 21 H 116/68 93 L 12/28/18 00:00 98.3 F 89 92 H 111/75 95 12/27/18 19:36 98.0 F 87 18 128/76 93 L 12/27/18 18:58 80 12 96 Weight Weight 141.067 kg I&O: 12/26/18 12/27/18 12/28/18 06:59 06:59 06:59 Intake Total 3671 4125 Output Total 1100 3400 Balance 2571 725 Result Diagrams: 12/27/18 06:41 12/28/18 06:18 Phys Exam - Physical Examination Constitutional: NAD Respiratory: no wheezing, no rales Cardiovascular: RRR, no significant murmur Gastrointestinal: soft, non-tender, no distention Musculoskeletal: no edema, pulses present Dx/Plan (1) Rhabdomyolysis Code(s): M62.82 - RHABDOMYOLYSIS Status: Acute (2) Abscess of back Code(s): L02.212 - CUTANEOUS ABSCESS OF BACK [ANY PART, EXCEPT BUTTOCK] Status : Acute (3) Asthma Code(s): J45.909 - UNSPECIFIED ASTHMA, UNCOMPLICATED Status: Chronic (4) CKD (chronic kidney disease) Code(s): N18.9 - CHRONIC KIDNEY DISEASE, UNSPECIFIED Status: Chronic Qualifiers: Chronic kidney disease stage: stage 2 (mild) Qualified Code(s): N18.2 - Chronic kidney disease, stage 2 (mild) (5) VICKY on CPAP Code(s): G47.33 - OBSTRUCTIVE SLEEP APNEA (ADULT) (PEDIATRIC); Z99.89 - DEPENDENCE ON OTHER ENABLING MACHINES AND DEVICES Status: Chronic (6) HTN (hypertension) Code(s): I10 - ESSENTIAL (PRIMARY) HYPERTENSION Status: Chronic Qualifiers: Hypertension type: essential hypertension Qualified Code(s): I10 - Essential (primary) hypertension (7) Obesity Code(s): E66.9 - OBESITY, UNSPECIFIED Status: Chronic Qualifiers: Body mass index: BMI 40.0-44.9 (8) Anemia Code(s): D64.9 - ANEMIA, UNSPECIFIED Status: Acute - Plan Plan: Rhabdomyolysis Bilateral upper extremity crampy pain. Direct admit from Dr. Narayanan. Likely due to daptomycin. - LFTs elevated which is to be expected in rhabdo - CK > 13,000, improved to 11,000 now to 6,000 - Renal function excellent - BUE Dopplers negative for DVT Hx of back abscess - Wound vac currently in place, following up with Dr. Sidhu next week - No longer on abx for infection - Wound care consulted Anemia -Iron studies, folate and B12 pening VICKY on CPAP - Continue home CPAP at night - monitor VS HTN - aware, continue home meds Asthma - aware, continue home meds, in no acute resp distress and satting well at this time. No wheezing on exam. CKD stage 2-3 - GFR between 50-60s - no LILIA DISPO: discharge to home Diet: CC DVT ppx: heparin Case discussed with Dr. Ha
[2018-12-28 07:12] LABS: Anion Gap 13 mmol/L (10-20); BUN (Urea Nitrogen) 11 mg/dL (9.8-20.1); Calc. Creatinine Clearance 153 mL/min (70-130); Calcium 9.3 mg/dL (7.8-10.44); Carbon Dioxide 26 mmol/L (22-29); Chloride 106 mmol/L (98-107); Estimated GFR-MDRD 79; Glucose 95 mg/dL (70-105); Potassium 4.2 mmol/L (3.5-5.1); Sodium 141 mmol/L (136-145)
[2018-12-28 07:25] LABS: CK (CPK) 6651 U/L (29-168)
[2018-12-28] MEDS: Losartan 25 MG TAB PO SCH (08:12)
[2018-12-28] MEDS: Amlodipine 5 MG TAB PO SCH (08:13)
[2018-12-28] MEDS: Multivitamin W/ Minerals 1 TAB PO SCH (08:13)
[2018-12-28] MEDS: Baclofen 10 MG TAB PO SCH (08:13)
[2018-12-28] MEDS: Montelukast Sodium 10 mg Tablet PO SCH (08:13)
[2018-12-28] MEDS: Heparin 5,000 UNITS/ML VIAL SC SCH (08:13)
[2018-12-28] MEDS: Aspirin Chewable 81 MG TAB PO SCH (08:14)
[2018-12-28 08:16] VITALS: BP 143/80
[2018-12-28 08:33] VITALS: TEMP 97.9
--- NOTE | 2018-12-28 11:32 | PRG ---
DATE OF SERVICE: 12/28/2018 SUBJECTIVE: Ms. Cueto' CPK has dropped to 6600 with a 50% reduction since admission. She is completely asymptomatic. No muscle discomfort. Her renal function has remained normal. She will be discharged today. Job ID: [id number]
[2018-12-28] MEDS: Mometasone/Formoterol 120 PUFF INHALER INH SCH (12:13)
--- NOTE | 2018-12-28 22:49 | DIS ---
DATE OF ADMISSION: 12/26/2018 DATE OF DISCHARGE: 12/28/2018 RESIDENT: Bhavana Augustine MD. ADMITTING ATTENDING: Quinton Renae MD DISCHARGE ATTENDING: Quinton Renae MD CONSULT: None. PROCEDURES: Venogram on 12/27/2018, negative for DVT of the bilateral upper extremities. PRIMARY DIAGNOSIS: Rhabdomyolysis. SECONDARY DIAGNOSES: 1. Back abscess. 2. Anemia. 3. Obstructive sleep apnea, on CPAP. 4. Hypertension. 5. Asthma. 6. Chronic kidney disease stage 2 to 3 without acute kidney injury. DISCHARGE MEDICATIONS: 1. Premarin 1.25 mg p.o. daily. 2. Vitamin D3 5000 units p.o. daily. 3. Multivitamin 1 p.o. daily. 4. Aspirin 81 mg p.o. daily. 5. Lasix 40 mg p.o. daily p.r.n. for edema. 6. Montelukast 10 mg p.o. daily. 7. Breo Ellipta 1 puff inhalation daily. 8. Baclofen 10 mg p.o. b.i.d. 9. Tramadol 200 mg p.o. q.6 hours p.r.n. for pain. 10. Tylenol 650 mg p.o. q.4 hours p.r.n. for pain or fever. 11. Docusate 100 mg p.o. b.i.d. 12. MiraLAX 17 g p.o. daily p.r.n. for constipation. 13. Amlodipine 10 mg p.o. daily. 14. Losartan 25 mg p.o. daily. 15. Diclofenac 1 tablet p.o. b.i.d. 16. Montelukast 10 mg p.o. daily. DISCONTINUE MEDICATIONS: Daptomycin. HISTORY OF PRESENT ILLNESS/HOSPITAL COURSE: This is a 58-year-old female sent from Dr. Narayanan's office today for concerns of rhabdomyolysis and bilateral upper extremity muscle pain. The initial blood work showed rhabdomyolysis. The patient reports constant crampy pain in her arms. The patient has a recent history of a back abscess, for which she finshed a course of daptomycin. She reports her arm pain is worse with function or activity. No edema and swelling to the arm. She has been on antibiotics due to right-sided back abscess complicated by sepsis and necrotizing fasciitis. She was taken back for surgery her last hospitalization by Dr. Sidhu and currently has wound VAC in place. She denies fever, chills, nausea, vomiting, diarrhea, chest pain, palpitations, abdominal pain, lower extremity cramps, or swelling. The patient's initial CK was greater than 13,000 and improved to 6000 with aggressive fluid rehydration. Her renal function remained excellent. Bilateral upper extremity Dopplers were negative for DVT. LFTs were elevated, which was expected as she is in rhabdomyolysis. Her PICC line was removed before discharge as she no longer requires antibiotics for her back abscess. Back abscess. Wound VAC was in place. The patient plans to follow up with Dr. Sidhu next week. Anemia. Iron studies were done, showed iron deficiency anemia. The anemia is mild. The patient is continuing on multivitamin. DISPOSITION: Stable. DISCHARGE INSTRUCTIONS: LOCATION: Home. DIET: Heart healthy, low-sodium. ACTIVITY: As tolerated. FOLLOWUP: Follow up with Dr. Woodard in 7 days at [facility]. Job ID: [id number] [facility]
== END 2018-12-28 11:42 | disposition home or self-care (01) ==
LOC: INTOOBSV 16:36 → T4-B 16:36
PROVIDERS: ADMIT Family Medicine; ATTEND Family Medicine
DX: M62.82 Rhabdomyolysis (principal); G47.33 Obstructive sleep apnea (adult) (pediatric); I12.9 Hypertensive chronic kidney disease with stage 1 through stage 4 chronic kidney disease, or unspecified chronic kidney disease; N18.2 Chronic kidney disease, stage 2 (mild); D63.1 Anemia in chronic kidney disease; L02.212 Cutaneous abscess of back [any part, except buttock and flank]; B95.62 Methicillin resistant Staphylococcus aureus infection as the cause of diseases classified elsewhere; J45.20 Mild intermittent asthma, uncomplicated; Z99.89 Dependence on other enabling machines and devices; Z88.0 Allergy status to penicillin; Z79.82 Long term (current) use of aspirin; Z79.899 Other long term (current) drug therapy
CPT/HCPCS: 36415; 80048; 80053; 82550; 82607; 82728; 82746; 83540; 83550; 85025; 85046; 93970; 96360; 96361; G0378; J1644

== ENCOUNTER 2019-01-01 08:24 | Outpatient (CLI) | payer OTHER ==
[2019-01-01] MEDS ORDERED: Sodium Chloride 0.9% 15 ML NEB ONE (09:00)
== END 2019-01-01 08:25 | disposition home or self-care (01) ==
LOC: WCC 08:24
PROVIDERS: ATTEND Family Medicine
DX: T81.89XD Other complications of procedures, not elsewhere classified, subsequent encounter (principal)
CPT/HCPCS: 97605; A4218

== ENCOUNTER 2019-01-04 08:08 | Outpatient (CLI) | payer OTHER ==
[2019-01-04] MEDS ORDERED: Sodium Chloride 0.9% 15 ML NEB ONE (09:30)
== END 2019-01-04 08:09 | disposition home or self-care (01) ==
LOC: WCC 08:08
PROVIDERS: ATTEND Family Medicine
DX: T81.89XD Other complications of procedures, not elsewhere classified, subsequent encounter (principal)
CPT/HCPCS: 97606; A4218

== ENCOUNTER 2019-01-07 09:06 | Outpatient (CLI) | payer OTHER ==
[2019-01-07] MEDS ORDERED: Sodium Chloride 0.9% 15 ML NEB ONE (18:00)
== END 2019-01-07 09:07 | disposition home or self-care (01) ==
LOC: WCC 09:06
PROVIDERS: ATTEND Family Medicine
DX: T81.89XD Other complications of procedures, not elsewhere classified, subsequent encounter (principal)
CPT/HCPCS: A4218

== ENCOUNTER 2019-01-10 09:18 | Outpatient (CLI) | payer OTHER ==
[~2019-01-10 09:18] MED LIST: Sodium Chloride 0.9% 15 ML NEB ONE
--- NOTE | 2019-01-10 17:56 | HP ---
HISTORY OF PRESENT ILLNESS: Ms. Reta Cueto is a very pleasant 58-year-old, who presents to the Wound Center for evaluation of 2 wounds of the back subsequent to incision, drainage, and debridement of skin and subcutaneous tissue for treatment of a necrotizing infection of the soft tissues of the back. The patient underwent the preceding procedure on 12/11/[address] Pawan Sidhu. Negative pressure therapy was initiated intraoperatively, and upon discharge from [facility], the patient was referred to the Wound Center for assistance with dressing changes of the wound VAC. PAST MEDICAL HISTORY: 1. Hypertension. 2. Osteoarthritis. 3. Asthma. 4. Obstructive sleep apnea. PAST SURGICAL HISTORY: 1. Total vaginal hysterectomy/BSO. 2. Abdominoplasty. 3. Bilateral breast augmentation. 4. Bilateral tubal ligation. 5. Tonsillectomy/adenoidectomy. 6. Left knee arthroscopy. 7. Right knee arthroscopy. 8. Left endoscopic plantar fascia release. 9. Left endoscopic tympanoplasty. 10. Intraoperative debridement of skin and subcutaneous tissues of the back as per HPI. MEDICATIONS: 1. Premarin. 2. Aspirin 81 mg. 3. Norvasc. 4. Losartan. 5. Lasix. 6. Tramadol. 7. Multivitamin. 8. Vitamin D. ALLERGIES: PENICILLIN. SOCIAL HISTORY: Social history is negative for tobacco or EtOH use. FAMILY HISTORY: Family history is significant for diabetes mellitus. The patient's mother and maternal grandmother were both diagnosed with diabetes mellitus. Family history is negative for coronary artery disease. PHYSICAL EXAMINATION: VITAL SIGNS: Temperature 97.9, pulse 88, respirations 21, blood pressure 135/75. GENERAL: A 58-year-old female, sitting on chair in examination room, in no acute distress. HEENT: Normocephalic, atraumatic. NECK: No nuchal rigidity. CHEST: Clear to auscultation. CV: Regular rate and rhythm. ABDOMEN: Soft. EXTREMITIES: No clubbing or cyanosis. NEURO: Grossly nonfocal. BACK: Two wounds of the right back are present, which measure approximately 17.0 x 1.8 cm and 0.9 x 3.0 cm. Granulation tissue is present within the margins of each wound. No purulent drainage is associated with either wound. No erythema of the skin surrounding either wound is present. No maceration of the skin of the periwound of either wound is noted. ASSESSMENT AND PLAN: 1. Two wounds of right back subsequent to incision, drainage, and debridement of skin and subcutaneous tissues for treatment of necrotizing infection of the soft tissues of the back. The patient underwent the preceding procedure on 12/11/[address] Pawan Sidhu. Negative pressure therapy was initiated intraoperatively and upon discharge from [facility], the patient was referred to the Wound Center for assistance with dressing changes of the wound VAC. The wounds were reviewed by Dr. Sidhu today, and negative pressure therapy has been discontinued. The patient has been instructed to perform wet-to-dry dressing changes for both wounds on a daily basis after cleansing and irrigation as per Dr. Sidhu. I will see Ms. Cueto again in 2 to 3 weeks. The patient understands and is in agreement with the preceding treatment plan. 2. Hypertension. 3. Osteoarthritis. 4. Asthma. 5. Obstructive sleep apnea. Job ID: [id number]
== END 2019-01-10 09:19 | disposition home or self-care (01) ==
LOC: WCC 09:18
PROVIDERS: ATTEND Family Medicine
DX: T81.89XD Other complications of procedures, not elsewhere classified, subsequent encounter (principal); I10 Essential (primary) hypertension; M19.90 Unspecified osteoarthritis, unspecified site; J45.909 Unspecified asthma, uncomplicated; G47.33 Obstructive sleep apnea (adult) (pediatric)
CPT/HCPCS: 97602; 99203; A4218; G0463

== ENCOUNTER 2019-09-26 09:38 | Outpatient (CLI) | payer OTHER ==
[2019-09-26 14:15] LABS: #Basophils 0.1 thou/uL (0.0-0.2); #Eosinphils 0.1 thou/uL (0.0-0.7); #Monocytes 0.6 thou/uL (0.11-0.59); #Neutrophils 4.3 thou/uL (1.40-6.50); %Basophils 0.8 % (0.0-1.0); %Eosinophils 1.9 % (0.0-10.0); %Lymphocytes 37.2 % (21.0-51.0); %Monocytes 7.2 % (0.0-10.0); %Neutrophils 52.9 % (42.0-75.0); Hemoglobin 11.3 g/dL (12.0-16.0); Mean Corpuscular Hemoglobin 28.9 pg (27.0-31.0); Mean Corpuscular Volume 87.6 fL (78.0-98.0); Mean Platelet Volume 8.1 fL (7.4-10.4); Platelet Count 401 thou/uL (130-400); RBC Distribution Width 14.4 % (11.5-14.5); Red Blood Cell (RBC) Count 3.91 mill/uL (4.20-5.40); White Blood Cell (WBC) Count 8.1 thou/uL (4.8-10.8)
[2019-09-26 14:48] LABS: Bacteria/HPF None Seen HPF (None Seen); Bilirubin Negative (Negative); Blood, Urine Negative (Negative); Clarity Clear (Clear); Glucose, Urine (Dipstick) Normal (Negative); Leukocyte Negative Leu/uL (Negative); Nitrite Negative (Negative); Protein, Urine (Dipstick) 10 mg/dL (Neg-Trace); RBC/HPF 0-3 HPF (0-3); Urobilinogen Normal mg/dL (Less than 2); WBC/HPF 0-3 HPF (0-3)
[2019-09-26 14:49] LABS: Anion Gap 11 mmol/L (10-20); BUN (Urea Nitrogen) 17 mg/dL (9.8-20.1); Calc. Creatinine Clearance 0 mL/min (70-130); Calcium 9.5 mg/dL (7.8-10.44); Carbon Dioxide 27 mmol/L (22-29); Chloride 106 mmol/L (98-107); Estimated GFR-MDRD 68; Glucose 105 mg/dL (70-105); Potassium 3.2 mmol/L (3.5-5.1); Sodium 141 mmol/L (136-145)
[2019-09-26 15:20] LABS: Prothrombin Time 13.6 SEC (12.0-14.7)
== END 2019-09-26 09:39 | disposition home or self-care (01) ==
LOC: LABBT 09:38
PROVIDERS: ATTEND Orthopaedic Surgery
DX: Z01.818 Encounter for other preprocedural examination (principal); M17.0 Bilateral primary osteoarthritis of knee
CPT/HCPCS: 80048; 81001; 85025; 85610; 87081; 93005; 93010

== ENCOUNTER 2019-09-26 12:30 | Inpatient (IN) | payer OTHER ==
[2019-09-26 12:15] VITALS: BMI 40.8
[2019-10-07] MEDS ORDERED: Tranexamic Acid 1,000 MG/10 ML VIAL ONE ×2 (05:50→09:39)
[2019-10-07] MEDS ORDERED: Clindamycin/D5W 600 mg/50 ml Premix Bag ONE (05:50)
[2019-10-07] MEDS ORDERED: Sodium Chloride 0.9% 100 ML ONE (05:51)
[2019-10-07] MEDS ORDERED: Lidocaine 1% (PF) 30 ML VIAL ONE ×2 (06:20→06:26)
[2019-10-07] MEDS ORDERED: Midazolam HCl 2 mg/2 ml Vial ONE (06:20)
[2019-10-07] MEDS ORDERED: Ropivacaine 0.2% HCl/PF 20 ML ONE (06:20)
[2019-10-07] MEDS ORDERED: Fentanyl 100 MCG/2 ML VIAL ONE ×4 (06:20→10:18)
[2019-10-07] MEDS ORDERED: methylPREDNISolone Acetate 40 mg/ml Vial ONE (06:26)
[2019-10-07] MEDS ORDERED: Bupivacaine PF 0.5% 30 ML VIAL ONE (06:26)
[2019-10-07] MEDS ORDERED: traMADol HCl 50 MG TAB PO PRN ×3 (07:03→07:20)
[2019-10-07] MEDS ORDERED: Fentanyl 100 MCG/2 ML VIAL SLOW IVP PRN ×2 (07:03→07:21)
[2019-10-07] MEDS ORDERED: HYDROcodone/Acetaminophen 10/325 mg Tablet PO PRN ×3 (07:03→07:20)
[2019-10-07] MEDS ORDERED: Zolpidem Tartrate 5 MG TAB PO PRN ×2 (07:03→07:20)
[2019-10-07] MEDS ORDERED: Promethazine HCl 25 MG/ML VIAL IM PRN ×3 (07:03→07:57)
[2019-10-07] MEDS ORDERED: Ondansetron PF 4 MG/2 ML Vial IVP PRN ×2 (07:03→07:20)
[2019-10-07] MEDS ORDERED: Acetaminophen 325 MG TAB PO PRN ×2 (07:03→07:22)
[2019-10-07] MEDS ORDERED: diphenhydrAMINE 25 MG CAP PO PRN (07:03)
[2019-10-07] MEDS ORDERED: Famotidine 20 MG TAB PO PRN (07:05)
[2019-10-07] MEDS ORDERED: Furosemide 40 MG TAB PO PRN (07:05)
[2019-10-07] MEDS ORDERED: Tranexamic Acid 1,000 MG in Sodium Chloride 0.9% 100 ML IVPB SCH (07:15)
[2019-10-07] MEDS ORDERED: Ropivacaine HCl/PF 250 ML in Premix Bag 1 BAG NERVE BLCK SCH (07:20)
[2019-10-07] MEDS ORDERED: Promethazine HCl 25 MG/ML VIAL SLOW IVP PRN (07:57)
[2019-10-07] MEDS ORDERED: Ondansetron HCl/PF 4 MG/2 ML Vial IVP PRN (07:57)
[2019-10-07] MEDS ORDERED: Aspirin 81 mg Enteric Coated Tablet PO SCH (09:00)
[2019-10-07] MEDS ORDERED: Aspirin Chewable 81 MG TAB PO SCH (09:00)
[2019-10-07] MEDS ORDERED: Non-Formulary Item 1 EACH (Multivitamin [Daily Multiple Vitamin] 1 EACH) PO SCH (09:00)
[2019-10-07] MEDS ORDERED: Acetaminophen 1,000 MG in Premix Bag 1 BAG IVPB SCH (11:15)
[2019-10-07] MEDS: Ketorolac Tromethamine 30 MG/ML VIAL IVP SCH ×3 (11:31→23:37)
[2019-10-07] MEDS: Clindamycin/D5W 900 MG in Premix Bag 1 BAG IVPB SCH ×2 (11:34→17:30)
[2019-10-07] MEDS: Montelukast Sodium 10 mg Tablet PO SCH (11:40)
[2019-10-07] MEDS: Magnesium Oxide 250 MG TAB PO SCH (11:40)
[2019-10-07] MEDS: Sodium Chloride 0.9% 1,000 ML IV SCH ×2 (11:41→13:24)
[2019-10-07] MEDS: Baclofen 10 MG TAB PO SCH ×2 (11:41→20:54)
[2019-10-07] MEDS: Losartan 25 MG TAB PO SCH (11:41)
[2019-10-07] MEDS: Amlodipine 10 MG TAB PO SCH (11:41)
[2019-10-07] MEDS: Ascorbic Acid 500 mg Chewable Tablet PO SCH (11:41)
[2019-10-07] MEDS ORDERED: Scopolamine 1.5 mg/72 hour Patch TD SCH (12:00)
[2019-10-07] MEDS ORDERED: Bupivacaine HCl 0.5%/Epinephrine 1:200,000/PF 30 ml Vial ONE (13:05)
[2019-10-07] MEDS ORDERED: Ropivacaine 0.2% HCl/PF (40 MG/20 ML VIAL) ONE (13:05)
[2019-10-07] MEDS ORDERED: Ketorolac Tromethamine 30 MG/ML VIAL ONE (13:05)
[2019-10-07] MEDS ORDERED: PROPOFOL 200 MG/20 ML VIAL ONE (13:05)
[2019-10-07] MEDS ORDERED: Ondansetron PF 4 MG/2 ML Vial ONE (13:05)
[2019-10-07] MEDS ORDERED: Lidocaine 1% PF 5 ML VIAL ONE (13:05)
[2019-10-07] MEDS ORDERED: Ketorolac Tromethamine 30 MG/ML VIAL IVP SCH (14:00)
--- NOTE | 2019-10-07 14:45 | OP ---
DATE OF PROCEDURE: 10/07/2019 PURCHASING ASSOCIATE: Manjit Ma PA-C PREOPERATIVE DIAGNOSIS: Bilateral knee arthritis, right worse than left. POSTOPERATIVE DIAGNOSIS: Bilateral knee arthritis, right worse than left. PROCEDURES PERFORMED: 1. Right total knee replacement using Keenan pinless navigation. 2. Left knee corticosteroid injection. ESTIMATED BLOOD LOSS: Minimal. COMPLICATIONS: None. ANESTHESIA: The patient did have a general anesthetic as well as a preoperative block. IMPLANTS: To the right knee, [employer] total knee system. The femur was a size 4 cruciate-retaining femur. We used a size 4 primary tibial baseplate. We used a 4 x 11 mm CS X3 tibial poly and an asymmetric 29 x 9 X3 patella. DISPOSITION: She did go to recovery room in stable condition. INDICATIONS: This is a 58-year-old female, who comes in with bilateral knee arthritis with the right being worse than the left and wanting to have her right knee replaced and the left knee injected. DESCRIPTION OF PROCEDURE: After all appropriate consent forms were explained and signed, she was taken back to the operating room and at this time was given general anesthetic. Once the level of anesthesia was appropriate, the left knee was cleaned with alcohol and 80 mg of Depo-Medrol with plain Lidocaine was injected into the left knee without complication. After all appropriate consent forms were explained and signed, the patient was taken back to the operating room and at this time was given general anesthetic. Once the level of anesthesia was appropriate, a well-padded tourniquet was placed on the right leg, and the leg was then prepped and draped in standard surgical fashion. The limb was exsanguinated and tourniquet taken up to 300 mmHg. Midline incision was made with a 10 blade down through the skin and subcutaneous tissue. Bovie electrocautery was used to coagulate any brisk venous bleeding. A new blade was used to make a medial parapatellar arthrotomy. Small subperiosteal release was performed medially and excess fat pad was removed. The knee was flexed up to gain access to the femur. The femur was navigated and distal femoral resection was made. Epicondylar access was used to align our sizing jig and this was pinned in place. We sized our femur to be a size 4 cruciate-retaining femur. 4:1 cutting block was applied and pinned. Anterior and posterior chamfer cuts were then made. We navigated out our proximal tibia and made our proximal tibial resection. Spreaders were used to remove any posterior osteophytes off the back of the femur as well as remaining meniscal tissue. A long alignment ranulfo was then used to achieve correct rotation of our tibial baseplate and we used a size 4 primary tibial baseplate was chosen. This was pinned in place. We trialed the polyethylene and we used a 4 x 11 mm CS X3 tibial polyethylene gave us full extension and good stability throughout range of motion. Two towel clips and a saw were used to cut our patella. Three lug nuts were drilled and an asymmetric 29 x 9 X3 patella was trialed which sat nicely in the trochlear groove. We then drilled our femur and punched our tibia. All components were removed. The knee was thoroughly irrigated and dried. Cement was mixed into the cement gun on the back table. Components were then placed. The knee was held out in full extension until the cement had dried. All excess bone cement was removed. Multiple #2 Vicryl stitches as well as a Quill were used to close our extensor mechanism. 0 Quill followed by a running Monoderm was then used to close the skin. Surgicel glue was then used on the skin. Once this had dried, soft tissue dressing was applied to the limb, tourniquet was let down, and the toes pinked up nicely. The patient was then awakened and taken to the recovery room in stable condition. All counts were correct at the end of the case. The patient did receive preoperative IV antibiotics. The patient was injected with Marcaine for postoperative pain relief. Job ID: [id number] [facility]
[2019-10-07] MEDS: Mometasone/Formoterol 120 PUFF INHALER INH SCH (19:55)
[2019-10-07] MEDS: Bacitracin Zinc Ointment 30 gm TUBE TOP SCH (20:54)
[2019-10-07] MEDS: Atorvastatin Calcium 10 MG TAB PO SCH (20:54)
--- NOTE | 2019-10-07 22:02 | CON ---
DATE OF CONSULTATION: 10/07/2019 RESIDENT: Morris Marroquin MD. CHIEF COMPLAINT: Right knee total knee replacement. HISTORY OF PRESENT ILLNESS: Ms. Reta Cueto is a 58-year-old female who presents postop after the right total knee replacement earlier this morning. The patient reports doing well. Reports pain being well controlled at this time. The patient denies any nausea, vomiting, diarrhea, or constipation. Denies any chest pain or shortness of breath. Denies any headache or vision changes. Denies any urinary symptoms. Overall, the patient reports doing well. The patient denies any recent medication changes since her last clinic visit. REVIEW OF SYSTEMS: All review of systems not listed in the HPI, otherwise noted to be negative at this time. PAST MEDICAL HISTORY: Hyperlipidemia, heart failure with preserved ejection fracture, obstructive sleep apnea, history of SVT status post ablation, GERD, osteoarthritis, hypertension, and COPD. PAST SURGICAL HISTORY: Includes; 1. Total hysterectomy and bilateral salpingo-oophorectomy. 2. History of SVT ablation. 3. Reports cholecystectomy. 4. Reports prior other abdominal surgery. 5. Reports multiple knee arthroscopies. FAMILY HISTORY: Significant heart pathology. SOCIAL HISTORY: Denies any smoking, alcohol, or illicit drug use. Code status reports being full code. OBJECTIVE: VITAL SIGNS: Temperature is 98.2, pulse is 88, respirations are 16, O2 saturation is 94% on room air, blood pressure is 120/74. GENERAL: The patient is alert and oriented x3, in no acute distress. HEENT: Atraumatic, normocephalic. CARDIOVASCULAR: Regular rate and rhythm. No murmurs or gallops. No lower extremity edema noted. RESPIRATORY: Lungs are clear to auscultation bilaterally. No wheezes, crackles, or rubs. No respiratory distress noted. ABDOMEN: Nontender to palpation. Nondistended. No masses or hernias noted. EXTREMITIES: Right now, her right knee is covered in dressing. Has knee brace on. There is no sign of drainage. There is swelling noted. Otherwise, the patient has gross range of motion intact. NEURO: No focal neuro deficit noted. Grossly normal hearing. Grossly normal vision. PSYCH: The patient is alert and oriented. Affect is euthymic. LABORATORY DATA: There were no labs done prior to this surgery. IMAGING: No imaging was done prior to this surgery. ASSESSMENT AND PLAN: hypertension. We will continue her home medications. Continue to monitor and adjust as needed. For her hyperlipidemia, again continue home medications. For pain control, refer to Surgery recommendations at this time for knee pain surgery. For gastroesophageal reflux disease, we restarted her omeprazole. For her obstructive sleep apnea, we will order a CPAP at night. At this time, there are vancomycin and clindamycin likely for surgical prophylaxis. At this point, we will follow along until the patient is discharged, pending PT recs. We will continue to monitor blood pressure and adjust medications as needed. Job ID: [id number]
[2019-10-08] MEDS: Sodium Chloride 0.9% 1,000 ML IV SCH ×3 (03:03→22:46)
[2019-10-08] MEDS: HYDROcodone/Acetaminophen 10/325 mg Tablet PO PRN ×2 (03:39→20:51)
[2019-10-08] MEDS: Ketorolac Tromethamine 30 MG/ML VIAL IVP SCH ×4 (05:13→23:43)
[2019-10-08 05:55] LABS: Hemoglobin 9.9 g/dL (12.0-16.0); Mean Corpuscular HGB CONC 32.1 g/dL (32.0-36.0); Mean Corpuscular Hemoglobin 28.2 pg (27.0-31.0); Mean Corpuscular Volume 87.9 fL (78.0-98.0); Mean Platelet Volume 8.2 fL (7.4-10.4); Platelet Count 381 thou/uL (130-400); RBC Distribution Width 14.3 % (11.5-14.5); Red Blood Cell (RBC) Count 3.51 mill/uL (4.20-5.40); White Blood Cell (WBC) Count 13.3 thou/uL (4.8-10.8)
--- NOTE | 2019-10-08 06:19 | PDOC.FM ---
- Subjective Subjective: Pt had knee replacement yesterday, states she has no pain this morning. She was up and walking with physical therapy yesterday. States she is voiding, millan is removed. Nerve block still in place. She is eating/ drinking, due to stool. - Objective Vital Signs & Weight: Vital Signs (12 hours) Temp Pulse Resp BP Pulse Ox 10/08/19 03:20 97.8 F 80 16 123/75 95 10/07/19 23:22 98.0 F 78 16 131/76 95 10/07/19 20:40 94 L 10/07/19 19:55 85 14 96 10/07/19 19:41 98.2 F 88 16 120/74 94 L Weight Weight 129.274 kg I&O: 10/06/19 10/07/19 10/08/19 06:59 06:59 06:59 Intake Total 3490 Output Total 2375 Balance 1115 Result Diagrams: 10/08/19 04:48 Phys Exam - Physical Examination Constitutional: NAD Respiratory: no wheezing, clear to auscultation bilateral Cardiovascular: RRR, no significant murmur Gastrointestinal: soft, non-tender, positive bowel sounds Musculoskeletal: no edema, pulses present Neurological: non-focal, moves all 4 limbs Psychiatric: normal affect, A&O x 3 Skin: normal turgor, cap refill <2 seconds Dx/Plan (1) HLD (hyperlipidemia) Code(s): E78.5 - HYPERLIPIDEMIA, UNSPECIFIED Status: Acute (2) (HFpEF) heart failure with preserved ejection fraction Code(s): I50.30 - UNSPECIFIED DIASTOLIC (CONGESTIVE) HEART FAILURE Status: Acute (3) Hx of supraventricular tachycardia Code(s): Z86.79 - PERSONAL HISTORY OF OTHER DISEASES OF THE CIRCULATORY SYSTEM Status: Acute (4) GERD (gastroesophageal reflux disease) Code(s): K21.9 - GASTRO-ESOPHAGEAL REFLUX DISEASE WITHOUT ESOPHAGITIS Status: Acute (5) COPD (chronic obstructive pulmonary disease) Status: Acute (6) Status post total right knee replacement Code(s): Z96.651 - PRESENCE OF RIGHT ARTIFICIAL KNEE JOINT Status: Acute (7) Anemia Code(s): D64.9 - ANEMIA, UNSPECIFIED Status: Acute (8) Osteoarthritis Code(s): M19.90 - UNSPECIFIED OSTEOARTHRITIS, UNSPECIFIED SITE Status: Acute (9) HTN (hypertension) Code(s): I10 - ESSENTIAL (PRIMARY) HYPERTENSION Status: Chronic Qualifiers: (10) VICKY on CPAP Code(s): G47.33 - OBSTRUCTIVE SLEEP APNEA (ADULT) (PEDIATRIC); Z99.89 - DEPENDENCE ON OTHER ENABLING MACHINES AND DEVICES Status: Chronic - Plan Plan: 58 yo F 1 day s/p Right total knee replacement POD #1 Right total Knee replacement -s/p vanc and clinda -Ortho to monitor pain medications -ketorolac, tylenol, home hydrocodone, ropivacaine nerve block in place, tramadol -senna/doc, added miralax -NS @ 100 ml/hr -PRN zofran and promethazine -millan removed Normocytic Anemia, likely acute blood loss anemia -9.9, asymptomatic; continue to monitor -continue outpatient Fe supplementation HLD -continue home meds HTN -controlled, last BP 123/75 -continue home amlodipine, losartan HFpEF -continue home meds -lasix VICKY -CPAP @ night SVT s/p ablation -aware GERD -continue home famotidine COPD -aware -duonebs -home inhaler Osteoarthritis Diet: Regular, fluid restrict 2000 ml/day DVT ppx: SCDs GI ppx: famotidine PCP: Dr. Margarita [place] Services: PT consulted Dispo: Continue PT, continue monitoring pain, likely home 1-2 days. Addendum - Attending - Attending Attestation Date/Time: 10/08/19 4417 I personally evaluated the patient and discussed the management with Dr. Augustine. I agree with the History, Examination, Assessment and Plan documented above with any addition or exceptions noted below. Resumed home medication. Monitor BP. Will follow through this hospitalization.
[2019-10-08] MEDS: Mometasone/Formoterol 120 PUFF INHALER INH SCH ×2 (06:58→18:27)
[2019-10-08] MEDS ORDERED: Ropivacaine 0.2% 550 ML 550 ML NERVE BLCK SCH (08:31)
[2019-10-08] MEDS: Montelukast Sodium 10 mg Tablet PO SCH (08:47)
[2019-10-08] MEDS: Senokot S 8.6-50 MG TAB PO SCH ×2 (08:47→20:52)
[2019-10-08] MEDS: Losartan 25 MG TAB PO SCH (08:47)
[2019-10-08] MEDS: Baclofen 10 MG TAB PO SCH ×2 (08:47→20:52)
[2019-10-08] MEDS: Magnesium Oxide 250 MG TAB PO SCH (08:48)
[2019-10-08] MEDS: Aspirin 325 MG TAB PO SCH (08:48)
[2019-10-08] MEDS: Multivitamin W/ Minerals 1 TAB PO SCH (08:49)
[2019-10-08] MEDS: Ferrous Gluconate 324 MG TAB PO SCH ×2 (08:49→17:31)
[2019-10-08] MEDS: Amlodipine 10 MG TAB PO SCH (08:49)
[2019-10-08] MEDS: Ascorbic Acid 500 mg Chewable Tablet PO SCH (08:50)
[2019-10-08] MEDS: Polyethylene Glycol 3350 17 GM Packet PO SCH (08:51)
[2019-10-08] MEDS: Bacitracin Zinc Ointment 30 gm TUBE TOP SCH ×2 (09:00→20:53)
[2019-10-08] MEDS ORDERED: Mupirocin 2% Ointment (Nasal) 1 GM TUBE EA NARE SCH (09:00)
--- NOTE | 2019-10-08 09:22 | PDOC.EVN ---
Event Note - Event Note Event Note: Date/Time: 10/07/19 18:30 I personally evaluated the patient and discussed the management with Dr. Marroquin I agree with the History, Examination, Assessment and Plan documented above with any addition or exceptions noted below- 58 yo female with h/o HTN, COPD, VICKY, and HLD admitted for right TKR. Family medicine consulted for management of chronic medical conditions. Patient denies any complaints. Pain well controlled. PMH/PSH/Meds/SH reviewed and agree with resident's documentation. Afebrile VSS Exam repeated by me and agree with resident's findings. A/P: 1) DOC s/p R TKR - plans as ortho. 2) HTN- resume home medications. 3) VICKY- use CPAP at night; patient has her machine. 4) COPD - continue home meds and prn nebs.
--- NOTE | 2019-10-08 09:42 | PRG ---
DATE OF SERVICE: 10/08/2019 SUBJECTIVE: Reta is a 58-year-old female, postop day 1 from right total knee arthroplasty. She is doing relatively well. Her pain is controlled. She ambulated inside the room yesterday evening. OBJECTIVE: VITAL SIGNS: Temperature 97.7, pulse 70, respiratory rate 16 and unlabored, and blood pressure 127/76. GENERAL: She is alert and oriented to person, place, time, situation, responsive, appropriate with examiner, nonfocal. EXTREMITIES: Her incision is clean. No strikethrough. She is neurovascularly intact in the right lower extremity. LABORATORY DATA: Hemoglobin and hematocrit 9.9 and 30.8. IMPRESSION: A 58-year-old female postop day 1, right total knee arthroplasty doing well. PLAN: Continue current care. We will watch her H and H for another day, but probable discharge to home tomorrow. Job ID: [id number]
[2019-10-08] MEDS: Atorvastatin Calcium 10 MG TAB PO SCH (20:52)
[2019-10-08] MEDS: Mupirocin 2% Ointment 22 GM Tube TOP SCH (20:53)
[2019-10-09 05:50] LABS: Hemoglobin 9.7 g/dL (12.0-16.0); Mean Corpuscular Hemoglobin 29.2 pg (27.0-31.0); Mean Corpuscular Volume 88.3 fL (78.0-98.0); Mean Platelet Volume 7.7 fL (7.4-10.4); Platelet Count 373 thou/uL (130-400); RBC Distribution Width 14.4 % (11.5-14.5); Red Blood Cell (RBC) Count 3.31 mill/uL (4.20-5.40); White Blood Cell (WBC) Count 12.7 thou/uL (4.8-10.8)
[2019-10-09] MEDS: Ketorolac Tromethamine 30 MG/ML VIAL IVP SCH (06:03)
--- NOTE | 2019-10-09 06:56 | PDOC.FM ---
- Subjective Subjective: Eating, voiding, stooling, ambulating. Pain is well controlled. She has no concerns this AM. - Objective Vital Signs & Weight: Vital Signs (12 hours) Temp Pulse Resp BP Pulse Ox 10/09/19 03:11 97.9 F 75 16 116/79 97 10/08/19 23:25 98.1 F 86 18 136/82 95 10/08/19 20:45 97 10/08/19 19:31 98.0 F 79 18 129/79 97 Weight Admit Weight 129.274 kg Weight 129.274 kg I&O: 10/07/19 10/08/19 10/09/19 06:59 06:59 06:59 Intake Total 3490 888 Output Total 2375 1000 Balance 1115 -112 Result Diagrams: 10/09/19 05:28 Phys Exam - Physical Examination Constitutional: NAD Respiratory: no wheezing, clear to auscultation bilateral Cardiovascular: RRR, no significant murmur Gastrointestinal: soft, non-tender, no distention, positive bowel sounds Musculoskeletal: no edema, pulses present Neurological: non-focal, moves all 4 limbs Psychiatric: normal affect, A&O x 3 Skin: normal turgor, cap refill <2 seconds Dx/Plan (1) HLD (hyperlipidemia) Code(s): E78.5 - HYPERLIPIDEMIA, UNSPECIFIED Status: Acute (2) (HFpEF) heart failure with preserved ejection fraction Code(s): I50.30 - UNSPECIFIED DIASTOLIC (CONGESTIVE) HEART FAILURE Status: Acute (3) Hx of supraventricular tachycardia Code(s): Z86.79 - PERSONAL HISTORY OF OTHER DISEASES OF THE CIRCULATORY SYSTEM Status: Acute (4) GERD (gastroesophageal reflux disease) Code(s): K21.9 - GASTRO-ESOPHAGEAL REFLUX DISEASE WITHOUT ESOPHAGITIS Status: Acute (5) COPD (chronic obstructive pulmonary disease) Status: Acute (6) Status post total right knee replacement Code(s): Z96.651 - PRESENCE OF RIGHT ARTIFICIAL KNEE JOINT Status: Acute (7) Anemia Code(s): D64.9 - ANEMIA, UNSPECIFIED Status: Acute (8) Osteoarthritis Code(s): M19.90 - UNSPECIFIED OSTEOARTHRITIS, UNSPECIFIED SITE Status: Acute (9) HTN (hypertension) Code(s): I10 - ESSENTIAL (PRIMARY) HYPERTENSION Status: Chronic Qualifiers: (10) VICKY on CPAP Code(s): G47.33 - OBSTRUCTIVE SLEEP APNEA (ADULT) (PEDIATRIC); Z99.89 - DEPENDENCE ON OTHER ENABLING MACHINES AND DEVICES Status: Chronic - Plan Plan: 58 yo F 1 day s/p Right total knee replacement POD #2 Right total Knee replacement -Ortho to monitor pain medications, pain well controlled this AM -ketorolac, tylenol, home hydrocodone, ropivacaine nerve block in place, tramadol -Had BM yesterday -Stop IV fluids -PRN zofran and promethazine -PT following, patient ambulating well Normocytic Anemia, likely acute blood loss anemia -9.7, stable -continue outpatient Fe supplementation HLD -continue home meds HTN -controlled -continue home amlodipine, losartan HFpEF -continue home meds -lasix VICKY -CPAP @ night SVT s/p ablation -aware GERD -continue home famotidine COPD -aware -duonebs -home inhaler Osteoarthritis Diet: Regular DVT ppx: SCDs GI ppx: famotidine PCP: Dr. Margarita Moctezuma Services: PT consulted Dispo: Continue PT, likely home today Addendum - Attending - Attending Attestation Date/Time: 10/09/19 3450 I personally evaluated the patient and discussed the management with Dr. Augustnie I agree with the History, Examination, Assessment and Plan documented above with any addition or exceptions noted below. BP controlled. dispo per ortho.
[2019-10-09 07:50] VITALS: BP 130/87; TEMP 97.5
[2019-10-09] MEDS: Amlodipine 10 MG TAB PO SCH (08:37)
[2019-10-09] MEDS: Senokot S 8.6-50 MG TAB PO SCH (08:37)
[2019-10-09] MEDS: Montelukast Sodium 10 mg Tablet PO SCH (08:38)
[2019-10-09] MEDS: Ferrous Gluconate 324 MG TAB PO SCH (08:38)
[2019-10-09] MEDS: Baclofen 10 MG TAB PO SCH (08:38)
[2019-10-09] MEDS: Magnesium Oxide 250 MG TAB PO SCH (08:38)
[2019-10-09] MEDS: Ascorbic Acid 500 mg Chewable Tablet PO SCH (08:38)
[2019-10-09] MEDS: Losartan 25 MG TAB PO SCH (08:38)
[2019-10-09] MEDS: Multivitamin W/ Minerals 1 TAB PO SCH (08:38)
[2019-10-09] MEDS: Aspirin 325 MG TAB PO SCH (08:39)
[2019-10-09] MEDS: Polyethylene Glycol 3350 17 GM Packet PO SCH ×2 (08:39→08:45)
[2019-10-09] MEDS: Mupirocin 2% Ointment 22 GM Tube TOP SCH (08:39)
[2019-10-09] MEDS: Mometasone/Formoterol 120 PUFF INHALER INH SCH (08:57)
--- NOTE | 2019-10-10 11:26 | CON ---
DATE OF CONSULTATION: 10/07/2019 REASON FOR CONSULTATION: Medical management. CHIEF COMPLAINT: Here for elective procedure. HISTORY OF PRESENT ILLNESS: This is a 58-year-old female, who is here postop after right total knee replacement. She has a history of COPD, hypertension, hyperlipidemia, osteoarthritis. At this time, the patient had surgery earlier this morning. Reports doing well. Reports pain being controlled at this time. The patient reports getting up and moving just a little bit. Denies any chest pain or shortness of breath. Denies any headaches. Denies any fever or chills. Denies any vision changes. Denies any nausea, vomiting, diarrhea, or constipation. The patient denies any urinary symptoms, burning with peeing. The patient denies any weird rashes or anything like that. Denies any cough or nasal congestion. Denies any numbness or tingling. REVIEW OF SYSTEMS: All review of systems not listed in the HPI, otherwise noted negative. FAMILY HISTORY: Reports history of heart history in the family. MEDICATIONS: The patient takes: 1. Amlodipine 10 mg one time daily. 2. Atorvastatin 10 mg oral daily. 3. Baclofen 10 mg take one tablet by mouth twice daily. 4. Arthrotec 75 - 0.2 mg take one tablet by mouth twice daily. 5. Singulair 10 mg oral tablet once daily. 6. Losartan potassium 25 mg once daily. 7. Breo Ellipta 400 - 25 mcg inhaler one puff once daily. 8. Lasix 40 mg oral as needed for swelling. 9. One-A-Day Women's , take one tablet by mouth. 10. Vitamin D3 of 5000 unit oral capsule, take one tablet by mouth daily. 11. 81 mg take one tablet by mouth daily. 12. Premarin 1.25 mg oral tab, take one tablet by mouth daily. PAST MEDICAL HISTORY: Includes hyperlipidemia, heart failure with preserved ejection fraction, obstructive sleep apnea, history of SVT status post ablation, history of GERD, osteoarthritis, and hypertension. PAST SURGICAL HISTORY: The patient has had total hysterectomy from bilateral salpingectomy. She has reported multiple knee arthroscopes, reports having had abdominal surgeries. The patient is post cholecystectomy. SOCIAL HISTORY: The patient denies any smoking, alcohol, or illicit drug use. CODE STATUS: The patient reports code status is full. Job ID: [id number]
== END 2019-10-09 12:07 | disposition home or self-care (01) | DRG 470 ==
LOC: SURG A 10-07 05:34 → SJJU 10-07 11:09
PROVIDERS: ADMIT Orthopaedic Surgery; ATTEND Orthopaedic Surgery
PROC: 0SRC0J9 Replacement of Right Knee Joint with Synthetic Substitute, Cemented, Open Approach (ICD-10-PCS; principal; 2019-10-07)
PROC: 3E0U33Z Introduction of Anti-inflammatory into Joints, Percutaneous Approach (ICD-10-PCS; 2019-10-07)
PROC: 3E0U3BZ Introduction of Anesthetic Agent into Joints, Percutaneous Approach (ICD-10-PCS; 2019-10-07)
DX: M17.0 Bilateral primary osteoarthritis of knee (principal); I50.32 Chronic diastolic (congestive) heart failure; D62 Acute posthemorrhagic anemia; J30.2 Other seasonal allergic rhinitis; G47.30 Sleep apnea, unspecified; G47.33 Obstructive sleep apnea (adult) (pediatric); J44.9 Chronic obstructive pulmonary disease, unspecified; K21.9 Gastro-esophageal reflux disease without esophagitis; I11.0 Hypertensive heart disease with heart failure; Z88.0 Allergy status to penicillin; Z88.8 Allergy status to other drugs, medicaments and biological substances; Z98.82 Breast implant status; Z90.710 Acquired absence of both cervix and uterus; Z79.899 Other long term (current) drug therapy; Z79.82 Long term (current) use of aspirin; Z79.51 Long term (current) use of inhaled steroids; Z91.048 Other nonmedicinal substance allergy status; Z90.722 Acquired absence of ovaries, bilateral; Z90.49 Acquired absence of other specified parts of digestive tract
CPT/HCPCS: 36415; 85027; A4306; C1713; C1776; J0131; J1030; J1885; J2001; J2250; J2405; J2795; J3010; J3370; J3490; J7050; S0020

== ENCOUNTER 2019-10-14 12:51 | Day surgery (SDC) | payer OTHER ==
[~2019-10-14 12:51] MED LIST changes: +Lidocaine 1% PF 5 ML VIAL ONE; +Ondansetron PF 4 MG/2 ML Vial ONE; +PROPOFOL 200 MG/20 ML VIAL ONE; -Sodium Chloride 0.9% 15 ML NEB ONE
[2019-10-14] MEDS ORDERED: Levofloxacin 500 mg/D5W 100 ml Premix Bag ONE (14:07)
[2019-10-14] MEDS ORDERED: Sodium Chloride 0.9% 1,000 ML IV SCH (14:15)
[2019-10-14] MEDS ORDERED: Fentanyl 100 MCG/2 ML VIAL SLOW IVP PRN ×2 (14:16→18:40)
[2019-10-14] MEDS ORDERED: Scopolamine 1.5 mg/72 hour Patch ONE (15:28)
[2019-10-14] MEDS ORDERED: Fentanyl 100 MCG/2 ML VIAL ONE ×3 (17:57→18:57)
[2019-10-14] MEDS ORDERED: Promethazine HCl 25 MG/ML VIAL IM PRN (18:28)
[2019-10-14] MEDS ORDERED: Promethazine HCl 25 MG/ML VIAL SLOW IVP PRN (18:28)
[2019-10-14] MEDS ORDERED: Ondansetron HCl/PF 4 MG/2 ML Vial IVP PRN ×2 (18:28→19:17)
[2019-10-14] MEDS ORDERED: Morphine 4 MG/ML VIAL SLOW IVP PRN (18:40)
[2019-10-14] MEDS ORDERED: Ondansetron PF 4 MG/2 ML Vial IM PRN (18:40)
[2019-10-14] MEDS ORDERED: HYDROcodone/Acetaminophen 10/325 mg Tablet PO PRN ×2 (18:40)
[2019-10-14] MEDS ORDERED: traMADol HCl 50 MG TAB PO PRN (18:40)
[2019-10-14] MEDS ORDERED: Acetaminophen 325 MG TAB PO PRN (18:40)
[2019-10-14] MEDS ORDERED: Ketorolac Tromethamine 30 MG/ML VIAL ONE (19:02)
[2019-10-14] MEDS ORDERED: Morphine 2 MG/ML SYRINGE ONE (19:03)
[2019-10-14] MEDS ORDERED: PACU-Morphine 4MG/ML VIAL SLOW IVP PRN (19:17)
[2019-10-14] MEDS ORDERED: Morphine Sulfate 2 MG/ML SYRINGE SLOW IVP PRN (19:17)
[2019-10-14] MEDS ORDERED: Promethazine HCl 25 MG/ML VIAL IM/IV PRN (19:17)
[2019-10-14] MEDS ORDERED: Non-Formulary Medication 1 EACH PO PRN (19:17)
[2019-10-14] MEDS ORDERED: Ketorolac Tromethamine 30 MG/ML VIAL IM/IV PRN (19:17)
[2019-10-14] MEDS: Sodium Chloride 0.9% 1,000 ML IV SCH (19:50)
[2019-10-14] MEDS ORDERED: Aspirin 81 mg Enteric Coated Tablet PO SCH (21:00)
[2019-10-14 23:36] VITALS: BMI 40.3
[2019-10-15] MEDS: Ketorolac Tromethamine 30 MG/ML VIAL IVP SCH ×2 (01:00→06:29)
[2019-10-15] MEDS: Sodium Chloride 0.9% 1,000 ML IV SCH (03:48)
[2019-10-15] MEDS ORDERED: Vancomycin 1.5 GRAM/300 ML BAG 1.5 GM in Premix Bag 1 BAG IVPB SCH (04:00)
[2019-10-15 08:29] VITALS: BP 120/73; TEMP 98.1
--- NOTE | 2019-10-15 10:52 | OP ---
DATE OF PROCEDURE: 10/14/2019 PREOPERATIVE DIAGNOSIS: Wound dehiscence, right knee. POSTOPERATIVE DIAGNOSIS: Wound dehiscence, right knee. PROCEDURES PERFORMED: Irrigation and debridement of right knee wound with complex closure in layers. ERP IMPLEMENTATION CONSULTANT: Earle Christian PA-C BLOOD LOSS: Less than 100. SPECIMEN: None. DRAINS: None. COMPLICATION: None. DESCRIPTION OF PROCEDURE: The patient was taken to the operating room, where general anesthesia was induced. Right leg was prepped and draped in usual sterile fashion. After exsanguination, tourniquet inflated to 350 mmHg. I opened up the entire extent of the old incision, so that I could carefully inspect the medial parapatellar arthrotomy. I put the knee through a range of motion past 100 degrees of flexion. There was no fluid leaking from the arthrotomy. The extensor mechanism appeared to be completely intact with no liquid communicating. Therefore, I did not open the joint proper, cleaned the inside of the skin and the outside of the patella and retinaculum with curettes and pulsatile lavage irrigation. The wound was then closed with 2-0 Vicryl subcu layer and 2-0 Prolene for the skin. Sterile bulky dressing was applied. The tourniquet was released. Job ID: [id number]
== END 2019-10-15 09:58 | disposition home or self-care (01) ==
LOC: SDC 12:51 → SJJU 20:01 → SDC 10-15 09:58
PROVIDERS: ATTEND Orthopaedic Surgery
PROC: 0SJC0ZZ Inspection of Right Knee Joint, Open Approach (ICD-10-PCS; principal; 2019-10-14)
DX: T81.31XA Disruption of external operation (surgical) wound, not elsewhere classified, initial encounter (principal); Z79.82 Long term (current) use of aspirin; Z79.899 Other long term (current) drug therapy; Z88.0 Allergy status to penicillin; Z91.048 Other nonmedicinal substance allergy status; Z96.659 Presence of unspecified artificial knee joint; Z98.890 Other specified postprocedural states
CPT/HCPCS: J1885; J1956; J2001; J2270; J2405; J2704; J3010; J3370; J7050

== ENCOUNTER 2019-12-20 11:50 | Inpatient (IN) | payer OTHER ==
[2019-12-19 14:52] VITALS: BMI 38.7
[~2019-12-20 11:50] MED LIST changes: +Bupivacaine HCl 0.5%/Epinephrine 1:200,000/PF 30 ml Vial ONE; +Dexamethasone 20 MG/5 ML VIAL ONE; +EPHEDRINE 25 MG/5 ML SYRINGE ONE; +Metoclopramide HCl 10 MG/2 ML VIAL ONE; +diphenhydrAMINE 50 MG/ML VIAL ONE
[2019-12-20] MEDS ORDERED: Clindamycin/D5W 600 mg/50 ml Premix Bag ONE (12:04)
[2019-12-20 12:38] LABS: #Eosinphils 0.1 thou/uL (0.0-0.7); #Lymphocytes 2.4 thou/uL (1.20-3.40); #Monocytes 0.5 thou/uL (0.11-0.59); #Neutrophils 5.8 thou/uL (1.40-6.50); %Basophils 0.6 % (0.0-1.0); %Eosinophils 1.5 % (0.0-10.0); %Lymphocytes 27.2 % (21.0-51.0); %Monocytes 5.5 % (0.0-10.0); %Neutrophils 65.3 % (42.0-75.0); Hemoglobin 10.7 g/dL (12.0-16.0); Mean Corpuscular HGB CONC 32.3 g/dL (32.0-36.0); Mean Corpuscular Hemoglobin 28.3 pg (27.0-31.0); Mean Corpuscular Volume 87.6 fL (78.0-98.0); Mean Platelet Volume 7.1 fL (7.4-10.4); Platelet Count 460 thou/uL (130-400); RBC Distribution Width 14.5 % (11.5-14.5); Red Blood Cell (RBC) Count 3.79 mill/uL (4.20-5.40); White Blood Cell (WBC) Count 8.8 thou/uL (4.8-10.8)
[2019-12-20] MEDS ORDERED: Heparin 1,000 UNITS/ML VIAL ONE (12:41)
[2019-12-20] MEDS ORDERED: Fentanyl 100 MCG/2 ML VIAL ONE ×3 (12:44→14:59)
[2019-12-20] MEDS ORDERED: Midazolam HCl 2 mg/2 ml Vial ONE (12:44)
[2019-12-20] MEDS ORDERED: Lidocaine 1% (PF) 30 ML VIAL ONE (12:47)
[2019-12-20 13:00] LABS: Anion Gap 13 mmol/L (10-20); BUN (Urea Nitrogen) 12 mg/dL (9.8-20.1); Calc. Creatinine Clearance 125 mL/min (70-130); Calcium 9.6 mg/dL (7.8-10.44); Carbon Dioxide 24 mmol/L (22-29); Chloride 108 mmol/L (98-107); Estimated GFR-MDRD 74; Glucose 94 mg/dL (70-105); Potassium 3.8 mmol/L (3.5-5.1); Sodium 141 mmol/L (136-145)
[2019-12-20] MEDS ORDERED: Scopolamine 1.5 mg/72 hour Patch ONE (14:08)
[2019-12-20] MEDS ORDERED: Promethazine HCl 25 MG/ML VIAL ONE (15:50)
[2019-12-20] MEDS ORDERED: Zolpidem Tartrate 5 MG TAB PO PRN (16:19)
[2019-12-20] MEDS ORDERED: Bisacodyl 10 MG SUPP PR PRN (16:19)
[2019-12-20] MEDS ORDERED: Fleet Enema 133 ML BOT PR PRN (16:19)
[2019-12-20] MEDS ORDERED: HYDROcodone/Acetaminophen 10/325 mg Tablet PO PRN (16:19)
[2019-12-20] MEDS ORDERED: Cepastat Lozenges 1 LOZ PO PRN (16:19)
[2019-12-20] MEDS ORDERED: traMADol HCl 50 MG TAB PO PRN (16:19)
[2019-12-20] MEDS ORDERED: Milk Of Magnesia 30 ML UDCUP PO PRN (16:19)
[2019-12-20] MEDS ORDERED: Fentanyl 100 MCG/2 ML VIAL SLOW IVP PRN (16:19)
[2019-12-20] MEDS ORDERED: Acetaminophen 325 MG TAB PO PRN (16:19)
[2019-12-20] MEDS ORDERED: Furosemide 40 MG TAB PO PRN (16:23)
[2019-12-20] MEDS ORDERED: Ondansetron HCl/PF 4 MG/2 ML Vial IVP PRN (16:25)
[2019-12-20] MEDS ORDERED: Promethazine HCl 25 MG/ML VIAL SLOW IVP PRN (16:25)
[2019-12-20] MEDS ORDERED: Promethazine HCl 25 MG/ML VIAL IM PRN (16:25)
[2019-12-20] MEDS ORDERED: Tranexamic Acid 1,000 MG in Sodium Chloride 0.9% 100 ML IVPB SCH (16:30)
[2019-12-20] MEDS: Sodium Chloride 0.9% 1,000 ML IV SCH (18:11)
[2019-12-20] MEDS: Clindamycin/D5W 900 MG in Premix Bag 1 BAG IVPB SCH ×2 (18:11→23:04)
--- NOTE | 2019-12-20 18:52 | OP ---
DATE OF PROCEDURE: 12/20/2019 PREOPERATIVE DIAGNOSIS: Infected right total knee. POSTOPERATIVE DIAGNOSIS: Infected right total knee. PROCEDURES PERFORMED: Right total knee I and D and exchange of tibial poly. MEDIA CONSULTANT: Manjit Ma PA-C BLOOD LOSS: Around 100 mL. COMPLICATIONS: None. ANESTHESIA: She did have a general anesthetic. She had preoperative blocks. We did exchange her tibial poly for a size 13 mm CS X3 tibial poly. The tibial poly was a 4 x 13 mm CS X3 tibial poly that we placed into the knee. DISPOSITION: She went to recovery room in stable condition. INDICATIONS: This is a 59-year-old female who approximately 9 weeks ago had a knee replacement. Since that time, she has had some issues with wound healing and earlier this week, her knee was tapped and grew out a Staph species and she is now here for formal I and D and poly exchange. DESCRIPTION OF PROCEDURE: After all appropriate consent forms were explained and signed, Reta was taken to the operative room and at this time was given a general anesthetic. Once the level of anesthesia was appropriate, tourniquet was placed in the right thigh. Leg was then prepped and draped in standard surgical fashion. The limb was elevated, not exsanguinated and tourniquet was taken up to 300 mmHg. Her old scar was completely removed an ellipsed. We then used a Bovie to coagulate any brisk venous bleeding. We did separate overlying skin from the underlying tissue both medial and lateral for a little bit. We then got down to her deep tissue. A gush of fluid came out from what appeared to be a defect in her quad tendon approximately an inch and a half to 2 inches above her patella. Cultures were obtained. At this time, we sucked up the rest of this fluid. We then performed our medial parapatellar arthrotomy, removing the edges of this defect area with the blade. We then went about removing superiorly in the suprapatellar pouch medial and lateral to the knee in the gutter region. The rind of tissue that had developed since her surgery. Again, there was no necrotic tissue noted and there was no mary pus. We also did remove scar tissue from the backside of the patellar tendon and around the patella. Once we felt good about this, we then went ahead and popped out our plastic. There was no mary pus or material behind the tibia in the back of the knee. We then ran 5 L with Betadine through the pulse lavage washing out the knee. We coagulated brisk venous bleeding. We then trialed our plastic and we felt that a 13 mm CS poly gave us better stability in her previously placed 11 and therefore, we would change our implant to a 13 mm. We then removed this trial. We thoroughly irrigated with another 5 L with a pulse lavage. At this time, just a straight saline and once this was done, we placed our final poly, which was a size 4 x 13 mm CS X3 tibial poly and reduced the knee. The knee was taken through full range of motion and found to be very stable. At this time, we finished irrigating. We then went about closing our tissue. This was a difficult closure and was done in multiple layers with a large PDS, medium PDS, and large Prolene on the skin. Once the skin closure was done, a bulky sterile dressing was applied and the tourniquet was let down. Prior to finishing our skin closure, we did take 1 g of vancomycin powder and we did take the powder and apply it to the deep knee around the distal femur, around the medial and lateral gutter, behind the patellar tendon, and then we went about closing our tissues as previously described. Once our bulky sterile dressing was applied, the patient was then awakened. She was taken to recovery room in stable condition. All counts were correct at the end of the case, and she did receive preoperative IV antibiotics. Job ID: [id number]
[2019-12-20] MEDS: Mometasone/Formoterol 120 PUFF INHALER INH SCH (19:52)
[2019-12-20] MEDS: Famotidine 20 MG TAB PO SCH (19:56)
[2019-12-20] MEDS: Baclofen 10 MG TAB PO SCH (19:56)
[2019-12-20] MEDS: Atorvastatin Calcium 10 MG TAB PO SCH (19:56)
[2019-12-20] MEDS: Aspirin 81 mg Enteric Coated Tablet PO SCH (19:56)
--- NOTE | 2019-12-21 02:22 | CON ---
DATE OF CONSULTATION: 12/20/2019 CONSULTING PHYSICIAN: Dr. Lev Deleon. REASON FOR CONSULT: Medical management. HISTORY OF PRESENT ILLNESS: Ms. Cueto is a 59-year-old female, who underwent a right total knee replacement on 10/14/2019 and has since then had difficulty with wound healing and recovery. Last week, she had about of URI symptoms associated with fever, which has now resolved, but then a couple of days ago developed severe right knee pain; seen by her orthopedic doctor in the clinic, where they did a tap of the knee, which resulted in Staph species. That culture has not finalized at this time per chart review. He brought her in at the suspicion of a MRSA species with her having a history of MRSA. She had a previous abscess on her back about a year ago, requiring major surgical I and D. Per the patient, her case has also been discussed with infectious disease doctor, Dr. Narayanan. Today, she was hospitalized and underwent a surgical I and D of the right knee as well as washout and exchange of the tibial poly. Currently, her pain is well controlled, and she has had no fevers on this admission. REVIEW OF SYSTEMS: 10-point review of systems was performed and found to be negative other than those reported in the HPI. PAST MEDICAL HISTORY: 1. VICKY. 2. Hypertension. 3. GERD. 4. Osteoarthritis. 5. Hyperlipidemia. 6. History of SVT, status post ablation. 7. Asthma. PAST SURGICAL HISTORY: 1. Breast augmentation. 2. Tummy tuck. 3. Tympanostomy in the left ear. 4. Several knee scopes. 5. Left plantar fascial release. 6. Total hysterectomy with bilateral oophorectomy. 7. AV ablation. 8. Tonsillectomy. 9. Surgical I and D of abscess of the back. SOCIAL HISTORY: The patient denied alcohol, drug, or tobacco use. 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 MEDICATIONS: The patient takes: 1. Atorvastatin 10 mg p.o. at bedtime. 2. Amlodipine 10 mg p.o. q.a.m. 3. Vitamin D3 5000 units p.o. daily. 4. Losartan 25 mg p.o. q.a.m. 5. Baclofen 10 mg p.o. b.i.d. p.r.n. 6. Premarin 1.25 mg p.o. daily. 7. Singulair 10 mg p.o. q.a.m. 8. Magnesium oxide 500 mg p.o. daily. 9. Celebrex 400 mg p.o. daily. ALLERGIES: THE PATIENT REPORTS ALLERGY TO ADHESIVE TAPE, PENICILLINS, AND CEPHALOSPORINS. FAMILY HISTORY: Reports breast cancer in maternal grandmother; hypertension, diabetes, and COPD in her mother; and an emphysema in her dad. PHYSICAL EXAMINATION: VITAL SIGNS: Temperature 97.7, pulse 82, respirations 16, O2 saturation 97% on 2 L, and blood pressure 125/81. GENERAL: Well developed, in no acute distress. HEENT: Moist mucous membranes. No JVD apparent. HEART: Regular rate and rhythm. No murmurs or extra sounds. Distal pulses 2+ . LUNGS: Clear to auscultation bilaterally. No wheezing or increased work of breathing. The patient is on 2 L nasal cannula at this time. ABDOMEN: Soft, nontender. Bowel sounds positive. EXTREMITIES: Left leg without any edema or cyanosis. Right leg has Stiven wrap from the foot up to the thigh. No evidence of erythema, warmth, or bruising outside of the dressing that is in place. The patient does have distal sensation and motion of the right lower extremity. SKIN: No rashes or wounds present. PSYCH: A and O x3. Normal mood. PERTINENT LABS AND IMAGING: CBC showing white blood cell count of 8.8, hemoglobin 10.7, hematocrit 33.2, platelets 460. BMP with sodium 141, potassium 3.8, chloride 108, CO2 of 24, anion gap 13, BUN 12, creatinine 0.94, glucose 94, calcium 9.6. ASSESSMENT AND PLAN: 1. Infected right total knee, status post surgical I and D, washout, and exchange of tibial poly. Pain management per primary team. Infectious Disease has been consulted. The patient is receiving clindamycin x2 doses and Vancomycin powder was placed in the joint during surgery. Currently, vital signs are stable without signs of sepsis. Wound culture pending. 2. Hypertension, stable. Continue home losartan and amlodipine. 3. Obstructive sleep apnea. The patient brought her home CPAP continued use. Did discuss and encourage incentive spirometry use. 4. Gastroesophageal reflux disease. Continue home medications of p.r.n. Pepcid. 5. Hyperlipidemia. Continue home atorvastatin. 6. History of supraventricular tachycardia, status post ablation. The patient was released from Cardiology a couple of months back and has had no issues. Currently appears to be in normal sinus rhythm with normal pulse at this time. 7. History of asthma. Continue home Singulair and p.r.n. nebulizer treatments. Thank you for this consult. We will continue to follow along with you. Job ID: [id number] MTDD
[2019-12-21] MEDS: Sodium Chloride 0.9% 1,000 ML IV SCH ×2 (05:35→10:20)
[2019-12-21] MEDS: HYDROcodone/Acetaminophen 10/325 mg Tablet PO PRN ×2 (05:40→14:45)
[2019-12-21] MEDS: Mometasone/Formoterol 120 PUFF INHALER INH SCH ×2 (07:15→18:53)
[2019-12-21 07:33] LABS: Hemoglobin 9.4 g/dL (12.0-16.0); Mean Corpuscular HGB CONC 32.7 g/dL (32.0-36.0); Mean Corpuscular Hemoglobin 28.8 pg (27.0-31.0); Mean Platelet Volume 7.5 fL (7.4-10.4); Platelet Count 437 thou/uL (130-400); RBC Distribution Width 14.6 % (11.5-14.5); Red Blood Cell (RBC) Count 3.26 mill/uL (4.20-5.40); White Blood Cell (WBC) Count 11.5 thou/uL (4.8-10.8)
--- NOTE | 2019-12-21 07:53 | PDOC.EVN ---
Addendum - Attending - Attending Attestation Date/Time: 12/21/19 3688 I personally evaluated the patient and discussed the management with Dr. Wyatt. I agree with the History, Examination, Assessment and Plan documented in her consult note with any addition or exceptions noted below. Patient here for infected R knee. We are consulted for medical mgmt. Continue home meds, will make changes as needed. Fluid balance and blood pressure currently at goal.
[2019-12-21] MEDS: Amlodipine 10 MG TAB PO SCH (09:19)
[2019-12-21] MEDS: Ascorbic Acid 500 mg Chewable Tablet PO SCH (09:20)
[2019-12-21] MEDS: Aspirin 81 mg Enteric Coated Tablet PO SCH ×2 (09:21→20:31)
[2019-12-21] MEDS: CeleCOXIB 100 MG CAP PO SCH (09:22)
[2019-12-21] MEDS: Baclofen 10 MG TAB PO SCH ×2 (09:22→20:31)
[2019-12-21] MEDS: Ferrous Gluconate 324 MG TAB PO SCH ×2 (09:24→20:31)
[2019-12-21] MEDS: Famotidine 20 MG TAB PO SCH ×2 (09:24→20:32)
[2019-12-21] MEDS: Losartan 25 MG TAB PO SCH (09:25)
[2019-12-21] MEDS: Montelukast Sodium 10 mg Tablet PO SCH (09:25)
[2019-12-21] MEDS: Magnesium Oxide 250 MG TAB PO SCH (09:25)
[2019-12-21] MEDS: Senokot S 8.6-50 MG TAB PO SCH ×2 (09:26→20:32)
[2019-12-21] MEDS: Multivitamin W/ Minerals 1 TAB PO SCH (09:26)
[2019-12-21] MEDS: Vancomycin HCl 1.75 GM in Sodium Chloride 0.9% 250 ML 300 ML IVPB SCH ×2 (10:00→20:32)
--- NOTE | 2019-12-21 14:04 | CON ---
DATE OF CONSULTATION: REASON FOR CONSULTATION: Right TKR infection. HISTORY OF PRESENT ILLNESS: A 59-year-old, familiar to me from prior visit when she presented at the beginning of last year with an inflammatory process in the soft tissues of the back secondary to MRSA. She was treated and successfully achieved remission of the disease and cure, and then the patient underwent procedure in the right knee area with replacement in the right side on 10/07. A few days later, the patient developed wound dehiscence in right knee, had irrigation and debridement of the right knee wound with complex closure in layers, and then subsequently developed pain in the knee, had arthrocentesis done by Dr. Jacome, which yielded Staphylococcus hominis subspecies hominis on 12/16. The organism was susceptible to doxycycline, rifampin, tetracycline, and vancomycin. After this finding, Dr. Deleon discussed with me and Dr. Jacome and with the patient and the decision was made to do a washout and liner replacement, which was carried out yesterday. She is now postoperative, doing quite well. No headaches, visual symptoms, sore throat, odynophagia, or dysphagia. No cough, sputum production, or chest pain. No abdominal pain or diarrhea. Minimal pain in the right knee. No neurological symptoms. PAST MEDICAL HISTORY: Includes: 1. Obesity. 2. Staphylococcal abscess. 3. MRSA in back area. 4. Hypertension. 5. Mammoplasty. 6. Osteoarthritis. 7. Left knee arthroscopy. 8. Right knee arthroscopy. 9. Plantar fascia release. 10. Tympanoplasty. 11. Abdominoplasty. 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 Never smoker. . Drinks occasionally. ALLERGIES: PENICILLIN, MOSTLY RASHES, MANY YEARS AGO. FAMILY HISTORY: Noncontributory. CURRENT MEDICATIONS: 1. [place]. 2. Norvasc. 3. Vitamin C. 4. Ecotrin. 5. Lipitor. 6. Lioresal. 7. Dulcolax. 8. Celebrex. 9. Pepcid. 10. Sublimaze. 11. Fergon. 12. Lasix. 13. Mometasone. 14. Vancomycin. PHYSICAL EXAMINATION: VITAL SIGNS: She has been afebrile. Other vital signs are normal. O2 saturations are 97 on room air. GENERAL: Appears in no distress, sitting by the bedside. SKIN: The surgical site with no remarkable findings. No drains are noted. She is voiding on her own in the toilet. No lymphadenopathy. HEENT: Unremarkable. NECK: Supple. LUNGS: Symmetric with clear breath sounds. HEART: S1 and S2. Regular rate. No S3 or S4. ABDOMEN: Soft, not distended or tender. No ascites. No bladder distention. EXTREMITIES: No other joint inflammatory process noted. NEUROLOGIC: Nonfocal including cognitive function. LABORATORY DATA: Chemistry is normal. White cell count is 11.5, hemoglobin 9.4 , and platelets 437 with a normal differential. Cultures thus far only the synovial fluid from 12/16 with Staph hominis and the most recent sample from yesterday with no organisms seen in the Gram stain. There is a venogram from long time ago, but no current imaging studies. ASSESSMENT: 1. Obesity. 2. Hypertension. 3. 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 PLAN: Awaiting on the latest culture results. We will treat assuming the MRSE as a likely culprit with vancomycin plus rifampin for 6 weeks and then switch to rifampin and doxycycline for 3 to 6 months and then doxycycline suppressive therapy indefinitely. PICC line placement. There is evidence that longer course of double oral antimicrobial tx and discontinuation at one year leads to superior outcomes. Job ID: [id number] [facility]
[2019-12-21] MEDS: Rifampin 300 MG CAP PO SCH (20:32)
[2019-12-21] MEDS: Atorvastatin Calcium 10 MG TAB PO SCH (20:32)
[2019-12-22] MEDS: Sodium Chloride 0.9% 1,000 ML IV SCH ×3 (04:47→12:53)
[2019-12-22 05:37] LABS: Hemoglobin 8.3 g/dL (12.0-16.0); Mean Corpuscular HGB CONC 32.7 g/dL (32.0-36.0); Mean Corpuscular Hemoglobin 28.8 pg (27.0-31.0); Mean Corpuscular Volume 88.1 fL (78.0-98.0); Mean Platelet Volume 7.7 fL (7.4-10.4); Platelet Count 389 thou/uL (130-400); RBC Distribution Width 14.5 % (11.5-14.5); White Blood Cell (WBC) Count 11.4 thou/uL (4.8-10.8)
[2019-12-22] MEDS: Mometasone/Formoterol 120 PUFF INHALER INH SCH ×2 (06:49→18:46)
--- NOTE | 2019-12-22 07:11 | PDOC.FM ---
- Subjective Subjective: pt resting comfortably in bed, denies pain or bleeding - Objective Vital Signs & Weight: Vital Signs (12 hours) Temp Pulse Resp BP Pulse Ox 12/22/19 04:45 97.4 F L 74 18 112/76 97 12/22/19 01:06 98.5 F 85 20 105/56 L 96 12/21/19 20:00 98.3 F 74 18 126/73 96 Weight Admit Weight 122.47 kg Weight 122.47 kg I&O: 12/21/19 12/22/19 12/23/19 05:59 06:59 06:59 Intake Total Balance Result Diagrams: 12/22/19 05:11 12/20/19 12:31 Phys Exam - Physical Examination Constitutional: NAD HEENT: moist MMs Neck: no JVD Gastrointestinal: no distention Musculoskeletal: no edema Neurological: moves all 4 limbs Psychiatric: normal affect Skin: no rash Dx/Plan (1) (HFpEF) heart failure with preserved ejection fraction Code(s): I50.30 - UNSPECIFIED DIASTOLIC (CONGESTIVE) HEART FAILURE Status: Acute (2) COPD (chronic obstructive pulmonary disease) Status: Acute (3) GERD (gastroesophageal reflux disease) Code(s): K21.9 - GASTRO-ESOPHAGEAL REFLUX DISEASE WITHOUT ESOPHAGITIS Status: Acute (4) HLD (hyperlipidemia) Code(s): E78.5 - HYPERLIPIDEMIA, UNSPECIFIED Status: Acute (5) Hx of supraventricular tachycardia Code(s): Z86.79 - PERSONAL HISTORY OF OTHER DISEASES OF THE CIRCULATORY SYSTEM Status: Acute (6) Osteoarthritis Code(s): M19.90 - UNSPECIFIED OSTEOARTHRITIS, UNSPECIFIED SITE Status: Acute (7) HTN (hypertension) Code(s): I10 - ESSENTIAL (PRIMARY) HYPERTENSION Status: Chronic Qualifiers: (8) VICKY on CPAP Code(s): G47.33 - OBSTRUCTIVE SLEEP APNEA (ADULT) (PEDIATRIC); Z99.89 - DEPENDENCE ON OTHER ENABLING MACHINES AND DEVICES Status: Chronic - Plan Plan: infected R knee s/p washout and replacement - pain mgmt per primary team - abx selection per Dr. Narayanan HTN, at goal, continue home meds VICKY- home cpap GERD- continue home meds hx of SVT- nsr asthma- home meds HLD- home meds Dispo: await cx results, treat presumptively MRSA fdc abx Addendum - Attending - Attending Attestation Date/Time: 12/22/19 0751 I personally evaluated the patient and discussed the management with Dr. Julian. I agree with the History, Examination, Assessment and Plan documented above with any addition or exceptions noted below.
[2019-12-22] MEDS: Amlodipine 10 MG TAB PO SCH (08:31)
[2019-12-22] MEDS: Aspirin 81 mg Enteric Coated Tablet PO SCH ×2 (08:32→21:08)
[2019-12-22] MEDS: Ascorbic Acid 500 mg Chewable Tablet PO SCH (08:32)
[2019-12-22] MEDS: CeleCOXIB 100 MG CAP PO SCH (08:33)
[2019-12-22] MEDS: Baclofen 10 MG TAB PO SCH ×2 (08:33→21:08)
[2019-12-22] MEDS: Famotidine 20 MG TAB PO SCH ×2 (08:35→21:08)
[2019-12-22] MEDS: Ferrous Gluconate 324 MG TAB PO SCH ×2 (08:35→21:08)
[2019-12-22] MEDS: Magnesium Oxide 250 MG TAB PO SCH (08:36)
[2019-12-22] MEDS: Losartan 25 MG TAB PO SCH (08:36)
[2019-12-22] MEDS: Senokot S 8.6-50 MG TAB PO SCH ×2 (08:37→21:08)
[2019-12-22] MEDS: Montelukast Sodium 10 mg Tablet PO SCH (08:37)
[2019-12-22] MEDS: Multivitamin W/ Minerals 1 TAB PO SCH (08:37)
[2019-12-22] MEDS: HYDROcodone/Acetaminophen 10/325 mg Tablet PO PRN ×2 (08:38→17:33)
[2019-12-22] MEDS: Rifampin 300 MG CAP PO SCH ×2 (08:39→21:08)
[2019-12-22] MEDS ORDERED: Vancomycin HCl 1.75 GM in Sodium Chloride 0.9% 500 ML IVPB SCH (09:00)
[2019-12-22 20:33] LABS: Vancomycin, Trough 29.3 ug/mL
[2019-12-22] MEDS: Atorvastatin Calcium 10 MG TAB PO SCH (21:08)
[2019-12-23] MEDS: HYDROcodone/Acetaminophen 10/325 mg Tablet PO PRN ×2 (02:05→08:58)
[2019-12-23] MEDS: Sodium Chloride 0.9% 1,000 ML IV SCH (05:24)
[2019-12-23 05:33] LABS: Hemoglobin 8.4 g/dL (12.0-16.0); Mean Corpuscular Hemoglobin 28.2 pg (27.0-31.0); Mean Platelet Volume 7.7 fL (7.4-10.4); Platelet Count 430 thou/uL (130-400); RBC Distribution Width 14.6 % (11.5-14.5); Red Blood Cell (RBC) Count 2.97 mill/uL (4.20-5.40); White Blood Cell (WBC) Count 10.4 thou/uL (4.8-10.8)
[2019-12-23] MEDS: Mometasone/Formoterol 120 PUFF INHALER INH SCH (07:43)
[2019-12-23] MEDS: Magnesium Oxide 250 MG TAB PO SCH (08:40)
[2019-12-23] MEDS: CeleCOXIB 100 MG CAP PO SCH (08:40)
[2019-12-23] MEDS: Famotidine 20 MG TAB PO SCH (08:42)
[2019-12-23] MEDS: Baclofen 10 MG TAB PO SCH (08:42)
[2019-12-23] MEDS: Aspirin 81 mg Enteric Coated Tablet PO SCH (08:42)
[2019-12-23] MEDS: Multivitamin W/ Minerals 1 TAB PO SCH (08:43)
[2019-12-23] MEDS: Ascorbic Acid 500 mg Chewable Tablet PO SCH (08:43)
[2019-12-23] MEDS: Senokot S 8.6-50 MG TAB PO SCH (08:44)
[2019-12-23] MEDS: Amlodipine 10 MG TAB PO SCH (08:44)
[2019-12-23] MEDS: Montelukast Sodium 10 mg Tablet PO SCH (08:44)
[2019-12-23] MEDS: Ferrous Gluconate 324 MG TAB PO SCH (08:45)
[2019-12-23] MEDS: Rifampin 300 MG CAP PO SCH (08:45)
[2019-12-23] MEDS: Losartan 25 MG TAB PO SCH (08:45)
[2019-12-23] MEDS ORDERED: Vancomycin 1 GM in Premix Bag 1 BAG IVPB SCH ×2 (09:00→13:00)
--- NOTE | 2019-12-23 09:18 | PDOC.FM ---
- Subjective Subjective: Pt feelign well this AM, no new complaints, pain controlled no fever/chills, no cp no sob - Objective Vital Signs & Weight: Vital Signs (12 hours) Temp Pulse Resp BP BP Pulse Ox 12/23/19 08:44 84 120/73 12/23/19 08:01 98.6 F 84 16 120/73 96 12/23/19 07:43 72 16 96 12/23/19 02:33 97.9 F 81 18 122/72 96 Weight Admit Weight 122.47 kg Weight 122.47 kg I&O: 12/22/19 12/23/19 12/24/19 06:59 06:59 06:59 Intake Total 1260 Balance 1260 Result Diagrams: 12/23/19 04:44 12/20/19 12:31 Phys Exam - Physical Examination Constitutional: NAD HEENT: moist MMs, sclera anicteric Neck: no nodes, no JVD Respiratory: no wheezing, clear to auscultation bilateral Cardiovascular: RRR, no significant murmur Gastrointestinal: soft, non-tender Musculoskeletal: no edema, pulses present Neurological: non-focal, normal sensation Psychiatric: normal affect, A&O x 3 Skin: no rash, normal turgor Dx/Plan (1) GERD (gastroesophageal reflux disease) Code(s): K21.9 - GASTRO-ESOPHAGEAL REFLUX DISEASE WITHOUT ESOPHAGITIS Status: Acute (2) HLD (hyperlipidemia) Code(s): E78.5 - HYPERLIPIDEMIA, UNSPECIFIED Status: Acute (3) Hx of supraventricular tachycardia Code(s): Z86.79 - PERSONAL HISTORY OF OTHER DISEASES OF THE CIRCULATORY SYSTEM Status: Acute (4) Osteoarthritis Code(s): M19.90 - UNSPECIFIED OSTEOARTHRITIS, UNSPECIFIED SITE Status: Acute (5) Status post total right knee replacement Code(s): Z96.651 - PRESENCE OF RIGHT ARTIFICIAL KNEE JOINT Status: Acute (6) Asthma Code(s): J45.909 - UNSPECIFIED ASTHMA, UNCOMPLICATED Status: Chronic (7) HTN (hypertension) Code(s): I10 - ESSENTIAL (PRIMARY) HYPERTENSION Status: Chronic Qualifiers: (8) Obesity Code(s): E66.9 - OBESITY, UNSPECIFIED Status: Chronic Qualifiers: Body mass index: BMI 40.0-44.9 - Plan Plan: infected R knee s/p washout and replacement - pain mgmt per primary team - abx selection per Dr. Narayanan, currently vanc and rifampin HTN - at goal, continue home meds VICKY - home cpap GERD - continue home meds hx of SVT - nsr asthma - home meds HLD - home meds Dispo: await cx results, treat presumptively MRSA terminologist abx Addendum - Attending - Attending Attestation Date/Time: 12/23/19 1036 I personally evaluated the patient and discussed the management with Dr. Black I agree with the History, Examination, Assessment and Plan documented above with any addition or exceptions noted below. HD#3 Patient to get PICC line this morning for extended antibiotics. Lady following. Will stop IVFs. Add anticoag for DVT PPx due to increased risk from decreased mobility, surgery, and infection. Will start oral. Will likely be d/c' ed by ortho soon. Reed
--- NOTE | 2019-12-23 12:08 | SPC ---
Sonographic guided left upper extremity PICC placement HISTORY: Osteomyelitis. FINDINGS: After explaining the procedure and answering all questions, left upper extremity was preppe d and draped in usual sterile fashion. Sterile technique, buffered local anesthesia, sonographic guidance, and a 22-gauge needle were used to carefully access the left cephalic vein. Standard techni que was used to to place the tip of a 5 Turkish single lumen PICC so that the tip lies at the level of the superior vena cava. The catheter was flushed and secured externally. Patient tolerated the pro cedure well and was returned in unchanged condition. Fluoroscopy time 0 seconds. IMPRESSION: Left upper extremity PICC is ready for use.
[2019-12-23 17:11] VITALS: BP 126/74; TEMP 98.6
[2019-12-23] MEDS ORDERED: Apixaban 2.5 MG TAB PO SCH (21:00)
--- NOTE | 2019-12-24 14:14 | DIS ---
DATE OF ADMISSION: 12/20/2019 DATE OF DISCHARGE: 12/23/2019 DISCHARGE DISPOSITION: To home. ADMISSION DIAGNOSIS: Right knee septic arthritis. CONSULTANTS: [facility], [facility], and Dr. Dutch Narayanan. BRIEF CLINICAL HISTORY: Reta is a 59-year-old female, who recently had a total knee arthroplasty approximately 7 weeks ago. She had an episode of cellulitis, which was treated conservatively. However, the last week or so she has had increased pain, fevers, discomfort, and buckling symptoms of the right knee. This is all new to her. She has been readmitted for irrigation, debridement, and washout after a culture positive of Staphylococcus species was grown out of the culture drawn 2 days prior to admission. HOSPITAL COURSE: The patient was admitted. She underwent incision, drainage, washout and poly swap of the prosthetic knee. We actually upsized to 13 from an 11. The culture obtained at surgery grew no organisms. However, she has been treated with antibiotics in the past. Her hospital course was unremarkable. Dr. Narayanan was consulted. He placed a PICC line. The patient has been treated with suspected MRSE. He initiated vancomycin and rifampin, but the plan is to switch to doxy indefinitely. At the time of discharge, the patient is afebrile. She is ambulatory in a full weightbearing fashion, tolerating regular diet, voiding without difficulty. Her incision is clean. No strikethrough. No erythema is noted. She has no drainage. DISCHARGE MEDICATIONS: Please see medication reconciliation form. We will be happy to see the patient on an as-needed basis between now and her next scheduled appointment. CONDITION ON DISCHARGE: Stable. PROGNOSIS: Good. Job ID: [id number]
--- NOTE | 2019-12-30 08:22 | PQF ---
PATRIC DIMAS, RAE r* [id number] SURG A- 3330 [id number] CLINICAL DOCUMENTATION IMPROVEMENT CLARIFICATION FORM: ICD-10 Updated PLEASE DO AN ADDENDUM TO THE PROGRESS NOTE WITH ANY DOCUMENTATION UPDATES OR ADDITIONS AND CARRY THROUGH TO DC SUMMARY. THANK YOU. DATE: 12-24-19 ATTN: DR. BENAVIDES / DR. WOODRUFF Please exercise your independent, professional judgment in responding to the clarification form. Clinical indicators are provided on the bottom of this form for your review Please check appropriate box(s) to clarify if the following diagnosis has been ruled in or ruled out: [ ] CHRONIC DIASTOLIC CHF [ ] No history of CHF [ ] Other diagnosis [ ] Unable to determine For continuity of documentation, please document condition throughout progress notes and discharge summary. Thank You. CLINICAL INDICATORS - SIGNS / SYMPTOMS / LABS / RESULTS AND LOCATION IN MR 3-8 PN (WEST): HFpEF - UNSPECIFIED DIASTOLIC CHF - ACUTE LABS: NO BNP RADIOLOGY: NO CXR RISK FACTORS / RESULTS AND LOCATION IN MR 3-6 Physician office H&P (Iero): HX OF HIGH BLOOD PRESSURE TREATMENTS / RESULTS AND LOCATION IN MR MAR - LASIX 40 MB PO DAILY PRN FOR EDEMA - NONE GIVEN 3-6 Physician office H&P (Iero): Current Home Medications - Lasix THANK YOU, BONNIE (This form is maintained as a part of the permanent medical record) 2014 [employer]. All Rights Reserved Bonnie Nino RN, BS [email or web address] [facility]
== END 2019-12-23 17:00 | disposition home or self-care (01) | DRG 467 ==
LOC: SDC 11:50 → SURG A 16:19
PROVIDERS: ADMIT Orthopaedic Surgery; ATTEND Orthopaedic Surgery
PROC: 0SPV0JZ Removal of Synthetic Substitute from Right Knee Joint, Tibial Surface, Open Approach (ICD-10-PCS; 2019-12-20)
PROC: 0SRV0JZ Replacement of Right Knee Joint, Tibial Surface with Synthetic Substitute, Open Approach (ICD-10-PCS; 2019-12-20)
PROC: 0S9C0ZZ Drainage of Right Knee Joint, Open Approach (ICD-10-PCS; 2019-12-20)
PROC: 02HV33Z Insertion of Infusion Device into Superior Vena Cava, Percutaneous Approach (ICD-10-PCS; principal; 2019-12-23)
DX: T84.53XA Infection and inflammatory reaction due to internal right knee prosthesis, initial encounter (principal); I50.32 Chronic diastolic (congestive) heart failure; K21.9 Gastro-esophageal reflux disease without esophagitis; G47.33 Obstructive sleep apnea (adult) (pediatric); E78.5 Hyperlipidemia, unspecified; J45.909 Unspecified asthma, uncomplicated; E66.9 Obesity, unspecified; B95.62 Methicillin resistant Staphylococcus aureus infection as the cause of diseases classified elsewhere; I11.0 Hypertensive heart disease with heart failure; G43.909 Migraine, unspecified, not intractable, without status migrainosus; G47.00 Insomnia, unspecified; Y83.8 Other surgical procedures as the cause of abnormal reaction of the patient, or of later complication, without mention of misadventure at the time of the procedure; Z68.38 Body mass index [BMI] 38.0-38.9, adult; Z86.79 Personal history of other diseases of the circulatory system; Z98.82 Breast implant status; Z90.710 Acquired absence of both cervix and uterus; Z90.722 Acquired absence of ovaries, bilateral; Z98.890 Other specified postprocedural states; Z99.89 Dependence on other enabling machines and devices
CPT/HCPCS: 36415; 36416; 36569; 80048; 80202; 85025; 85027; 86140; 87070; 87205; 93005; 93010; C1751; C1776; J0670; J1100; J1200; J1644; J2001; J2250; J2405; J2550; J2704; J2765; J3010; J3370; J3490; J7050

== ENCOUNTER 2020-02-10 13:23 | Outpatient (CLI) | payer OTHER ==
--- NOTE | 2020-02-10 14:14 | ULT ---
RIGHT LOWER EXTREMITY VENOUS DOPPLER ULTRASOUND: HISTORY: Right lower extremity pain, knee replacement surgery December 20, 2019. TECHNIQUE: Rodriguez scale ultrasound with rodriguez scale, color flow, and spectral Doppler imaging of the deep venous sy stem of the left lower extremity was performed. FINDINGS: Exam is limited due to the patient's body habitus. There is good flow, compression, and augmentation noted in the common femoral, femoral, deep femoral, popliteal, posterior tibial, and greater sapheno us veins. There is a suggestion of a small fluid collection in the posterior popliteal region superior to the a fab of pain. No mass or fluid collection is seen in the area of pain in the upper calf. IMPRESSION: No evidence of deep vein thrombosis in the right lower extremity. POS: [facility]
== END 2020-02-10 13:24 | disposition home or self-care (01) ==
LOC: SCSULT 13:23
PROVIDERS: ATTEND Orthopaedic Surgery
DX: M79.604 Pain in right leg (principal); M79.89 Other specified soft tissue disorders

== ENCOUNTER 2021-06-22 12:20 | Outpatient (CLI) | payer OTHER | END 2021-06-22 12:21 | disposition home or self-care (01) | LOC: BICMRI 12:20 | PROVIDERS: ATTEND Orthopaedic Surgery | DX: M24.9 Joint derangement, unspecified (principal); S86.012A Strain of left Achilles tendon, initial encounter; S96.812A Strain of other specified muscles and tendons at ankle and foot level, left foot, initial encounter; M79.89 Other specified soft tissue disorders ==

== ENCOUNTER 2022-04-22 11:06 | Outpatient (CLI) | payer BC | END 2022-04-22 11:07 | disposition home or self-care (01) | LOC: BICULT 11:06 | PROVIDERS: ATTEND Surgery | DX: R10.11 Right upper quadrant pain (principal); N28.1 Cyst of kidney, acquired | CPT/HCPCS: 76705 ==

== ENCOUNTER 2022-09-26 11:00 | Inpatient (IN) | payer BC ==
[2022-10-13] MEDS ORDERED: Bupivacaine/Epinephrine 0.25% 30 ML VIAL ONE (06:40)
[2022-10-13] MEDS ORDERED: Fentanyl 250 MCG/5 ML VIAL ONE (06:51)
[2022-10-13] MEDS ORDERED: Ketamine 50 MG/ML (10ML VIAL) ONE (06:52)
[2022-10-13] MEDS ORDERED: MINERAL OIL/WHITE PETROLATUM 3.5 GM TUBE ONE (06:52)
[2022-10-13] MEDS ORDERED: Lidocaine 2% 6 ML SYR ONE (06:52)
[2022-10-13] MEDS ORDERED: SUGAMMADEX SODIUM 200 MG/2 ML VIAL ONE (06:52)
[2022-10-13] MEDS ORDERED: Propofol 500 MG/50 ML VIAL ONE (07:19)
[2022-10-13] MEDS ORDERED: PROPOFOL 20 ML ONE (07:19)
[2022-10-13] MEDS ORDERED: Famotidine/PF 20 mg/2ml Vial ONE (07:25)
[2022-10-13] MEDS ORDERED: Midazolam HCl 2 mg/2 ml Vial ONE (07:25)
[2022-10-13] MEDS ORDERED: Rocuronium Bromide 10 MG/ML (10ML VIAL) ONE (07:42)
[2022-10-13] MEDS ORDERED: Glycopyrrolate 0.2 MG/ML 5 ML SYRINGE ONE (07:42)
[2022-10-13] MEDS ORDERED: NEOSTIGMINE 3 MG/3 ML SYR 3 MG/3 ML SYRINGE ONE (07:42)
[2022-10-13] MEDS ORDERED: diphenhydrAMINE 50 MG/ML VIAL ONE (07:42)
[2022-10-13] MEDS ORDERED: PROPOFOL 200 MG/20 ML VIAL ONE (07:42)
[2022-10-13] MEDS ORDERED: Dexamethasone 20 MG/5 ML VIAL ONE (07:42)
[2022-10-13] MEDS ORDERED: Lidocaine 1% PF 5 ML VIAL ONE (07:42)
[2022-10-13] MEDS ORDERED: Ondansetron PF 4 MG/2 ML Vial ONE (07:42)
[2022-10-13 07:43] LABS: SARS-CoV-2 NAA Rapid Test Not Detected (NotDetected)
[2022-10-13] MEDS ORDERED: Levofloxacin 500 mg/D5W 100 ml Premix Bag ONE (07:55)
[2022-10-13] MEDS ORDERED: Promethazine HCl 25 MG/ML VIAL IM PRN ×3 (08:17→09:12)
[2022-10-13] MEDS ORDERED: Ondansetron PF 4 MG/2 ML Vial IVP PRN ×2 (08:17→09:12)
[2022-10-13] MEDS ORDERED: diphenhydrAMINE 50 MG/ML VIAL IM PRN (08:17)
[2022-10-13] MEDS ORDERED: diphenhydrAMINE 50 MG/ML VIAL IVP PRN ×2 (08:17→09:12)
[2022-10-13] MEDS ORDERED: HYDROmorphone 2 MG/ML VIAL SLOW IVP PRN (08:17)
[2022-10-13] MEDS ORDERED: FENTANYL 500 MCG/10 ML VIAL 2,000 MCG in Sodium Chloride 0.9% 60 ML IV PRN (08:17)
[2022-10-13] MEDS ORDERED: Naloxone HCl 0.4 mg/ml Vial IV PRN (08:17)
[2022-10-13] MEDS ORDERED: Promethazine HCl 25 MG/ML VIAL IVPB PRN (08:17)
[2022-10-13] MEDS ORDERED: Ondansetron HCl/PF 4 MG/2 ML Vial IVP PRN (08:17)
[2022-10-13] MEDS ORDERED: diphenhydrAMINE 25 MG CAP PO PRN (08:17)
[2022-10-13] MEDS ORDERED: Communication Order-Pharmacy FS SCH (08:30)
[2022-10-13] MEDS ORDERED: HYDROmorphone 0.5 MG/0.5 ML SYRINGE ONE (09:11)
[2022-10-13] MEDS ORDERED: hydrALAZINE 20 MG/ML VIAL SLOW IVP PRN (09:12)
[2022-10-13] MEDS ORDERED: Hydrocodone-Acetamin 15 ML UDCUP PO PRN (09:12)
[2022-10-13] MEDS ORDERED: Dextrose 5% in Water 1,000 ML IV PRN (09:12)
[2022-10-13] MEDS ORDERED: Dextrose 50% Abboject 50 ML SYRINGE SLOW IVP PRN (09:12)
[2022-10-13] MEDS ORDERED: Promethazine HCl 25 MG/ML VIAL ONE (09:25)
[2022-10-13] MEDS ORDERED: D5 1/2 NS w/20 mEq KCL 1,000 ML ONE (09:43)
[2022-10-13] MEDS ORDERED: Pantoprazole 40 MG VIAL IVP SCH (11:00)
[2022-10-13] MEDS ORDERED: Losartan/Hydrochlorothiazide 100 mg/25 mg Tablet PO SCH (11:00)
[2022-10-13] MEDS ORDERED: Montelukast Sodium 10 mg Tablet PO SCH (11:00)
[2022-10-13] MEDS: D5 1/2 NS w/20 mEq KCL 1,000 ML IV SCH ×2 (11:49→17:03)
[2022-10-13 11:52] VITALS: BMI 43.0
[2022-10-13] MEDS ORDERED: Ketorolac Tromethamine 30 MG/ML VIAL IVP SCH (19:15)
[2022-10-13] MEDS: Mometasone 100 MCG/Formoterol 5 MCG 120 PUFF INHALER INH SCH (19:28)
[2022-10-14] MEDS: D5 1/2 NS w/20 mEq KCL 1,000 ML IV SCH ×2 (02:37→09:06)
[2022-10-14] MEDS ORDERED: Hydrocodone-Acetamin 15 ML UDCUP PO PRN (04:54)
[2022-10-14] MEDS ORDERED: Enoxaparin Sodium 40 MG/0.4 ML SYRINGE SC SCH (06:00)
[2022-10-14 06:35] LABS: #Lymphocytes 1.8 thou/uL (1.20-3.40); #Monocytes 0.8 thou/uL (0.11-0.59); #Neutrophils 6.6 thou/uL (1.40-6.50); %Basophils 0.4 % (0.0-1.0); %Eosinophils 0.2 % (0.0-10.0); %Lymphocytes 19.6 % (21.0-51.0); %Monocytes 8.5 % (0.0-10.0); %Neutrophils 71.3 % (42.0-75.0); Hemoglobin 10.9 g/dL (12.0-16.0); Mean Corpuscular HGB CONC 32.5 g/dL (32.0-36.0); Mean Corpuscular Hemoglobin 29.9 pg (27.0-31.0); Mean Corpuscular Volume 92.2 fl (78.0-98.0); Mean Platelet Volume 8.1 fL (7.4-10.4); Platelet Count 309 10x3/uL (130-400); RBC Distribution Width 14.4 % (11.5-14.5); Red Blood Cell (RBC) Count 3.64 mill/uL (4.20-5.40); White Blood Cell (WBC) Count 9.3 10x3/uL (4.8-10.8)
[2022-10-14 07:08] LABS: Anion Gap 14 mmol/L (10-20); BUN (Urea Nitrogen) 19 mg/dL (9.8-20.1); Calc. Creatinine Clearance 106 mL/min (70-130); Calcium 9.1 mg/dL (7.8-10.44); Carbon Dioxide 26 mmol/L (23-31); Chloride 102 mmol/L (98-107); Estimated GFR 52; Glucose 112 mg/dL (80-115); Potassium 3.6 mmol/L (3.5-5.1); Sodium 138 mmol/L (136-145)
[2022-10-14] MEDS: Mometasone 100 MCG/Formoterol 5 MCG 120 PUFF INHALER INH SCH (07:54)
[2022-10-14] MEDS ORDERED: Losartan/Hydrochlorothiazide 100 mg/25 mg Tablet PO SCH (09:00)
[2022-10-14] MEDS ORDERED: Pantoprazole 40 MG VIAL IVP SCH (09:00)
[2022-10-14] MEDS ORDERED: Montelukast Sodium 10 mg Tablet PO SCH (09:00)
[2022-10-14 09:25] VITALS: BP 166/86; TEMP 98.3
[2022-10-15] MEDS ORDERED: Enoxaparin Sodium 40 MG/0.4 ML SYRINGE SC SCH (09:00)
== END 2022-10-14 11:20 | disposition home or self-care (01) | DRG 621 ==
LOC: SURG A 10-13 05:39 → SURG B 10-13 12:17
PROVIDERS: ADMIT Surgery; ATTEND Surgery
PROC: 0DB64Z3 Excision of Stomach, Percutaneous Endoscopic Approach, Vertical (ICD-10-PCS; principal; 2022-10-13)
PROC: 8E0W4CZ Robotic Assisted Procedure of Trunk Region, Percutaneous Endoscopic Approach (ICD-10-PCS; 2022-10-13)
DX: E66.01 Morbid (severe) obesity due to excess calories (principal); Z68.41 Body mass index [BMI] 40.0-44.9, adult; I10 Essential (primary) hypertension
CPT/HCPCS: 36415; 80048; 85025; 94760; C9113; J0360; J1100; J1170; J1200; J1650; J1885; J1956; J2250; J2405; J2550; J2704; J3010; J3480; S0028; U0002

== ENCOUNTER 2022-09-26 11:19 | Outpatient (CLI) | payer BC ==
[2022-09-26 13:17] LABS: #Eosinphils 0.2 10x3/uL (0.0-0.5); #Monocytes 0.5 10x3/uL (0.0-1.1); #Neutrophils 5.1 10x3/uL (1.5-8.4); %Basophils 0.5 % (0.0-2.0); %Eosinophils 2.2 % (0.0-6.0); %Lymphocytes 25.5 % (18.0-47.0); %Monocytes 6.5 % (0.0-10.0); %Neutrophils 64.9 % (40.0-75.0); Hemoglobin 11.2 g/dL (12.0-15.5); Mean Corpuscular HGB CONC 32.5 g/dL (32.0-36.0); Mean Corpuscular Hemoglobin 28.9 pg (27.0-33.0); Mean Corpuscular Volume 89.1 fl (81.6-98.3); Mean Platelet Volume 11.1 fl (7.4-10.4); Platelet Count 345 10x3/uL (150-450); RBC Distribution Width 15.7 % (11.5-14.5); Red Blood Cell (RBC) Count 3.87 10x6/uL (3.90-5.03); White Blood Cell (WBC) Count 7.9 10x3/uL (3.5-10.5)
[2022-09-26 13:36] LABS: ALT (SGPT) 13 U/L (8-55); AST (SGOT) 12 U/L (5-34); Albumin 3.9 g/dL (3.4-4.8); Alkaline Phosphatase 96 U/L (40-110); Anion Gap 15 mmol/L (10-20); BUN (Urea Nitrogen) 27 mg/dL (9.8-20.1); Bilirubin, Total 0.4 mg/dL (0.2-1.2); Calc. Creatinine Clearance 0 mL/min (70-130); Carbon Dioxide 26 mmol/L (23-31); Chloride 107 mmol/L (98-107); Estimated GFR 45; Globulin 2.7 g/dL (2.4-3.5); Glucose 87 mg/dL (80-115); Potassium 4.1 mmol/L (3.5-5.1); Protein, Total 6.6 g/dL (5.8-8.1); Sodium 144 mmol/L (136-145)
[2022-09-26 17:19] LABS: Hemoglobin A1c 5.8 % (4.0-6.0)
== END 2022-09-26 11:20 | disposition home or self-care (01) ==
LOC: LABBT 11:19
PROVIDERS: ATTEND Surgery
DX: Z01.818 Encounter for other preprocedural examination (principal); E66.01 Morbid (severe) obesity due to excess calories
CPT/HCPCS: 71046; 80053; 83036; 85025; 93005; 93010

== ENCOUNTER 2022-11-02 10:36 | Day surgery (SDC) | payer BC ==
[2022-11-02] MEDS ORDERED: Ondansetron PF 4 MG/2 ML Vial IVP PRN (10:48)
[2022-11-02] MEDS ORDERED: Multivitamins, Adult 10 ML, Thiamine HCl 100 MG in Sodium Chloride 0.9% 1,000 ML IV SCH (11:00)
[2022-11-02] MEDS ORDERED: Sodium Chloride 0.9% 1,000 ML IV SCH (11:00)
[2022-11-02 13:20] VITALS: BP 157/79; TEMP 98.3
[2022-11-02 14:22] LABS: ALT (SGPT) 42 U/L (8-55); AST (SGOT) 23 U/L (5-34); Albumin 3.4 g/dL (3.4-4.8); Alkaline Phosphatase 61 U/L (40-110); Anion Gap 15 mmol/L (10-20); BUN (Urea Nitrogen) 27 mg/dL (9.8-20.1); Bilirubin, Total 0.4 mg/dL (0.2-1.2); Calc. Creatinine Clearance 0 mL/min (70-130); Calcium 8.9 mg/dL (7.8-10.44); Carbon Dioxide 23 mmol/L (23-31); Chloride 106 mmol/L (98-107); Estimated GFR 26; Globulin 2.7 g/dL (2.4-3.5); Glucose 85 mg/dL (80-115); Potassium 3.2 mmol/L (3.5-5.1); Protein, Total 6.1 g/dL (5.8-8.1); Sodium 141 mmol/L (136-145)
== END 2022-11-02 15:10 | disposition home or self-care (01) ==
LOC: ONC/OP 10:36
PROVIDERS: ATTEND Surgery
DX: E86.0 Dehydration (principal); Z88.0 Allergy status to penicillin; Z91.048 Other nonmedicinal substance allergy status
CPT/HCPCS: 80053; 96365; 96366; J3411; J7050

== ENCOUNTER 2022-11-10 14:12 | Day surgery (SDC) | payer BC ==
[2022-11-10] MEDS ORDERED: Ondansetron PF 4 MG/2 ML Vial IVP PRN (14:48)
[2022-11-10] MEDS ORDERED: Sodium Chloride 0.9% 1,000 ML IV SCH (15:00)
[2022-11-10 15:12] VITALS: BP 151/64; TEMP 97.8
[2022-11-10] MEDS ORDERED: Ondansetron PF 4 MG/2 ML Vial ONE (15:34)
[2022-11-10] MEDS ORDERED: Multivitamins, Adult 10 ML, Thiamine HCl 100 MG in Sodium Chloride 0.9% 1,000 ML IV SCH (16:00)
== END 2022-11-10 18:01 | disposition home or self-care (01) ==
LOC: ONC/OP 14:12
PROVIDERS: ATTEND Surgery
DX: E86.0 Dehydration (principal); Z88.0 Allergy status to penicillin; Z91.048 Other nonmedicinal substance allergy status
CPT/HCPCS: 96361; 96365; 96366; J2405; J3411; J7050

== ENCOUNTER 2022-12-15 12:28 | Day surgery (SDC) | payer BC ==
[~2022-12-15 12:28] MED LIST changes: -Bupivacaine HCl 0.5%/Epinephrine 1:200,000/PF 30 ml Vial ONE; -Dexamethasone 20 MG/5 ML VIAL ONE; -EPHEDRINE 25 MG/5 ML SYRINGE ONE; -Lidocaine 1% PF 5 ML VIAL ONE; -Metoclopramide HCl 10 MG/2 ML VIAL ONE; +Ondansetron PF 4 MG/2 ML Vial IVP PRN; -Ondansetron PF 4 MG/2 ML Vial ONE; -PROPOFOL 200 MG/20 ML VIAL ONE; -diphenhydrAMINE 50 MG/ML VIAL ONE
[2022-12-15] MEDS ORDERED: Sodium Chloride 0.9% 1,000 ML IV SCH (12:30)
[2022-12-15 13:24] VITALS: BP 121/63; TEMP 97.9
== END 2022-12-15 16:09 | disposition home or self-care (01) ==
LOC: ONC/OP 12:28
PROVIDERS: ATTEND Surgery
DX: E86.0 Dehydration (principal); Z88.0 Allergy status to penicillin; Z91.048 Other nonmedicinal substance allergy status
CPT/HCPCS: 96361; 96365; J3411; J7050

== ENCOUNTER 2022-12-16 11:57 | Day surgery (SDC) | payer BC ==
[2022-12-16] MEDS ORDERED: Ondansetron PF 4 MG/2 ML Vial IVP PRN (12:06)
[2022-12-16] MEDS ORDERED: Sodium Chloride 0.9% 1,000 ML IV SCH (12:15)
[2022-12-16 12:35] VITALS: BP 136/71; TEMP 98
[2022-12-16] MEDS ORDERED: Ondansetron PF 4 MG/2 ML Vial ONE (12:50)
[2022-12-16 12:51] LABS: Anion Gap 15 mmol/L (10-20); BUN (Urea Nitrogen) 39 mg/dL (9.8-20.1); Calc. Creatinine Clearance 0 mL/min (70-130); Calcium 9.5 mg/dL (7.8-10.44); Carbon Dioxide 20 mmol/L (23-31); Chloride 108 mmol/L (98-107); Estimated GFR 31; Glucose 87 mg/dL (80-115); Potassium 3.9 mmol/L (3.5-5.1); Sodium 139 mmol/L (136-145)
== END 2022-12-16 14:27 | disposition home or self-care (01) ==
LOC: ONC/OP 11:57
PROVIDERS: ATTEND Surgery
DX: E86.0 Dehydration (principal); Z88.0 Allergy status to penicillin; Z91.048 Other nonmedicinal substance allergy status
CPT/HCPCS: 80048; 96365; 96366; 96375; J2405; J3411; J7050

== ENCOUNTER 2023-04-27 12:50 | Day surgery (SDC) | payer BC ==
[2023-04-27] MEDS ORDERED: Ondansetron PF 4 MG/2 ML Vial IVP PRN (13:08)
[2023-04-27] MEDS ORDERED: Sodium Chloride 0.9% 1,000 ML IV SCH (13:15)
[2023-04-27] MEDS ORDERED: Multivitamins, Adult 10 ML, Thiamine HCl 100 MG in Sodium Chloride 0.9% 1,000 ML IV SCH (13:15)
[2023-04-27] MEDS ORDERED: Ondansetron PF 4 MG/2 ML Vial ONE (13:35)
[2023-04-27 13:57] VITALS: BP 119/58; TEMP 98.2
== END 2023-04-27 15:50 | disposition home or self-care (01) ==
LOC: ONC/OP 12:50
PROVIDERS: ATTEND Surgery
DX: E86.0 Dehydration (principal); Z88.0 Allergy status to penicillin; Z91.048 Other nonmedicinal substance allergy status
CPT/HCPCS: 96365; 96366; 96375; J2405; J3411; J7050

== ENCOUNTER 2024-04-10 11:53 | Day surgery (SDC) | payer BC ==
[2024-04-10] MEDS ORDERED: Ondansetron PF 4 MG/2 ML Vial IVP PRN (12:14)
[2024-04-10] MEDS: Sodium Chloride 0.9% 1,000 ML IV SCH (12:15)
[2024-04-10 12:27] VITALS: BP 106/69
[2024-04-10] MEDS: Multivitamins, Adult 10 ML, Thiamine HCl 100 MG in Sodium Chloride 0.9% 1,000 ML IV SCH (12:37)
[2024-04-10 15:03] VITALS: TEMP 97.5
== END 2024-04-10 14:35 | disposition home or self-care (01) ==
LOC: ONC/OP 11:53
PROVIDERS: ATTEND Surgery
DX: E86.0 Dehydration (principal)
CPT/HCPCS: 96360; 96361; J3411; J7050

== ENCOUNTER 2025-07-14 11:58 | Emergency (ER) | payer BC ==
[2025-07-14] MEDS ORDERED: Ketorolac Tromethamine 30 MG (1 mL) VIAL ONE (12:44)
[2025-07-14] MEDS ORDERED: Ondansetron PF 4 MG/2 ML Vial ONE (12:44)
[2025-07-14 13:09] LABS: #Basophils 0.04 10x3/uL (0.0-0.2); #Eosinophils 0.14 10x3/uL (0.0-0.7); #Monocytes 0.56 10x3/uL (0.11-0.59); #Neutrophils 4.43 10x3/uL (1.40-6.50); %Basophils 0.6 % (0.0-1.0); %Eosinophils 2.0 % (0.0-10.0); %Lymphocytes 27.4 % (21.0-51.0); %Monocytes 7.8 % (0.0-10.0); %Neutrophils 61.9 % (42.0-75.0); Hematocrit 35.5 % (36.0-47.0); Hemoglobin 11.5 g/dL (12.0-16.0); Mean Corpuscular Hemoglobin 29.2 pg (27.0-31.0); Mean Corpuscular Volume 90.1 fL (78.0-98.0); Platelet Count 324 10x3/uL (130-400); Red Blood Cell (RBC) Count 3.94 mill/uL (4.20-5.40); White Blood Cell (WBC) Count 7.15 10x3/uL (4.8-10.8)
[2025-07-14 13:28] LABS: ALT (SGPT) 10 U/L (Less than 34); AST (SGOT) 17 U/L (11-34); Albumin 3.4 g/dL (3.1-4.5); Alkaline Phosphatase 66 U/L (40-110); Anion Gap 17 mmol/L (10-20); BUN (Urea Nitrogen) 17 mg/dL (9.8-20.1); Bilirubin, Total 0.3 mg/dL (0.3-1.2); Calc. Creatinine Clearance 0 mL/min (70-130); Calcium 9.2 mg/dL (7.8-10.44); Carbon Dioxide 24 mmol/L (23-31); Chloride 106 mmol/L (98-107); Globulin 2.9 g/dL (2.4-3.5); Glucose 76 mg/dL (80-115); Potassium 3.8 mmol/L (3.5-5.1); Sodium 143 mmol/L (136-145)
== END 2025-07-14 15:47 | disposition home or self-care (01) ==
LOC: ERS 11:58
DX: S76.812A Strain of other specified muscles, fascia and tendons at thigh level, left thigh, initial encounter (principal); I10 Essential (primary) hypertension; W18.30XA Fall on same level, unspecified, initial encounter; Z79.899 Other long term (current) drug therapy
CPT/HCPCS: 80053; 85025; 96374; 96375; J1885

== ENCOUNTER 2025-08-29 14:15 | Outpatient (CLI) | payer OTHER | END 2025-08-29 14:16 | disposition home or self-care (01) | LOC: SCSMRI 14:15 | PROVIDERS: ATTEND Family Medicine | DX: S76.302A Unspecified injury of muscle, fascia and tendon of the posterior muscle group at thigh level, left thigh, initial encounter (principal); S86.112A Strain of other muscle(s) and tendon(s) of posterior muscle group at lower leg level, left leg, initial encounter ==

== ENCOUNTER 2025-09-19 14:03 | Outpatient (CLI) | payer BC | END 2025-09-19 14:04 | disposition home or self-care (01) | LOC: SCSMRI 14:03 | PROVIDERS: ATTEND Orthopaedic Surgery | DX: M48.061 Spinal stenosis, lumbar region without neurogenic claudication (principal); S83.004D Unspecified dislocation of right patella, subsequent encounter; M47.816 Spondylosis without myelopathy or radiculopathy, lumbar region; M47.817 Spondylosis without myelopathy or radiculopathy, lumbosacral region; M43.16 Spondylolisthesis, lumbar region; M48.07 Spinal stenosis, lumbosacral region | CPT/HCPCS: 72148 ==

== ENCOUNTER 2025-09-24 12:25 | Outpatient (CLI) | payer BC ==
[2025-09-24 13:28] LABS: #Basophils 0.04 10x3/uL (0.0-0.2); #Eosinophils 0.22 10x3/uL (0.0-0.7); #Monocytes 0.70 10x3/uL (0.11-0.59); #Neutrophils 4.63 10x3/uL (1.40-6.50); %Basophils 0.5 % (0.0-1.0); %Eosinophils 2.6 % (0.0-10.0); %Lymphocytes 33.8 % (21.0-51.0); %Monocytes 8.3 % (0.0-10.0); %Neutrophils 54.7 % (42.0-75.0); Hematocrit 34.5 % (36.0-47.0); Hemoglobin 11.4 g/dL (12.0-16.0); Mean Corpuscular Hemoglobin 29.9 pg (27.0-31.0); Mean Corpuscular Volume 90.6 fL (78.0-98.0); Platelet Count 374 10x3/uL (130-400); Red Blood Cell (RBC) Count 3.81 mill/uL (4.20-5.40); White Blood Cell (WBC) Count 8.46 10x3/uL (4.8-10.8)
[2025-09-24 13:43] LABS: Anion Gap 13 mmol/L (10-20); BUN (Urea Nitrogen) 20 mg/dL (9.8-20.1); Calc. Creatinine Clearance 0 mL/min (70-130); Calcium 9.1 mg/dL (7.8-10.44); Carbon Dioxide 25 mmol/L (23-31); Chloride 108 mmol/L (98-107); Glucose 73 mg/dL (80-115); Potassium 3.9 mmol/L (3.5-5.1); Sodium 142 mmol/L (136-145)
== END 2025-09-24 12:26 | disposition home or self-care (01) ==
LOC: LABBT 12:25
PROVIDERS: ATTEND Orthopaedic Surgery
DX: Z01.818 Encounter for other preprocedural examination (principal); M23.41 Loose body in knee, right knee; S82.021D Displaced longitudinal fracture of right patella, subsequent encounter for closed fracture with routine healing
CPT/HCPCS: 80048; 85025; 93005; 93010

== ENCOUNTER 2025-10-01 05:19 | Day surgery (SDC) | payer BC ==
[2025-09-24 12:45] VITALS: BMI 30.1
[2025-10-01] MEDS ORDERED: Vancomycin HCl 1.5 GM VIAL ONE (06:20)
[2025-10-01] MEDS ORDERED: fentaNYL PF 100 MCG/2 ML SYRINGE ONE (06:24)
[2025-10-01] MEDS ORDERED: PROPOFOL 20 ML ONE (06:24)
[2025-10-01] MEDS ORDERED: Scopolamine 1 mg/72 hour Patch ONE (06:36)
[2025-10-01] MEDS ORDERED: Lidocaine 1% (PF) 30 ML VIAL ONE (07:20)
[2025-10-01] MEDS ORDERED: Ropivacaine 0.5% HCl/PF (150 MG/30 ML VIAL) ONE (07:21)
[2025-10-01] MEDS ORDERED: PROPOFOL 200 MG/20 ML VIAL ONE (07:21)
[2025-10-01] MEDS ORDERED: Ondansetron PF 4 MG/2 ML Vial IVP PRN (07:30)
[2025-10-01] MEDS ORDERED: HYDROcodone/Acetaminophen 10/325 mg Tablet PO PRN ×2 (07:30)
[2025-10-01] MEDS ORDERED: Ropivacaine 0.2% 550 ML 550 ML NERVE BLCK SCH (07:30)
[2025-10-01] MEDS ORDERED: Ondansetron PF 4 MG/2 ML Vial ONE (07:34)
[2025-10-01] MEDS ORDERED: diphenhydrAMINE 50 MG/ML VIAL ONE ×2 (09:02→09:20)
== END 2025-10-01 10:45 | disposition home or self-care (01) ==
LOC: SDC 05:19
PROVIDERS: ATTEND Orthopaedic Surgery
PROC: 0SCC0ZZ Extirpation of Matter from Right Knee Joint, Open Approach (ICD-10-PCS; principal; 2025-10-01)
DX: M23.41 Loose body in knee, right knee (principal); S82.021A Displaced longitudinal fracture of right patella, initial encounter for closed fracture; M48.061 Spinal stenosis, lumbar region without neurogenic claudication; S83.004A Unspecified dislocation of right patella, initial encounter; I10 Essential (primary) hypertension; J30.2 Other seasonal allergic rhinitis; Z88.0 Allergy status to penicillin; Z90.89 Acquired absence of other organs; Z91.048 Other nonmedicinal substance allergy status; Z98.890 Other specified postprocedural states; Z79.82 Long term (current) use of aspirin; Z79.899 Other long term (current) drug therapy; W18.43XA Slipping, tripping and stumbling without falling due to stepping from one level to another, initial encounter
CPT/HCPCS: A4306; J0665; J1010; J1100; J1200; J2003; J2250; J2405; J2704; J2795; J3010; J3490; L1830